=== PATIENT | male | born 1990 | race Caucasian/White ===

== ENCOUNTER 2017-08-18 15:19 | Inpatient (IN) | payer BC, OTHER ==
[~2017-08-18] VITALS: Ht 182.9 cm; Wt 134.7 kg
--- NOTE | ~2017-08-18 | EKG ---
[place], [place] ELECTROCARDIOGRAM REPORT NAME: SUZI BURLESON UNIT #: [id number] ROOM: 401 DOCTOR: ANAMARIA OLIVEROS MD BIRTHDATE: [birth year] DOS: 08/18/2017 TIME: 1703 hours. FINDINGS: 1. Normal sinus rhythm at 80 beats per minute. 2. Possible incomplete right bundle branch block. 3. No previous tracing is available for comparison. ANAMARIA OLIVEROS MD CM:EKGRPT:ELECTROCARDIOGRAM REPORT [id number] ANAMARIA OLIVEROS MD
[~2017-08-18 15:19] MED LIST: ADDERALL XR20 MG PO; ADDERALL30 MG PO; ATARAX,VISTARIL50 MG PO; ONDANSETRON HYDR4 M1 PO; SEPTRA DS 800 M1 TAB PO; ZESTRIL,PRINIVI10 MG PO; ZOLOFT50 MG PO
[2017-08-18 15:22] VITALS: BP 160/88
[2017-08-18 16:03] LABS: BASO % 0.2 % (0.0-1.0); EOS # 0.2 10*3/uL (0.0-0.4); EOS % 1.7 % (1.0-4.0); HEMATOCRIT 43.5 % (42.0-52.0); HEMOGLOBIN 14.2 g/dl (14.0-18.0); LYMPH # 1.6 10*3/uL (1.3-4.4); LYMPH % 13.4 % (27.0-41.0); MEAN CELL VOLUME 91.2 fl (80.0-94.0); MEAN CORPUSCULAR HGB 29.8 pg (27.0-31.0); MEAN CORPUSCULAR HGB CONC 32.6 g/dl (33.0-37.0); MEAN PLATELET VOLUME 9.7 fl (9.6-12.3); MONO # 0.9 10*3/uL (0.1-1.0); MONO % 7.4 % (3.0-9.0); NEUT # 9.3 10*3/uL (2.3-7.9); PLATELET COUNT AUTOMATED 241 10*3/uL (130-400); RED BLOOD COUNT 4.77 10*6/uL (4.50-5.90); RED CELL DISTRI WIDTH 12.8 % (0-14.5)
[2017-08-18 16:31] LABS: ALBUMIN 3.6 gm/dl (3.1-4.5); ALKALINE PHOSPHATASE 114 U/L (45-117); BUN 16 mg/dl (7-24); CHLORIDE 104 mmol/L (98-107); CREATININE 1.15 mg/dL (0.70-1.30); POTASSIUM 3.7 mmol/L (3.5-5.1); SGOT/AST 23 IU/L (3-35); SGPT/ALT 26 U/L (12-78); SODIUM 140 mmol/L (136-145); TOTAL PROTEIN 7.6 gm/dL (6.4-8.2)
[2017-08-18 16:40] VITALS: BP 139/79
[2017-08-18] MEDS ORDERED: ADDERALL 30 MG30 MG PO (17:21)
[2017-08-18 17:40] VITALS: BP 143/78
[2017-08-18 20:02] VITALS: BP 133/64
[2017-08-19 00:06] VITALS: BP 127/67
[2017-08-19 06:44] LABS: BASO % 0.3 % (0.0-1.0); EOS # 0.3 10*3/uL (0.0-0.4); EOS % 2.7 % (1.0-4.0); HEMATOCRIT 38.3 % (42.0-52.0); HEMOGLOBIN 12.4 g/dl (14.0-18.0); LYMPH # 1.2 10*3/uL (1.3-4.4); LYMPH % 11.5 % (27.0-41.0); MEAN CELL VOLUME 92.5 fl (80.0-94.0); MEAN CORPUSCULAR HGB CONC 32.4 g/dl (33.0-37.0); MONO % 10.1 % (3.0-9.0); NEUT # 7.5 10*3/uL (2.3-7.9); PLATELET COUNT AUTOMATED 210 10*3/uL (130-400); RED BLOOD COUNT 4.14 10*6/uL (4.50-5.90); RED CELL DISTRI WIDTH 12.9 % (0-14.5)
[2017-08-19 07:06] LABS: BUN 14 mg/dl (7-24); CHLORIDE 106 mmol/L (98-107); CHOLESTEROL 106 mg/dL (<200); CREATININE 1.05 mg/dL (0.70-1.30); HDL CHOLESTEROL 34 mg/dl (40-60); LDL CHOLESTEROL 54 mg/dL (9-159); SODIUM 141 mmol/L (136-145); TRIGLYCERIDES 90 mg/dl (<150); VLDL CHOLESTEROL 18 mg/dL (6-40)
[2017-08-19 07:14] LABS: INTERNATIONAL NORM RATIO 0.9 (2.0-3.5)
[2017-08-19 08:00] VITALS: BP 139/67; BP 94/80
[2017-08-19 08:15] LABS: VITAMIN D, 25-HYDROXY 18.2 ng/mL (30-100)
[2017-08-19 12:00] VITALS: BP 133/77
[2017-08-19 16:00] VITALS: BP 124/62
[2017-08-19 20:00] VITALS: BP 102/47; BP 163/78
[2017-08-20] VITALS: BP 142/67
[2017-08-20 06:13] LABS: BASO % 0.5 % (0.0-1.0); EOS # 0.4 10*3/uL (0.0-0.4); EOS % 5.3 % (1.0-4.0); HEMATOCRIT 37.6 % (42.0-52.0); HEMOGLOBIN 12.1 g/dl (14.0-18.0); LYMPH # 1.4 10*3/uL (1.3-4.4); LYMPH % 18.2 % (27.0-41.0); MEAN CELL VOLUME 92.4 fl (80.0-94.0); MEAN CORPUSCULAR HGB 29.7 pg (27.0-31.0); MEAN CORPUSCULAR HGB CONC 32.2 g/dl (33.0-37.0); MEAN PLATELET VOLUME 9.9 fl (9.6-12.3); MONO # 0.9 10*3/uL (0.1-1.0); MONO % 11.2 % (3.0-9.0); NEUT % 63.8 % (47.0-73.0); PLATELET COUNT AUTOMATED 219 10*3/uL (130-400); RED BLOOD COUNT 4.07 10*6/uL (4.50-5.90); RED CELL DISTRI WIDTH 12.8 % (0-14.5); WHITE BLOOD COUNT 7.8 10*3/uL (4.8-10.8)
[2017-08-20 06:47] LABS: BUN 8 mg/dl (7-24); CHLORIDE 111 mmol/L (98-107); CREATININE 0.91 mg/dL (0.70-1.30); POTASSIUM 3.9 mmol/L (3.5-5.1); SODIUM 144 mmol/L (136-145)
[2017-08-20 08:00] VITALS: BP 132/82
[2017-08-20 12:00] VITALS: BP 142/76
[2017-08-20 16:00] VITALS: BP 138/76
[2017-08-20 20:00] VITALS: BP 133/74; BP 142/80
[2017-08-21] VITALS: BP 147/82
[2017-08-21 06:04] LABS: BASO # 0.1 10*3/uL (0.0-0.1); BASO % 0.8 % (0.0-1.0); EOS # 0.5 10*3/uL (0.0-0.4); EOS % 7.3 % (1.0-4.0); HEMATOCRIT 37.7 % (42.0-52.0); HEMOGLOBIN 11.9 g/dl (14.0-18.0); LYMPH # 1.3 10*3/uL (1.3-4.4); LYMPH % 19.9 % (27.0-41.0); MEAN CELL VOLUME 93.8 fl (80.0-94.0); MEAN CORPUSCULAR HGB 29.6 pg (27.0-31.0); MEAN CORPUSCULAR HGB CONC 31.6 g/dl (33.0-37.0); MEAN PLATELET VOLUME 9.2 fl (9.6-12.3); MONO # 0.8 10*3/uL (0.1-1.0); MONO % 11.8 % (3.0-9.0); NEUT # 3.9 10*3/uL (2.3-7.9); NEUT % 59.3 % (47.0-73.0); PLATELET COUNT AUTOMATED 251 10*3/uL (130-400); RED BLOOD COUNT 4.02 10*6/uL (4.50-5.90); RED CELL DISTRI WIDTH 12.4 % (0-14.5); WHITE BLOOD COUNT 6.5 10*3/uL (4.8-10.8)
[2017-08-21 06:28] LABS: BUN 9 mg/dl (7-24); CHLORIDE 109 mmol/L (98-107); CREATININE 0.91 mg/dL (0.70-1.30); POTASSIUM 4.3 mmol/L (3.5-5.1); SODIUM 144 mmol/L (136-145)
[2017-08-21 08:00] VITALS: BP 149/87
[2017-08-21] MEDS ORDERED: BACTRIM 400-801 EACH PO (10:30)
[2017-08-21] MEDS ORDERED: VITAMIN D-32000 UNIT PO (10:30)
== END 2017-08-21 13:00 | disposition home or self-care (01) | DRG 854 ==
LOC: ED 15:19 → EDHOLD 16:47 → 4E 16:47
PROVIDERS: Internal Medicine; Nurse Practitioner Family
PROC: 0JBP0ZZ Excision of Left Lower Leg Subcutaneous Tissue and Fascia, Open Approach (ICD-10-PCS; principal; 2017-08-20)
DX: A41.9 Sepsis, unspecified organism (principal); E87.2 Acidosis; L03.116 Cellulitis of left lower limb; R65.20 Severe sepsis without septic shock; R73.9 Hyperglycemia, unspecified; B96.89 Other specified bacterial agents as the cause of diseases classified elsewhere; I10 Essential (primary) hypertension; F90.9 Attention-deficit hyperactivity disorder, unspecified type; F17.210 Nicotine dependence, cigarettes, uncomplicated; E55.9 Vitamin D deficiency, unspecified; E53.8 Deficiency of other specified B group vitamins; Z82.49 Family history of ischemic heart disease and other diseases of the circulatory system; Z83.3 Family history of diabetes mellitus; Z79.899 Other long term (current) drug therapy

== ENCOUNTER → 2017-08-23 | Outpatient (CLI) | payer BC, OTHER ==
[~2017-08-23] MED LIST changes: +ADDERALL 30 MG30 MG PO; +BACTRIM 400-801 EACH PO; +VITAMIN D-32000 UNIT PO
== END ==
LOC: WOUNDCARE 08:45
DX: S81.812A Laceration without foreign body, left lower leg, initial encounter (principal); I10 Essential (primary) hypertension; F17.210 Nicotine dependence, cigarettes, uncomplicated; X58.XXXA Exposure to other specified factors, initial encounter; Y93.89 Activity, other specified; Y92.89 Other specified places as the place of occurrence of the external cause; Y99.8 Other external cause status

== ENCOUNTER → 2017-09-03 | Outpatient (CLI) | payer BC, OTHER | END | disposition home or self-care (01) | LOC: WOUNDCARE 09:31 | DX: L97.821 Non-pressure chronic ulcer of other part of left lower leg limited to breakdown of skin (principal); I10 Essential (primary) hypertension; F90.9 Attention-deficit hyperactivity disorder, unspecified type; F10.239 Alcohol dependence with withdrawal, unspecified; F17.200 Nicotine dependence, unspecified, uncomplicated; Z71.6 Tobacco abuse counseling ==

== ENCOUNTER 2018-10-31 16:01 | Inpatient (IN) | payer BC ==
[~2018-10-31] VITALS: Ht 185.4 cm; Wt 127.0 kg
[2018-10-31] MEDS ORDERED: TOBRADEX 0.1%-0.5 ML OD (16:38)
--- NOTE | 2018-10-31 16:56 | NUR ---
PATIENT MEETS [facility]. CIWA=19. PATIENT WANTS RESIDENTIAL TREATMENT. [place] STAFF WILL PROVIDE REFERRAL OPTIONS. JAN KELLEY B.A. BASEBALL GLOVE STUFFER
--- NOTE | 2018-10-31 17:00 | NUR ---
27 year old MALE admitted to room # 427-1 for stabilization. Reports an addiction to ALCOHOL last used 2 hours prior to admission. Compliant with admission procedure. Patient reports anxiety, sleeplessness and tremors, but is able to sit still, able to focus eyes on nurse during interview. See assessment forms for additional information about patient status.
[2018-10-31 17:01] VITALS: BP 154/91
[2018-10-31 17:41] LABS: BASO # 0.1 10*3/uL (0.0-0.1); BASO % 1.2 % (0.0-1.0); EOS # 0.2 10*3/uL (0.0-0.4); HEMATOCRIT 43.6 % (42.0-52.0); HEMOGLOBIN 14.9 g/dl (14.0-18.0); LYMPH # 1.5 10*3/uL (1.3-4.4); LYMPH % 29.4 % (27.0-41.0); MEAN CELL VOLUME 101.6 fl (80.0-94.0); MEAN CORPUSCULAR HGB 34.7 pg (27.0-31.0); MEAN CORPUSCULAR HGB CONC 34.2 g/dl (33.0-37.0); MEAN PLATELET VOLUME 9.1 fl (9.6-12.3); MONO # 0.6 10*3/uL (0.1-1.0); MONO % 11.1 % (3.0-9.0); NEUT # 2.8 10*3/uL (2.3-7.9); NEUT % 54.7 % (47.0-73.0); PLATELET COUNT AUTOMATED 128 10*3/uL (130-400); RED BLOOD COUNT 4.29 10*6/uL (4.50-5.90); RED CELL DISTRI WIDTH 12.6 % (0-14.5); WHITE BLOOD COUNT 5.1 10*3/uL (4.8-10.8)
[2018-10-31 18:14] LABS: ALBUMIN 3.7 gm/dl (3.1-4.5); ALKALINE PHOSPHATASE 81 U/L (45-117); BUN 12 mg/dl (7-24); CHLORIDE 107 mmol/L (98-107); CREATININE 1.07 mg/dL (0.70-1.30); POTASSIUM 3.5 mmol/L (3.5-5.1); SGOT/AST 281 IU/L (3-35); SGPT/ALT 253 U/L (12-78); SODIUM 142 mmol/L (136-145); TOTAL PROTEIN 7.4 gm/dL (6.4-8.2)
--- NOTE | 2018-10-31 18:25 | NUR ---
MEDICATED WITH PRN IV ATIVAN FOR TREMORS/TWITCHING, ROBAXIN FOR MUSCLE CRAMPS, VISTARIL FOR ANXIETY, AND ALSO STARTED LIBRIUM SCHEDULED FOR WITHDRAWAL SYMPTOMS.
--- NOTE | 2018-10-31 18:37 | NUR ---
DR. ARMSTRONG NOTIFIED OF ETOH LEVEL.
[2018-10-31 18:51] LABS: BILIRUBIN NEGATIVE (NEGATIVE); BLOOD TRACE-INTACT (NEGATIVE); CLARITY CLEAR (CLEAR); COLOR YELLOW (YELLOW); GLUCOSE NEGATIVE (NEGATIVE); KETONE TRACE (NEGATIVE); LEUKO ESTERASE NEGATIVE (NEGATIVE); NITRITE NEGATIVE (NEGATIVE); SPECIFIC GRAVITY 1.015 (1.005-1.030)
[2018-10-31 18:58] LABS: URINE AMPHETAMINES < 1000 (1000ng/ml); URINE BARBITURATES < 200 (200ng/ml); URINE BENZODIAZEPINES < 200 (200ng/ml); URINE CANNABINOIDS (THC) < 50 (50ng/ml); URINE COCAINE < 300 (300ng/ml); URINE METHADONE < 300 (300ng/ml); URINE OPIATES < 300 (300ng/ml)
[2018-10-31 19:00] LABS: URINE PHENCYCLIDINE < 25 (25ng/ml)
[2018-10-31] MEDS ORDERED: [UNRECOGNIZED DRUG - OTHER] OD (19:00)
[2018-10-31] MEDS ORDERED: ADDERALL 30 MG30 MG PO (19:02)
[2018-10-31 19:06] LABS: RBC 0-2 rbc/hpf (0-2)
[2018-10-31 20:00] VITALS: BP 140/72
--- NOTE | 2018-10-31 20:08 | NUR ---
194 ALL EARLIER MEDS EFFECTIVE. RESTING IN BED WITH EYES CLOSED. APPEARS TO BE SLEEPING. VISITOR AT BEDSIDE. MESSAGE TO PHARMACY FOR MVI BAG. NO DISTRESS NOTED.
--- NOTE | 2018-10-31 22:06 | NUR ---
REMAINS SLEEPING WITHOUT DISTRESS. MVI BAG INFUSING WELL IV SITE LH.
--- NOTE | 2018-10-31 23:40 | NUR ---
AWAKE AND ALERT. ROUTINE LIBRIUM PO GIVEN ORDERED. TRAZADONE PER REQUEST FOR SLEEP. WILL MONITOR. RESTING IN BED WATCHING TV. STILL SMELLS OF ALCOHOL. NO S/S OF DT'S NOTED AT PRESENT.
[2018-11-01] VITALS: BP 145/83
--- NOTE | 2018-11-01 00:33 | NUR ---
PT REMAINS AWAKE. TRAZADONE NOT EFFECTIVE YET. WILL CONT TO MONITOR.
--- NOTE | 2018-11-01 02:24 | NUR ---
0225 MEDICATED WITH VISTARIL FOR ANXIETY, ROBAXIN FOR MUSCLE ACHES AND ATIVAN IV FOR TREMORS. WILL MONITOR. REMAINS ALERT AND ORIENTED. HAD BEEN SLEEPING.
--- NOTE | 2018-11-01 03:26 | NUR ---
EARLIER MEDS EFFECTIVE. RESTING IN BED WITH EYES CLOSED. APPEARS TO BE SLEEPING. IV FLUIDS DONE.
[2018-11-01 04:00] VITALS: BP 130/80
--- NOTE | 2018-11-01 06:07 | NUR ---
SLEPT WELL THIS SHIFT. NO DISTRESS NOTED. HEP LOCK INTACT. CONDITION GUARDED.
[2018-11-01 08:00] VITALS: BP 154/82
[2018-11-01 12:00] VITALS: BP 158/104; BP 162/88
--- NOTE | 2018-11-01 13:35 | NUR ---
JAN FROM [facility] WAS NOTIFIED OF PT AND FAMILY REQUEST TO SPEAK TO HER.
--- NOTE | 2018-11-01 13:48 | NUR ---
[place] STAFF SPOKE WITH PATIENT AND FAMILY. PATIENT IS LOOKING FOR COUNSELING FOR HIS AFTERCARE PLAN. PATIENT IS INTERESTED IN RESIDENTIAL TREATMENT. [place] STAFF PROVIDED PATIENT WITH REFERRAL OPTIONS TO LOOK OVER WITH FAMILY. [place] STAFF WILL FOLLOW UP WITH PATIENT. JAN KELLEY B.A. HEALTHCARE SPECIALIST
--- NOTE | 2018-11-01 13:54 | NUR ---
DR AMRSTRONG CALLED AND NOTIFIED PT FAMILY REQUESTING TO SPEAK WITH . ALSO THIS MORNING AND NOON BP WAS ELEVATED.
--- NOTE | 2018-11-01 19:26 | NUR ---
MEDICATED WITH ROUTINE LIBRIUM. VISTARIL PO FOR ANXIETY. WILL MONITOR.
--- NOTE | 2018-11-01 20:10 | NUR ---
DR. SRIVASTAVA NOTIFIED OELEVATED BP AT 167/105 AND 168/110 MANUALLY. ORDERS RECEIVED. PT RESTING IN BED WWATCHING TV.
--- NOTE | 2018-11-01 20:28 | NUR ---
EARLIER MEDS EFFECTIVE.
--- NOTE | 2018-11-01 21:20 | NUR ---
2120 MEDICATED WITH TRAZADONE FOR SLEEP, ROBAXIN FOR MUSCLE ACHES AND ATIVAN IV FOR CONT ANXIETY. WILL MONITOR.
--- NOTE | 2018-11-01 22:02 | NUR ---
BP STILL ELEVATED AT 178/107. PT REQUESTING SOMETHING ELSE FOR NERVES. STATES "I FEEL LIKE I'M SPINNING IN CIRCLES. " REMAINS ALERT, NO TREMORS NOTED. NO DIAPHORESIS NOTED.
[2018-11-01 22:03] VITALS: BP 178/107
--- NOTE | 2018-11-01 22:06 | NUR ---
DR. SRIVASTAVA NOTIFIED OF PT CONT ELEVATED BP AND REQUSET FOR SOMETHING ELSE FOR ANXIETY.
--- NOTE | 2018-11-01 22:26 | NUR ---
2ND DOSE OF TRAZADONE GIVEN DUE TO INEFFECTIVENESS OF FIRST DOSE. CATPRES 0.1MG PO GIVEN PER ORDER. RESTING IN BED WATCHING TV. WILL CONT TO MONITOR.
--- NOTE | 2018-11-01 23:30 | NUR ---
DR. SRIVASTAVA MADE AWARE OF PATIENTS BP. WILL CONTINUE TO MONITOR. RECHECK AFTER LIBRIUM AND ATIVAN GIVEN.
[2018-11-02] VITALS: BP 172/104
--- NOTE | 2018-11-02 | NUR ---
Patient reports the following symptoms of withdrawal: body aches, leg pain, nausea and cocaine cravings. Patient given scheduled/PRN medication to control withdrawal symptoms. Close observation will be maintained. VISTARIL AND ZOFRAN GIVEN. WILL MONITOR AND REASSESS.
--- NOTE | 2018-11-02 02:07 | NUR ---
PATIENT RESTING, NO SIGNS OF DISTRESS. PRN MEDS EFFECTIVE.
--- NOTE | 2018-11-02 02:46 | NUR ---
24 HR chart check completed.
[2018-11-02 04:00] VITALS: BP 150/104
[2018-11-02 11:43] VITALS: BP 163/98
--- NOTE | 2018-11-02 12:16 | NUR ---
[facility] STAFF SENT PATIENT'S ASSESSMENT TO [facility]. THE FACILITY WILL NEED A PHONE ASSESSMENT WITH PATIENT. [place] STAFF WILL FOLLOW UP WITH PATIENT. JAN KELLEY B.A. INTAKE COORDIANTOR
--- NOTE | 2018-11-02 15:37 | NUR ---
PT C/O OF TREMORS, VISUAL HALLUCINATIONS AND ANXIETY PRN ATIVAN GIVEN PER ORDER
[2018-11-02 16:00] VITALS: BP 153/91
--- NOTE | 2018-11-02 19:45 | NUR ---
MEDICATED WITH LIBRIUM STRAIGHT ORDER & VISTARIL FOR ANXIETY. REQUESTING ATIVAN; INFORMED PATIENT THAT IT WAS TOO JADON TO BE GIVEN. PT. VERBALIZED UNDERSTANDING. CALL LIGHT WITHIN REACH. MOTHER & GIRLFRIEND PRESENT IN ROOM.
--- NOTE | 2018-11-02 21:55 | NUR ---
MEDICATED WITH ATIVAN FOR ANXIETY; ROBAXIN FOR MUSCLES ACHES & TRAZODONE FOR SLEEP.
[2018-11-02 22:27] VITALS: BP 162/110
--- NOTE | 2018-11-02 22:28 | NUR ---
CALLED DR. SRIVASTAVA PERTAINING TO PT'S BLOOD PRESSURE BEING ELEVATED. NO NEW ORDERS RECEIVED EXCEPT TO CONTINUE TO MONITOR PT'S BP.
[2018-11-03] VITALS: BP 154/110
[2018-11-03 04:00] VITALS: BP 154/108
[2018-11-03 04:01] VITALS: BP 148/100
--- NOTE | 2018-11-03 04:01 | NUR ---
MEDICATED WITH ATIVAN FOR C/O ANXIETY. PT'S VOICES NO OTHER C/O AT THIS TIME. CALL LIGHT WITHIN REACH. ALSO MEDICATED WITH LIBRIUM PER STRAIGHT ORDER.
--- NOTE | 2018-11-03 04:05 | NUR ---
CALLED DR. SRIVASTAVA PERTAINING TO PT'S ELEVATED BLOOD PRESSURE; HE STATED THAT THE BLOOD PRESSURE WAS GOOD & NO ORDERS RECEIVED. WILL CONTINUE TO MONITOR.
--- NOTE | 2018-11-03 06:00 | NUR ---
RESTING IN BED; VOICES NO C/O AT THIS TIME. CALL LIGHT WITHIN REACH.
[2018-11-03 07:02] LABS: BASO # 0.1 10*3/uL (0.0-0.1); BASO % 0.8 % (0.0-1.0); EOS # 0.2 10*3/uL (0.0-0.4); HEMATOCRIT 43.5 % (42.0-52.0); HEMOGLOBIN 14.8 g/dl (14.0-18.0); LYMPH % 14.1 % (27.0-41.0); MEAN CELL VOLUME 100.9 fl (80.0-94.0); MEAN CORPUSCULAR HGB 34.3 pg (27.0-31.0); MEAN PLATELET VOLUME 9.5 fl (9.6-12.3); MONO # 0.6 10*3/uL (0.1-1.0); MONO % 8.2 % (3.0-9.0); NEUT # 5.4 10*3/uL (2.3-7.9); NEUT % 73.1 % (47.0-73.0); PLATELET COUNT AUTOMATED 138 10*3/uL (130-400); RED BLOOD COUNT 4.31 10*6/uL (4.50-5.90); RED CELL DISTRI WIDTH 12.6 % (0-14.5); WHITE BLOOD COUNT 7.3 10*3/uL (4.8-10.8)
[2018-11-03 07:17] LABS: CREATININE 1.05 mg/dL (0.70-1.30)
--- NOTE | 2018-11-03 08:17 | NUR ---
24 HR chart check completed.
[2018-11-03 09:24] VITALS: BP 140/100
[2018-11-03 12:00] VITALS: BP 150/103
--- NOTE | 2018-11-03 12:11 | NUR ---
CALLED DR. ARMSTRONG IN REGARDS TO PT REQUESTING DISCHARGE. STATES HE WILL BE BACK AROUND AND WILL PLACE DISCHARGE.
--- NOTE | 2018-11-03 12:39 | NUR ---
PATIENT WAS ACCEPTED TO [facility] FOR RESIDENTIAL TREATMENT, HOWEVER PATIENT IS STILL UNDECIDED. PATIENT REFUSED ALL OTHER REFERRAL OPTIONS. PATIENT STATED THAT HE NEEDED MORE TIME TO DECIDE. PATIENT STATED THAT HE WILL NOTIFY HIS NURSE OR [place] STAFF ON HIS FINAL DECISION. JAN KELLEY B.A. FINISH GRINDER
--- NOTE | 2018-11-03 12:41 | NUR ---
ENTERED PT'S ROOM AND TOLD HIM THAT DR. ARMSTROGN WAS GOING TO BE UP TO SEE THE PATIENT THEN HE WOULD PLACE A D/C ORDER. TOLD PATIENT I WOULD BE BACK TO REMOVE HIS IV AND HIS MOTHER STATED THAT HE HAD ALREADY RIPPED OUT THE IV. NO SIGN OF BLEEDING OR SWELLING AT SITE. PATIENT ALSO REMOVED HIS MONITOR AND SAID THAT HE DID NOT WANT IT ON ANYMORE. WAITING FOR DR. ARMSTRONG TO ROUND AND D/C PATIENT.
--- NOTE | 2018-11-03 15:11 | NUR ---
Discharge instructions reviewed with patient/family. Patient receptive and verbalizes understanding. Follow-up care arranged. Written instructions given to patient/family. PT REMOVED HIS OWN IV AND MONITOR. PAPERWORK WAS GIVEN TO PATIENT AND PT STATED HE WANTED TO WALK DOWNSTAIRS. ALL QUESTIONS WERE ANSWERED. MOUNIKA WILKINS
== END 2018-11-03 15:11 | disposition home or self-care (01) | DRG 897 ==
LOC: 4E 16:01
PROVIDERS: Student in an Organized Health Care Education/Training Program; ADMIT Internal Medicine
DX: F10.239 Alcohol dependence with withdrawal, unspecified (principal); F41.9 Anxiety disorder, unspecified; I10 Essential (primary) hypertension; D75.89 Other specified diseases of blood and blood-forming organs; D69.6 Thrombocytopenia, unspecified; Z71.6 Tobacco abuse counseling; E55.9 Vitamin D deficiency, unspecified; E66.9 Obesity, unspecified; F17.210 Nicotine dependence, cigarettes, uncomplicated; F90.9 Attention-deficit hyperactivity disorder, unspecified type; Z68.36 Body mass index [BMI] 36.0-36.9, adult; E53.8 Deficiency of other specified B group vitamins

== ENCOUNTER 2019-02-20 22:01 | Inpatient (IN) | payer BC ==
[~2019-02-20] VITALS: Ht 185.4 cm; Wt 129.3 kg
[~2019-02-20 22:01] MED LIST changes: +TOBRADEX 0.1%-0.5 ML OD; +[UNRECOGNIZED DRUG - OTHER] OD
[2019-02-20 22:05] VITALS: BP 153/100
[2019-02-20 22:48] LABS: BASO # 0.1 10*3/uL (0.0-0.1); BASO % 0.9 % (0.0-1.0); EOS # 0.2 10*3/uL (0.0-0.4); EOS % 2.5 % (1.0-4.0); HEMATOCRIT 47.8 % (42.0-52.0); HEMOGLOBIN 16.1 g/dl (14.0-18.0); LYMPH % 25.7 % (27.0-41.0); MEAN CELL VOLUME 94.5 fl (80.0-94.0); MEAN CORPUSCULAR HGB 31.8 pg (27.0-31.0); MEAN CORPUSCULAR HGB CONC 33.7 g/dl (33.0-37.0); MONO # 0.7 10*3/uL (0.1-1.0); MONO % 9.3 % (3.0-9.0); NEUT # 4.9 10*3/uL (2.3-7.9); NEUT % 61.3 % (47.0-73.0); PLATELET COUNT AUTOMATED 176 10*3/uL (130-400); RED BLOOD COUNT 5.06 10*6/uL (4.50-5.90); RED CELL DISTRI WIDTH 13.7 % (0-14.5); WHITE BLOOD COUNT 7.9 10*3/uL (4.8-10.8)
[2019-02-20 23:01] LABS: ALBUMIN 3.9 gm/dl (3.1-4.5); ALKALINE PHOSPHATASE 88 U/L (45-117); BUN 11 mg/dl (7-24); CHLORIDE 107 mmol/L (98-107); CREATININE 1.03 mg/dL (0.70-1.30); POTASSIUM 3.6 mmol/L (3.5-5.1); SGOT/AST 126 IU/L (3-35); SGPT/ALT 136 U/L (12-78); SODIUM 142 mmol/L (136-145); TOTAL PROTEIN 7.8 gm/dL (6.4-8.2)
[2019-02-20 23:07] LABS: ACETAMINOPHEN (TYLENOL) < 5.0 ug/ml (10-30)
[2019-02-20 23:39] LABS: BILIRUBIN NEGATIVE (NEGATIVE); BLOOD TRACE-INTACT (NEGATIVE); CLARITY CLEAR (CLEAR); COLOR YELLOW (YELLOW); GLUCOSE NEGATIVE (NEGATIVE); KETONE NEGATIVE (NEGATIVE); LEUKO ESTERASE NEGATIVE (NEGATIVE); NITRITE NEGATIVE (NEGATIVE)
[2019-02-20 23:49] LABS: URINE AMPHETAMINES > 1000 (1000ng/ml); URINE BARBITURATES < 200 (200ng/ml); URINE BENZODIAZEPINES < 200 (200ng/ml); URINE CANNABINOIDS (THC) < 50 (50ng/ml); URINE COCAINE < 300 (300ng/ml); URINE METHADONE < 300 (300ng/ml); URINE OPIATES < 300 (300ng/ml)
[2019-02-20 23:51] LABS: URINE PHENCYCLIDINE < 25 (25ng/ml)
[2019-02-21] VITALS (9 sets, daily range): BP systolic 121–166; BP diastolic 70–89
[2019-02-22] VITALS: BP 142/97
[2019-02-22 04:00] VITALS: BP 142/87
[2019-02-22 06:07] LABS: ALBUMIN 3.4 gm/dl (3.1-4.5); ALKALINE PHOSPHATASE 79 U/L (45-117); BUN 18 mg/dl (7-24); CHLORIDE 107 mmol/L (98-107); CREATININE 0.95 mg/dL (0.70-1.30); POTASSIUM 3.7 mmol/L (3.5-5.1); SGOT/AST 62 IU/L (3-35); SGPT/ALT 94 U/L (12-78); SODIUM 141 mmol/L (136-145); TOTAL PROTEIN 6.9 gm/dL (6.4-8.2)
[2019-02-22 07:13] LABS: BASO % 0.9 % (0.0-1.0); EOS # 0.2 10*3/uL (0.0-0.4); EOS % 4.6 % (1.0-4.0); HEMATOCRIT 42.6 % (42.0-52.0); HEMOGLOBIN 14.2 g/dl (14.0-18.0); LYMPH # 1.1 10*3/uL (1.3-4.4); LYMPH % 24.4 % (27.0-41.0); MEAN CELL VOLUME 96.2 fl (80.0-94.0); MEAN CORPUSCULAR HGB 32.1 pg (27.0-31.0); MEAN CORPUSCULAR HGB CONC 33.3 g/dl (33.0-37.0); MEAN PLATELET VOLUME 9.7 fl (9.6-12.3); MONO # 0.5 10*3/uL (0.1-1.0); MONO % 11.1 % (3.0-9.0); NEUT # 2.5 10*3/uL (2.3-7.9); NEUT % 58.1 % (47.0-73.0); RED BLOOD COUNT 4.43 10*6/uL (4.50-5.90); RED CELL DISTRI WIDTH 13.7 % (0-14.5); WHITE BLOOD COUNT 4.3 10*3/uL (4.8-10.8)
[2019-02-22 08:00] VITALS: BP 140/89
[2019-02-22 08:32] LABS: PLATELET COUNT AUTOMATED 119 10*3/uL (130-400)
[2019-02-22 16:00] VITALS: BP 173/107
[2019-02-22 20:00] VITALS: BP 156/90; BP 157/96
[2019-02-23] VITALS: BP 154/85
[2019-02-23 06:39] LABS: BASO % 0.4 % (0.0-1.0); EOS # 0.3 10*3/uL (0.0-0.4); EOS % 4.2 % (1.0-4.0); HEMATOCRIT 43.4 % (42.0-52.0); HEMOGLOBIN 14.5 g/dl (14.0-18.0); LYMPH # 1.3 10*3/uL (1.3-4.4); LYMPH % 18.6 % (27.0-41.0); MEAN CORPUSCULAR HGB 32.1 pg (27.0-31.0); MEAN CORPUSCULAR HGB CONC 33.4 g/dl (33.0-37.0); MEAN PLATELET VOLUME 9.9 fl (9.6-12.3); MONO # 0.7 10*3/uL (0.1-1.0); MONO % 10.2 % (3.0-9.0); NEUT # 4.6 10*3/uL (2.3-7.9); NEUT % 65.9 % (47.0-73.0); PLATELET COUNT AUTOMATED 136 10*3/uL (130-400); RED BLOOD COUNT 4.52 10*6/uL (4.50-5.90); RED CELL DISTRI WIDTH 13.8 % (0-14.5); WHITE BLOOD COUNT 6.9 10*3/uL (4.8-10.8)
[2019-02-23 07:02] LABS: ALBUMIN 3.3 gm/dl (3.1-4.5); BUN 16 mg/dl (7-24); CHLORIDE 107 mmol/L (98-107); CREATININE 0.94 mg/dL (0.70-1.30); POTASSIUM 3.8 mmol/L (3.5-5.1); SGOT/AST 73 IU/L (3-35); SGPT/ALT 100 U/L (12-78); SODIUM 138 mmol/L (136-145); TOTAL PROTEIN 6.8 gm/dL (6.4-8.2)
[2019-02-23 07:03] LABS: ALKALINE PHOSPHATASE 85 U/L (45-117)
[2019-02-23 08:00] VITALS: BP 150/78
== END 2019-02-23 16:03 | disposition home or self-care (01) | DRG 897 ==
LOC: ED 22:01 → ICCU 02-21 04:07 → EDHOLD 02-21 04:07 → ICCU 02-21 12:09 → 4E 02-22 16:08
PROVIDERS: Emergency Medicine; Internal Medicine; ADMIT Internal Medicine
DX: F10.129 Alcohol abuse with intoxication, unspecified (principal); R73.9 Hyperglycemia, unspecified; R74.0 Nonspecific elevation of levels of transaminase and lactic acid dehydrogenase [LDH]; F90.9 Attention-deficit hyperactivity disorder, unspecified type; I10 Essential (primary) hypertension; D75.89 Other specified diseases of blood and blood-forming organs; F15.19 Other stimulant abuse with unspecified stimulant-induced disorder; K76.0 Fatty (change of) liver, not elsewhere classified; D72.810 Lymphocytopenia; E53.8 Deficiency of other specified B group vitamins; E55.9 Vitamin D deficiency, unspecified; F41.9 Anxiety disorder, unspecified; D69.6 Thrombocytopenia, unspecified; E66.9 Obesity, unspecified; F17.210 Nicotine dependence, cigarettes, uncomplicated; Z71.6 Tobacco abuse counseling; Z83.3 Family history of diabetes mellitus; Z82.49 Family history of ischemic heart disease and other diseases of the circulatory system; Z68.37 Body mass index [BMI] 37.0-37.9, adult

== ENCOUNTER 2019-06-12 17:16 | Inpatient (IN) | payer BC ==
[2019-06-12] VITALS (8 sets, daily range): BP systolic 140–175; BP diastolic 77–102
[~2019-06-12] VITALS: Ht 188 cm; Wt 128.0 kg
[2019-06-12 17:49] LABS: BASO # 0.1 10*3/uL (0.0-0.1); BASO % 0.8 % (0.0-1.0); EOS # 0.1 10*3/uL (0.0-0.4); EOS % 0.8 % (1.0-4.0); HEMATOCRIT 48.5 % (42.0-52.0); LYMPH # 1.2 10*3/uL (1.3-4.4); LYMPH % 18.4 % (27.0-41.0); MEAN CELL VOLUME 95.7 fl (80.0-94.0); MEAN CORPUSCULAR HGB 32.9 pg (27.0-31.0); MEAN CORPUSCULAR HGB CONC 34.4 g/dl (33.0-37.0); MEAN PLATELET VOLUME 8.7 fl (9.6-12.3); MONO # 0.4 10*3/uL (0.1-1.0); MONO % 6.6 % (3.0-9.0); NEUT # 4.6 10*3/uL (2.3-7.9); NEUT % 73.2 % (47.0-73.0); PLATELET COUNT AUTOMATED 170 10*3/uL (130-400); RED BLOOD COUNT 5.07 10*6/uL (4.50-5.90); RED CELL DISTRI WIDTH 12.7 % (0-14.5); WHITE BLOOD COUNT 6.3 10*3/uL (4.8-10.8)
[2019-06-12 18:00] LABS: ACT PARTIAL THROMBO TIME 28.7 SECONDS (20.0-32.1)
[2019-06-12 18:05] LABS: ALBUMIN 3.8 gm/dl (3.1-4.5); ALKALINE PHOSPHATASE 97 U/L (45-117); BUN 9 mg/dl (7-24); CHLORIDE 103 mmol/L (98-107); CREATININE 0.93 mg/dL (0.70-1.30); LIPASE 207 U/L (73-393); POTASSIUM 3.9 mmol/L (3.5-5.1); SGOT/AST 93 IU/L (3-35); SGPT/ALT 72 U/L (12-78); SODIUM 137 mmol/L (136-145)
--- NOTE | 2019-06-12 18:09 | NUR ---
PT IS RESTING IN BED WITH EYES CLOSED. PT IS STILL TACHYCARDIAC BUT BLOOD PRESSURE HAS IMPROVED. RESPIRATIONS ARE EASY AND NONLABORED. CALL QUINTEROS IS WITHIN REACH. WILL CONTINUE TO MONITOR.
[2019-06-12 18:11] LABS: ACETAMINOPHEN (TYLENOL) < 5.0 ug/ml (10-30); TROPONIN I < 0.015 ng/ml (<0.045)
[2019-06-12 18:27] LABS: BILIRUBIN NEGATIVE (NEGATIVE); BLOOD TRACE-INTACT (NEGATIVE); CLARITY SL CLOUDY (CLEAR); COLOR YELLOW (YELLOW); GLUCOSE NEGATIVE (NEGATIVE); KETONE TRACE (NEGATIVE); LEUKO ESTERASE NEGATIVE (NEGATIVE); NITRITE NEGATIVE (NEGATIVE); PH 8.5 (5.0-9.0); UROBILINOGEN 0.2 E.U./dl (0.2-1.0)
[2019-06-12 18:28] LABS: BACTERIA 1+
[2019-06-12 18:29] LABS: URINE AMPHETAMINES < 1000 (1000ng/ml); URINE BARBITURATES > 200 (200ng/ml); URINE BENZODIAZEPINES < 200 (200ng/ml); URINE CANNABINOIDS (THC) < 50 (50ng/ml); URINE COCAINE < 300 (300ng/ml); URINE METHADONE < 300 (300ng/ml); URINE OPIATES < 300 (300ng/ml); URINE PHENCYCLIDINE < 25 (25ng/ml)
--- NOTE | 2019-06-12 19:09 | NUR ---
PT RESTING IN BED WITH EYES CLOSED. IN NO ACUTE DISTRESS. SIDERAILS UPX2
--- NOTE | 2019-06-12 19:53 | NUR ---
A 28, admitted to [facility]U, under the services of MARINO Newton DO with a diagnosis of alchohol dependence and withdrawal. Chief complaint is pt was at [facility] day[facility]1 today and had elevated heart rate and blood pressure. Patient arrived via stretcher from ER. Monitor applied. Initial assessment completed. Vital signs taken and recorded. MARINO NEWTON DO notified of admission to the unit. Orders received. See assessment for past medical history, medications and allergies. Patient and/or family oriented to unit. [facility] visitation policy reviewed. Clothing/patient valuable form completed. ROLAN GUADALUPE
--- NOTE | 2019-06-12 20:11 | NUR ---
BOXED LUNCH AND MILK PROVIDED TO PT. PT IS TREMULOUS. HE IS APPROPRIATE AND COOPERATIVE AT THIS TIME. PHYSICIAN AT BEDSIDE.
--- NOTE | 2019-06-12 20:34 | NUR ---
PT ATE WELL. WATCHING TV. HAD REQUESTED SOMETHING TO RELAX HIM. MEDICATED WITH IV ATIVAN ORDERED FOR DT'S EVIDENCED BY TACHYCARDIA, RESTLESSNESS, AND +++ TREMULOUSNESS. IN VIEW OF STAFF, BED EXIT ALARM ON.
--- NOTE | 2019-06-12 20:45 | NUR ---
DR CARR NOTIFIED OF LACTIC ACID 3.0
--- NOTE | 2019-06-12 21:16 | NUR ---
ATIVAN EFFECTIVE...DOZING AT INTERVALS.
--- NOTE | 2019-06-12 21:23 | NUR ---
TRAZADONE PER PT REQUEST FOR SLEEP.
--- NOTE | 2019-06-12 23:13 | NUR ---
DR CARR NOTIFIED OF LACTIC ACIC 2.1 AND PT C/O RESTLESSNESS "I'M ABOUT TO LOSE MY MIND!" HE SAYS. HE IS ABLE TO TELL ME THE DATE AND WHERE HE IS.
--- NOTE | 2019-06-12 23:14 | NUR ---
IV ATIVAN GIVEN PER PT REQUEST.
--- NOTE | 2019-06-12 23:15 | NUR ---
TRAZADONE HAS NOT BEEN EFFECTIVE FOR SLEEP.
--- NOTE | 2019-06-12 23:59 | NUR ---
ZOFRAN, MAALOX, AND IV ATIVAN (1XDOSE) ALL GIVEN AT 2330 FOR "SOUR STOMACH AND HEARTBURN" AND "I JUST CAN'T GET TO SLEEP. I NEED SOMETHING. THEY GIVE ME PHENOBARB IN THAT OTHER PLACE." ATIVAN IS SURE NOT EFFECTIVE PT TOSSES AND TURNS IN BED, SITS UP AND DRINKS LG AMTS OF WATER OUT OF THE PITCHER, ADJUSTS AND TALKS TO TV.
[2019-06-13] VITALS: BP 154/80
--- NOTE | 2019-06-13 02:21 | NUR ---
ATIVAN GIVEN AT 0200 FOR RESTLESSNESS APPEARS TO BE EFFECTIVE. PT DOZING, HR MID 90'S, RR 20/MIN AND REGULAR, SKIN W/D. PT TALKS IN HIS SLEEP (BASELINE ACTIVITY).
--- NOTE | 2019-06-13 02:57 | NUR ---
PT TRIED TO GET OOB...VISUAL HALLUCINATIONS EVIDENCED BY HIM SAYING "THAT NEGRO OVER THERE TOLD ME TO COME WITH HIM!" REORIENTED TO SURROUNDINGS & TIME AND RETURNED TO POSITION OF COMFORT.
[2019-06-13 04:00] VITALS: BP 143/74
--- NOTE | 2019-06-13 05:54 | NUR ---
PT STILL HAVING AUDITORY AND VISUAL HALLUCINATIONS. HE IS PICKING AT THINGS UNSEEN IN AIR AROUND HIM AND JUST SAID LOUDLY TO THE TV, "ARE YOU NUTS?". ATIVAN GIVEN AT 0530 MILDLY EFFECTIVE. NICOTINE PATCH PER PT REQUEST, FOR SMOKING CESSATION.
[2019-06-13 06:14] LABS: BASO % 0.9 % (0.0-1.0); EOS # 0.2 10*3/uL (0.0-0.4); EOS % 3.6 % (1.0-4.0); HEMATOCRIT 43.1 % (42.0-52.0); LYMPH # 1.5 10*3/uL (1.3-4.4); LYMPH % 33.7 % (27.0-41.0); MEAN CELL VOLUME 96.2 fl (80.0-94.0); MEAN CORPUSCULAR HGB 32.6 pg (27.0-31.0); MEAN CORPUSCULAR HGB CONC 33.9 g/dl (33.0-37.0); MEAN PLATELET VOLUME 10.1 fl (9.6-12.3); MONO # 0.4 10*3/uL (0.1-1.0); MONO % 8.5 % (3.0-9.0); NEUT # 2.4 10*3/uL (2.3-7.9); NEUT % 53.1 % (47.0-73.0); PLATELET COUNT AUTOMATED 129 10*3/uL (130-400); RED BLOOD COUNT 4.48 10*6/uL (4.50-5.90); RED CELL DISTRI WIDTH 12.4 % (0-14.5); WHITE BLOOD COUNT 4.5 10*3/uL (4.8-10.8)
[2019-06-13 07:52] VITALS: BP 130/80
--- NOTE | 2019-06-13 07:56 | NUR ---
Awake and alert this AM. Oriented to person and place. Breakfast ordered.
[2019-06-13 08:27] LABS: ALBUMIN 3.2 gm/dl (3.1-4.5); ALKALINE PHOSPHATASE 78 U/L (45-117); BUN 12 mg/dl (7-24); CHLORIDE 105 mmol/L (98-107); CREATININE 0.96 mg/dL (0.70-1.30); POTASSIUM 3.7 mmol/L (3.5-5.1); SGOT/AST 62 IU/L (3-35); SGPT/ALT 59 U/L (12-78); SODIUM 138 mmol/L (136-145); TOTAL PROTEIN 6.7 gm/dL (6.4-8.2)
--- NOTE | 2019-06-13 09:39 | NUR ---
Declined adderal dose this AM.
--- NOTE | 2019-06-13 10:56 | NUR ---
OOB x 2 unsure of location, auditory hallucinations, Medicated.
--- NOTE | 2019-06-13 11:16 | NUR ---
Auditory and visual hallucinations present.
[2019-06-13 11:53] VITALS: BP 146/89
--- NOTE | 2019-06-13 12:54 | NUR ---
ORAL VISTARIL AT PT'S REQUEST. ATE WELL.
[2019-06-13 16:00] VITALS: BP 155/97
--- NOTE | 2019-06-13 16:36 | NUR ---
Medicated for DT's , visual and auditory. Supper ordered.
--- NOTE | 2019-06-13 19:27 | NUR ---
PT STILL WITH AUDITORY AND VISUAL HALLUCINATIONS. ATTEMPTS TO REORIENT. MEDICATED WITH ROUTINE PO ATIVAN AND ROBAXIN FOR MUSCLES CRAMPS/ACHES. IN VIEW OF ICU STAFF AND BED EXIT ALARM ON.
--- NOTE | 2019-06-13 19:39 | NUR ---
HEATED UP DOUBLE CHEESEBURGER PER PT REQUEST. PT SAYS "WHO THOUGHT I WOULD BE EATING AT [employer]?"
[2019-06-13 20:00] VITALS: BP 146/90
--- NOTE | 2019-06-13 20:23 | NUR ---
NEW PATCHES AND LEADS REPLACED PT HAD PULLED OFF EACH AND EVERY ONE OF THEM. EXPLANATIONS TO WHY THEY NEED TO STAY ON FOR CARDIAC MONITORING. PT SAYS "OH I WAS JUST TRYING TO HELP YOU." AGAIN, EXPLANATIONS PROVIDED.
--- NOTE | 2019-06-13 22:07 | NUR ---
PO ATIVAN AT VISTARIL GIVEN PER PT REQUEST TO SLEEP AT 2119 NOT EFFECTIVE...HE IS SITTING IN HIGH SHIPMAN'S POSITION IN BED ASKING FOR ANYTHING ELSE HE CAN GET TO SLEEP. HE ALSO ASKS "IS IT OK IF I CAN JUST TAKE THIS IV OUT?" EXPLAINED RATIONALE TO WHY IV STAYS. MEDICATED WITH TRAZADONE ORDERED.
[2019-06-14] VITALS (9 sets, daily range): BP systolic 114–160; BP diastolic 60–100
--- NOTE | 2019-06-14 00:13 | NUR ---
PT GETTING OOB. STATES HE IS "GOING TO GO HAVE A CIGARETTE. THEY WOULDN'T LET ME SMOKE AT [facility] TODAY." REORIENTATION ATTEMPTS CONTINUE. PT WIDE AWAKE, WATCHING TV AND TALKING TO SELF AND ANSWERING QUESTIONS PRESENTED TO OTHER PTS IN ICU.
--- NOTE | 2019-06-14 00:18 | NUR ---
SECOND TRAZADONE GIVEN 30 MINUTES AFTER FIRST ONE IS ALSO NOT EFFECTIVE FOR INSOMNIA.
--- NOTE | 2019-06-14 01:03 | NUR ---
AWAKE, SITTING UPRIGHT IN BED, TURNED AROUND AND FRANTICALLY "LOOKING FOR THE POLICE. THEY ARE HERE TO TAKE YOU 4 OR 5 NURSES. I'VE BEEN FEELING THEM BUZZING UNDER MY BED FOR MONTHS NOW.". REORIENTED PT AND MEDICATED WITH ATIVAN AND ROBAXIN.
--- NOTE | 2019-06-14 02:01 | NUR ---
PREVIOUS MEDICATIONS NOT EFFECTIVE...I WITNESSED PT JUMP UP OUT OF BED AND WAS STANDING AT THE END OF BED, COMPLETELY DISORIENTED AND TALKING TO HIMSELF. PT RETURNED TO BED AFTER BEING REORIENTED AGAIN.
--- NOTE | 2019-06-14 03:36 | NUR ---
PT CONTINUES TO GET OOB AND WALK AWAY FROM BED. HE WILL NOT KEEP HIS HEART MONITOR ON. HE SAYS "WHY CAN'T I JUST GO HOME, I'LL GET SOME SLEEP THERE, THEN I'LL COME BACK." HE IS LOOKING IN THE NEXT BED FOR "KELY" AND STATES "WHERE IS SHE GONNA SLEEP?"
--- NOTE | 2019-06-14 04:09 | NUR ---
DR CARR NOTIFIED OF PT CONTINUED HALLUCINATIONS, DISORIENTATION, AND BEING UNCOOPERATIVE. PT AGAIN PLACED BACK ON MAINFRAME ARCHITECT, ASSESSED, AND VS TAKEN.
--- NOTE | 2019-06-14 04:47 | NUR ---
STAFF AT BEDSIDE. PT HALLUCINATING, CLIMBING OUT OF BED AND TOWARDS DOOR. YELLING "I'M GOING OUT TO SMOKE! MARCUS HAS CIGARETTES!" REORIENTED TO ICU AGAIN AND ASSISTED BACK TO BED. IV ATIVAN GIVEN.
--- NOTE | 2019-06-14 05:04 | NUR ---
PHENOBARBITAL AND IV ATIVAN NOT YET EFFECTIVE. PT TOO UNCOOPERATIVE AND AGITATED FOR AM LAB DRAW AT THIS TIME... WE WILL CALL LAB TO COME COLLECT SPECIMEN WHEN PT IS MORE COOPERATIVE.
--- NOTE | 2019-06-14 05:12 | NUR ---
THIS RN IS UNABLE TO BE AWAY FROM PT'S BEDSIDE HE CONTINUES TO TRY TO GET OOB OR LEANS OVER HEAD FIRST ALL WHILE TALKING TO HIMSELF. SHIFT DIRECTOR NOTIFIED OF INCREASED AGITATION, CONFUSION, AGGRESSION.
--- NOTE | 2019-06-14 06:55 | NUR ---
Kenny ivan called as pt. increasingly aggressive, bullying his way oot of bed. stating he was running over to his grandmothers, wanted wiskey for breakfast and continually stating he had to get to the truck. With arrival of kenny bills pt. returned to bed. 1:1 sitter ordered and arrived , currently at bedside.
[2019-06-14 07:35] LABS: BASO % 0.4 % (0.0-1.0); EOS # 0.2 10*3/uL (0.0-0.4); EOS % 3.8 % (1.0-4.0); HEMATOCRIT 44.1 % (42.0-52.0); LYMPH % 17.4 % (27.0-41.0); MEAN CELL VOLUME 95.5 fl (80.0-94.0); MEAN CORPUSCULAR HGB 33.1 pg (27.0-31.0); MEAN CORPUSCULAR HGB CONC 34.7 g/dl (33.0-37.0); MEAN PLATELET VOLUME 10.1 fl (9.6-12.3); MONO # 0.3 10*3/uL (0.1-1.0); NEUT % 71.9 % (47.0-73.0); PLATELET COUNT AUTOMATED 104 10*3/uL (130-400); RED BLOOD COUNT 4.62 10*6/uL (4.50-5.90); RED CELL DISTRI WIDTH 12.4 % (0-14.5); WHITE BLOOD COUNT 5.5 10*3/uL (4.8-10.8)
[2019-06-14 07:49] LABS: ALBUMIN 3.5 gm/dl (3.1-4.5); ALKALINE PHOSPHATASE 88 U/L (45-117); BUN 13 mg/dl (7-24); CHLORIDE 106 mmol/L (98-107); CREATININE 0.88 mg/dL (0.70-1.30); POTASSIUM 3.9 mmol/L (3.5-5.1); SGOT/AST 92 IU/L (3-35); SGPT/ALT 73 U/L (12-78); SODIUM 135 mmol/L (136-145); TOTAL PROTEIN 7.3 gm/dL (6.4-8.2)
--- NOTE | 2019-06-14 08:12 | NUR ---
Visual and auditory hallucination continue. Medicated .
--- NOTE | 2019-06-14 09:11 | NUR ---
Bullied his way OOB, very quickly. pulled at monitor cables, stating he is going to "cancel my insurance" Unsteady to stand and ambulate. Assisted back into bed. Visual and auditory hallucinations continue.
--- NOTE | 2019-06-14 10:05 | NUR ---
Medicated for continued DT's w/ agressive behavior. see E-Mar.
--- NOTE | 2019-06-14 10:20 | NUR ---
Assisted to BSC for large BM. Yelling about no redily available hand emergency services professional and punched TV. TV , moved out of jimmy. Requests cell phone. Informed that it is not here. Mothers phone number provided by pt. for retrival of cell phone.
--- NOTE | 2019-06-14 12:51 | NUR ---
1100 Code moncho was called as pt. bullying his way out of bed and andrily shaking bed rails, Having conversation w/hallucination named Mary Grace. Ativan and phenobarbitol was given at this time 1115 Pt. continues to escillate w/ loud voice and foul language Ativan and Benadryl was given. 1130 Meds were inneffective , lunch was provided and pt. began throwing items off of tray ativan was repeated w/o positive effect. 1140 pt. attempted to jump out of bed in a threatening manner, physicians aware and sedation w/ intubation was decided upon. 1152 Ativan was given, pt. 1200 atomadate 20 mg and succicholine 100mg was given for effective sedation in Intubation, OGT #18 and macdonald cath #16 inserted. pt incontinent of large amt urine post intubation. 1215, Propofol and versed were given as pt. was bucking in bed and attempting to remove ETT, Pt. is currently effectivly sedated, complete linen change
--- NOTE | 2019-06-14 13:14 | NUR ---
Dr. Zamora spoke with pt's grandmother and mother as to Intubation and sedation re: behavior.
[2019-06-14 14:23] LABS: ARTERIAL BLOOD GAS PH 7.394 (7.35-7.45)
--- NOTE | 2019-06-14 14:42 | NUR ---
FIO2 DECREASED TO 30%, RN NOTIFIED.
--- NOTE | 2019-06-14 15:05 | NUR ---
Dr. Cisneros was notified of consult. Will see in AM.
--- NOTE | 2019-06-14 16:18 | NUR ---
Repositioned. remains effectivly sedated.
--- NOTE | 2019-06-14 20:12 | NUR ---
1944 RESTING IN BED ON RIGHT SIDE. HOB ELEVATED. SIDE RAILS UP X'S 2. REMAINS NPO. OGT INTACT WITH TF INFUSING WELL AT 20CC/HR. DIPRIVAN CONT AT 50MICS. HEP LOCK INTACT LH. WRIST RESTRAINTS INTACT BILATERALLY. CIRCULATION ADEQUATE. ANTOINE PATENT AND DRAINING CLEAR JAYE URINE. NO DISTRESS NOTED.
--- NOTE | 2019-06-14 20:49 | NUR ---
2029 COMPLETE BED BATH GIVEN AND LINENS CHANGED. 2034 VERSED 5MG IV FOR RESTLESSNESS AND EFFECTIVE.
[2019-06-15] VITALS (12 sets, daily range): BP systolic 110–132; BP diastolic 63–80
--- NOTE | 2019-06-15 00:13 | NUR ---
REMAINS RESTING WITH EYES CLOSED. DIPRIVAN CONT FOR SEDATION. NO DISTRESS NOTED.
--- NOTE | 2019-06-15 01:18 | NUR ---
0110 VERSED 5MG IV FOR RESLTESSNESS. MOVING ARMS AND TRYING TO SIT UP. VERSED EFFECTIVE.
[2019-06-15 06:01] LABS: ALBUMIN 3.5 gm/dl (3.1-4.5); BUN 21 mg/dl (7-24); CHLORIDE 107 mmol/L (98-107); CREATININE 1.04 mg/dL (0.70-1.30); POTASSIUM 3.7 mmol/L (3.5-5.1); SGOT/AST 185 IU/L (3-35); SGPT/ALT 143 U/L (12-78); SODIUM 137 mmol/L (136-145); TOTAL PROTEIN 7.3 gm/dL (6.4-8.2)
[2019-06-15 06:02] LABS: ALKALINE PHOSPHATASE 95 U/L (45-117)
--- NOTE | 2019-06-15 06:05 | NUR ---
REMAINS RESTING IN BED WITH HOB ELEVATED. WRIST RESTRAINTS INTACT BILATERALLY. ET SECURE TO VENT. TF MAINTAINED VIA OGT. NO DISTRESS NOTED. DIPRIVAN CONT FOR SEDATION. CONDITION GUARDED.
[2019-06-15 06:31] LABS: BASO % 0.3 % (0.0-1.0); EOS # 0.2 10*3/uL (0.0-0.4); EOS % 1.4 % (1.0-4.0); HEMATOCRIT 45.6 % (42.0-52.0); LYMPH # 1.1 10*3/uL (1.3-4.4); MEAN CELL VOLUME 97.2 fl (80.0-94.0); MEAN PLATELET VOLUME 10.6 fl (9.6-12.3); MONO # 0.7 10*3/uL (0.1-1.0); NEUT # 9.8 10*3/uL (2.3-7.9); NEUT % 82.8 % (47.0-73.0); PLATELET COUNT AUTOMATED 114 10*3/uL (130-400); RED BLOOD COUNT 4.69 10*6/uL (4.50-5.90); RED CELL DISTRI WIDTH 12.7 % (0-14.5); WHITE BLOOD COUNT 11.8 10*3/uL (4.8-10.8)
--- NOTE | 2019-06-15 06:45 | NUR ---
RESTLESS AND AGITATED. VERSED 5MG IV AND IMMEDIATELY EFFECTIVE.
[2019-06-15 07:19] LABS: ABG BASE EXCESS -2.3 mmol/L (-2.0-2.0); ARTERIAL BLOOD GAS PH 7.421 (7.35-7.45)
--- NOTE | 2019-06-15 08:00 | NUR ---
PT IS INTUBATED AND SEDATED. UNABLE TO ASSES CIWA SCORE AT THIS TIME.
--- NOTE | 2019-06-15 08:15 | NUR ---
PT REMAINS INTUBATED WITH A 7.5 ENDOTUBE,27CM AT THIS LIP. SCATTED RHONCHI NOTED IN LUNG CORDOVA. POX 94% ON 30% FIO2. PT SUCTIONED FOR A SMALL AMOUNT FOR THIN WHITE MUCUS. VSS. OGT PLACMENT VERIFIED WITH AN AIR BOLUS. TUBE FEEDING CONTINUE AT 20CC/HR. ABD. SOFT WITH ACTIVE BOWEL SOUNDS. ANTOINE PATENT FOR DARK JAYE URINE. SOME PERIPHERAL EDEMA NOTED. MEDICATED PT PER PRN ORDER WITH VERSED FOR PT'S AGITATION.
--- NOTE | 2019-06-15 08:30 | NUR ---
PT RESTING. EARLIER VERSED EFFECTIVE.
--- NOTE | 2019-06-15 09:15 | NUR ---
PT VERY DIAPHORETIC BUT AFEBRILE. MEDICATED PT PER PRN ORDER WITH ATIVAN.
--- NOTE | 2019-06-15 09:24 | NUR ---
Patient is currently intubated. Discharge plan undecided at this time. Will continue to follow for discharge planning needs.
--- NOTE | 2019-06-15 10:00 | NUR ---
PT RESTING. EARLIER ATIVAN EFFECTIVE.
--- NOTE | 2019-06-15 11:24 | NUR ---
MEDICATED PT PER PRN ORDER WITH VERSED FOR PT'S AGITATION.
--- NOTE | 2019-06-15 11:27 | NUR ---
MEDICATED PT PER PRN ORDER WITH VERSED FOR AGITATION.
--- NOTE | 2019-06-15 12:00 | NUR ---
MEDICATED PT PER PRN ORDER WITH ATIVAN FOR WITHDRAWL PREVENTION.
--- NOTE | 2019-06-15 12:26 | NUR ---
DR DONOHUE IN TO SEE PT. UPDATED DR DONOHUE ON PT TIDAL VOLUME ZERO AT TIMES AGAIN. TIDAL VOLUME INCREASED BY DR DONOHUE TO 650. ORDERED FOR ABG IN 2 HOURS. RESP. THERAPIST NOTIFIED.
--- NOTE | 2019-06-15 12:30 | NUR ---
PT RESTING EASIER. EARLIER VERSED AND ATIVAN EFFECTIVE.
[2019-06-15 14:46] LABS: ABG BASE EXCESS -3.4 mmol/L (-2.0-2.0); ARTERIAL BLOOD GAS PH 7.395 (7.35-7.45)
--- NOTE | 2019-06-15 14:59 | NUR ---
Dr. Cisneros was called with ABG results and said to titrate fio2 to 25% and draw ABG in A.M.
--- NOTE | 2019-06-15 16:00 | NUR ---
MEDICATED PT PER PRN ORDER WITH VERSED PER DR DONOHUE'S ORDER.
--- NOTE | 2019-06-15 16:10 | NUR ---
PT RESTING. VERSED EFFECTIVE.
--- NOTE | 2019-06-15 17:23 | NUR ---
MEDICATED PT PER PRN ORDER WITH VERSED FOR PT'S AGITATION.
--- NOTE | 2019-06-15 18:14 | NUR ---
MEDICATED PT PER PRN ORDER WITH IV VERSED FOR AGITATION, PO TYLENOL AND ROBAXIN FOR ACHES AND PAINS.
--- NOTE | 2019-06-15 18:30 | NUR ---
DR DONOHUE CALLED IN REGARDING PT. ORDER RECEIVED FOR PORTABLE UMBRELLA SUPERVISOR TITO TO CHECK ENDOTUBE PLACEMENT.
--- NOTE | 2019-06-15 19:22 | NUR ---
MEDICATED PT PER PRN ORDER WITH VERSED FOR PT'S AGITATION.
--- NOTE | 2019-06-15 20:52 | NUR ---
RESTING IN BED WITH HOB ELEVATED. SIDE RAILS UP X'S 2. ET SECURE TO VENT. SUCTIONED ORALLY AND VIA ET. SEE INTERVENTION SCREEN. PULSE OX 93%. OGT INTACT WITH TF MAINTAINED AT 20CC/HR. ANTOINE PATENT AND DRAINING CLEAR JAYE URINE. NSS CONT. DIPRIVAN MAINTAINED AT 50MICS FOR SEDATION. NO DISTRESS NOTED. TUBI REGISTRAR NURSES' REGISTRY INTACT BILATERAL LOWER EXTREMIES. WRIST RESTRAINTS INTACT BILATERALLY.
--- NOTE | 2019-06-15 22:39 | NUR ---
2100 RESTLESS AND AGITATED. VERSED 5MG IV FOR THIS. COMPLETE BED BATH GIVEN AND LINENS CHANGED. REPOSITIONED,. 2229 RESTLESS AND AGITATED AGAIN. ATTEMTPING TO REACH ET. VERSED 5MG IV FOR THIS AND EFFECTIVE.
[2019-06-16] VITALS (12 sets, daily range): BP systolic 103–127; BP diastolic 58–76
--- NOTE | 2019-06-16 00:37 | NUR ---
0020 VERSED 5MG IV AGAIN FOR AGITATION
--- NOTE | 2019-06-16 02:32 | NUR ---
0220 VERSED 5M GIVEN FOR AGITATION. EFFECTIVE. COOL CLOTH TO FOREHEAD. PT IS DIAPHORETIC.
[2019-06-16 06:01] LABS: ALBUMIN 3.1 gm/dl (3.1-4.5); ALKALINE PHOSPHATASE 82 U/L (45-117); BUN 16 mg/dl (7-24); CHLORIDE 110 mmol/L (98-107); CREATININE 0.91 mg/dL (0.70-1.30); POTASSIUM 3.8 mmol/L (3.5-5.1); SGOT/AST 83 IU/L (3-35); SGPT/ALT 115 U/L (12-78); SODIUM 138 mmol/L (136-145); TOTAL PROTEIN 6.8 gm/dL (6.4-8.2)
--- NOTE | 2019-06-16 06:07 | NUR ---
0415 VERSED FOR AGITATION EVIDENCED BY PT ATTEMPTING TO REACH FOR ET. EFFECTIVE. 0600 ET SECURE TO VENT. PULSE OX 94%. DI[RIVAN MAINTAINED AT 50MICS. TF CONT VAI OGT. URINE OUTPUT HAS INPROVED SLIGHTLY. WRIST RESTRAINTS INTACT. CONDITION GUARDED.
[2019-06-16 06:42] LABS: BASO % 0.2 % (0.0-1.0); EOS # 0.1 10*3/uL (0.0-0.4); LYMPH # 1.1 10*3/uL (1.3-4.4); MEAN CELL VOLUME 99.5 fl (80.0-94.0); MEAN CORPUSCULAR HGB 33.3 pg (27.0-31.0); MEAN CORPUSCULAR HGB CONC 33.5 g/dl (33.0-37.0); MEAN PLATELET VOLUME 11.1 fl (9.6-12.3); MONO # 1.2 10*3/uL (0.1-1.0); MONO % 8.1 % (3.0-9.0); NEUT # 11.7 10*3/uL (2.3-7.9); NEUT % 82.1 % (47.0-73.0); PLATELET COUNT AUTOMATED 110 10*3/uL (130-400); RED BLOOD COUNT 4.32 10*6/uL (4.50-5.90); RED CELL DISTRI WIDTH 12.7 % (0-14.5); WHITE BLOOD COUNT 14.2 10*3/uL (4.8-10.8)
[2019-06-16 08:56] LABS: ABG BASE EXCESS -2.1 mmol/L (-2.0-2.0); ARTERIAL BLOOD GAS PH 7.396 (7.35-7.45)
--- NOTE | 2019-06-16 09:46 | NUR ---
no sedation vacation done, as versed q1hour straight has been added
--- NOTE | 2019-06-16 10:13 | NUR ---
CONTINUES WITH Q1 HOUR VERSED, UNABLE TO COMPLETE CIWA SCORE. PT IS INTUBATED AND SEDATED
--- NOTE | 2019-06-16 11:19 | NUR ---
q1 hour versed continues, pt kicks legs and pulls at restraints when close to time for another dose
--- NOTE | 2019-06-16 17:13 | NUR ---
CONTINUES TO GET VERSED Q1 HOUR STRAIGHT WITH GOOD CONTROL TO MAINTAIN PTS COOPERATIVENESS
[2019-06-17] VITALS (11 sets, daily range): BP systolic 111–143; BP diastolic 62–91
--- NOTE | 2019-06-17 00:03 | NUR ---
ROBAXIN AND VISTARIL AT 2320 TO PROMOTE RELAXATION NOT EFFECTIVE. PT MOVING ABOUT AND WHILE I ASSESS, I STARTLE HIM. OTHERWISE, VSS. OGT PLACEMENT VERIFIED OF AIR BOLUS/AUSCULTATION OVER EPIGASTRIC AREA. IV SITES LA ASYMPTOMATIC.
--- NOTE | 2019-06-17 02:04 | NUR ---
Q1H VERSED CONTINUES AND PT BECOMES RESTLESS APPROXIMATELY 25 MINUTES PRIOR TO NEXT TIMES DOSE...ROBAXIN AND VISTARIL ONLY MILDLY EFFECTIVE.
[2019-06-17 05:35] LABS: ALBUMIN 2.7 gm/dl (3.1-4.5); ALKALINE PHOSPHATASE 71 U/L (45-117); BUN 11 mg/dl (7-24); CHLORIDE 110 mmol/L (98-107); CREATININE 0.71 mg/dL (0.70-1.30); SGOT/AST 52 IU/L (3-35); SGPT/ALT 80 U/L (12-78); SODIUM 139 mmol/L (136-145); TOTAL PROTEIN 6.3 gm/dL (6.4-8.2)
[2019-06-17 06:10] LABS: BASO # 0.1 10*3/uL (0.0-0.1); BASO % 0.5 % (0.0-1.0); EOS # 0.4 10*3/uL (0.0-0.4); EOS % 3.6 % (1.0-4.0); HEMATOCRIT 39.6 % (42.0-52.0); LYMPH # 1.5 10*3/uL (1.3-4.4); LYMPH % 15.1 % (27.0-41.0); MEAN CELL VOLUME 102.1 fl (80.0-94.0); MEAN CORPUSCULAR HGB CONC 32.3 g/dl (33.0-37.0); MONO # 1.1 10*3/uL (0.1-1.0); MONO % 11.5 % (3.0-9.0); NEUT # 6.7 10*3/uL (2.3-7.9); NEUT % 68.5 % (47.0-73.0); PLATELET COUNT AUTOMATED 113 10*3/uL (130-400); RED BLOOD COUNT 3.88 10*6/uL (4.50-5.90); RED CELL DISTRI WIDTH 12.8 % (0-14.5); WHITE BLOOD COUNT 9.8 10*3/uL (4.8-10.8)
--- NOTE | 2019-06-17 07:45 | NUR ---
PT FULLY AWAKE WITH DIPROVAN INFUSING AT 50 MCG AND HAD STARTED TO PULL AGGRESSIVELY AT RESTRAINTS. PT WILL MAKE EYE CONTACT BUT DOES NOT FOLLOW COMMANDS, VERSED GIVEN, ETT SECURE, OGT, ANTOINE AND ALL IVS ARE PATENT AND SECURE, ETT SX FOR LARGE AMOUNTS THICK NUNEZ SPUTUM, PT REMAINS RESTRAINED, REPOSITIONED
[2019-06-17 08:10] LABS: ABG BASE EXCESS -2.4 mmol/L (-2.0-2.0); ARTERIAL BLOOD GAS PH 7.364 (7.35-7.45)
--- NOTE | 2019-06-17 09:10 | NUR ---
PT BEING COMPLETELY UNCOOPERATIVE, DESPITE BEING ON 50 MCG OF DIPROVAN, Q 1 HOUR VERSED IS NOT LASTING 35 MINUTES TILL PT IS BOLTS UPRIGHT AND AGRESSIVELY PULLS AT RESTRAINTS, TRIES TO GET THE ETT DOWN TO HIS HANDS, AND IS VERY MAD AND "YELLING" AT STAFF, DR GARCÍA HERE AND CHANGED VERSED TO A VERSED DRIP FOR CONTINOUS INFUSION OF VERSED TO SEE IF THIS KEEPS PT CALMER
--- NOTE | 2019-06-17 10:03 | NUR ---
09:18 FIO2 INCREASED TO 40% PO2 59 SaO2 90%
--- NOTE | 2019-06-17 11:14 | NUR ---
MIDLINE PLACED IN RAC PER POLICY, VERSED INCREASED TO 6MG
--- NOTE | 2019-06-17 12:00 | NUR ---
VERSED DRIP INCREASED AT 7MG
--- NOTE | 2019-06-17 12:45 | NUR ---
PT BOLTED UPRIGHT, AND WAS CLIMBING OOB, KICKING, HAD HOLD OF ETT, STAFF EMERGENCY BUTTON ACTIVATED, RESTRAINTS ADDED TO LEG, DR CARSON NOTIFIED, VERSED DRIP INCREASED TO 10 MG ( MAX IS 12.8) STAT HALDOL GIVEN, APPRENTICE ELECTRICIAN AWARE
--- NOTE | 2019-06-17 13:03 | NUR ---
HALDOL AND INCREASE OF VERSED DRIP TO 10 ARE EFFCTIVE AT PRESENT HOB REMAINS ELEVATED AT 30, 3 LIMBS ARE RESTRAINED
--- NOTE | 2019-06-17 14:19 | NUR ---
13:50 PT CHANGED TO CPAP [address] DONOHUE. PT ON THESES PARAMETERS X APPROX. [address] DONOHUE, PT EXTUBATED. PLACED ON 2 L NC. SPO2 94% NO STRIDOR. BBSs CLEAR. VENT ON S/B. RESPS REGULAR AND UNLABORED.
--- NOTE | 2019-06-17 14:32 | NUR ---
TOLERATING EXTUBATION WELL, COOPERATIVE
--- NOTE | 2019-06-17 16:30 | NUR ---
ALERT AND ORIENTED, COOPERATIVE TAKING CLEAR LIQUIDS EASILY
--- NOTE | 2019-06-17 17:00 | NUR ---
macdonald removed at pts request
--- NOTE | 2019-06-17 19:36 | NUR ---
ANXIOUS AND C/O MUSCLE CRAMPS. VISTARIL AND ROBAXIN GIVEN PER ORDER FOR WITHDRAWL SYMPTOMS.
--- NOTE | 2019-06-17 20:30 | NUR ---
VISTARIL AND ROBAXIN APPEARS HELPFUL PATIENT RESTING IN BED.
--- NOTE | 2019-06-17 20:52 | NUR ---
SPOKE WITH PATIENT MOTHER AND NOTIFIED OF PT. CONDITION.
--- NOTE | 2019-06-17 21:17 | NUR ---
TRAZADONE GIVEN PER ORDER FOR INSOMNIA. SEE MAR.
--- NOTE | 2019-06-17 22:03 | NUR ---
TRAZADONE EFFECTIVE PATIENT IN DEEP SLEEP. PULSE OX DROPPED TO 87-89%. O2 2L VIA NC APPLIED AND PULSE OX WENT TO 96%. KEEPING O2 2L NC IN USE WHILE PATIENT SLEEPING. HAD PATIENT TAKE DEEP BREATHS AND HE DID HAVE MOIST COUGH AND WENT BACK TO SLEEP.
--- NOTE | 2019-06-17 22:49 | NUR ---
24 HR chart check completed.
--- NOTE | 2019-06-17 23:20 | NUR ---
MOIST COUGH NOTED. RESTING. EYES CLOSED.
--- NOTE | 2019-06-17 23:39 | NUR ---
RESTING EYES CLOSED. RESP EASY AND REG.
[2019-06-18] VITALS: BP 131/87
--- NOTE | 2019-06-18 00:12 | NUR ---
DECREASED NC TO 1.5L O2 PULSE OS REMAINING 94-98%. WILL CONTINUE TO WEAN OFF.
--- NOTE | 2019-06-18 01:20 | NUR ---
AWAKEND MOIST COUGH. C/O FEELING ANXIOUS AND MUSCLE CRAMPS. VISTARIL AND ROBAXIN GIVEN PER ORDER FOR WITHDRAWL SYMPTOMS, SEE MAR. VOIDED 400CC GREENISH YELLOW URINE AND DRANK 360CC APPLE JUICE AND WATER AND WENT BACK TO SLEEP.
--- NOTE | 2019-06-18 02:20 | NUR ---
SLEEPING RESP EASY AND REG. ROBAXIN AND VISTARIL EFFECTIVE FOR WITHDRAWL SYMPTOMS.
[2019-06-18 04:00] VITALS: BP 121/73
--- NOTE | 2019-06-18 04:13 | NUR ---
DECREASED O2 TO 1L VIA NC PATIENT PULSE OX WAS 96% ON 1.5L.
[2019-06-18 07:13] LABS: BASO # 0.1 10*3/uL (0.0-0.1); BASO % 0.6 % (0.0-1.0); EOS # 0.5 10*3/uL (0.0-0.4); EOS % 5.9 % (1.0-4.0); HEMATOCRIT 41.9 % (42.0-52.0); LYMPH # 1.2 10*3/uL (1.3-4.4); LYMPH % 15.2 % (27.0-41.0); MEAN CELL VOLUME 99.5 fl (80.0-94.0); MEAN CORPUSCULAR HGB 33.5 pg (27.0-31.0); MEAN CORPUSCULAR HGB CONC 33.7 g/dl (33.0-37.0); MEAN PLATELET VOLUME 9.4 fl (9.6-12.3); MONO % 13.3 % (3.0-9.0); NEUT % 64.2 % (47.0-73.0); PLATELET COUNT AUTOMATED 143 10*3/uL (130-400); RED BLOOD COUNT 4.21 10*6/uL (4.50-5.90); RED CELL DISTRI WIDTH 12.6 % (0-14.5); WHITE BLOOD COUNT 7.8 10*3/uL (4.8-10.8)
[2019-06-18 07:40] LABS: ALKALINE PHOSPHATASE 82 U/L (45-117); BUN 10 mg/dl (7-24); CHLORIDE 108 mmol/L (98-107); CREATININE 0.85 mg/dL (0.70-1.30); POTASSIUM 3.7 mmol/L (3.5-5.1); SGOT/AST 93 IU/L (3-35); SGPT/ALT 105 U/L (12-78); SODIUM 140 mmol/L (136-145); TOTAL PROTEIN 6.9 gm/dL (6.4-8.2)
[2019-06-18 08:00] VITALS: BP 168/112
--- NOTE | 2019-06-18 08:05 | NUR ---
DR CARSON UPDATED ON ELEVATED BP
--- NOTE | 2019-06-18 08:51 | NUR ---
PT ALERT AND ORIENTED, COOPERATIVE UP TO RECLINER, TOLERATING REG DIET WELL "WOW, THIS FEELS LIKE A HOTEL" VISTARIL GIVEN TO PREVENT ANXIETY
--- NOTE | 2019-06-18 11:30 | NUR ---
REMAINS UP IN RECLINER, REFUSES TO BATH
[2019-06-18 12:00] VITALS: BP 132/87
[2019-06-18 16:00] VITALS: BP 127/84
--- NOTE | 2019-06-18 19:00 | NUR ---
REPORT RECEIVED. PT LYING IN BED AT THIS TIME. CALL LIGHT IN REACH
[2019-06-18 20:00] VITALS: BP 138/88
--- NOTE | 2019-06-18 21:54 | NUR ---
VISTARIL GIVEN FOR COMPLAINTS OF ANXIETY. TRAZADONE GIVEN FOR COMPLAINTS OF INSOMNIA. SEE MAR
--- NOTE | 2019-06-18 23:00 | NUR ---
VISTARIL AND TRAZADONE APPEAR EFFECTIVE. PT SLEEPING
[2019-06-19] VITALS: BP 127/75
--- NOTE | 2019-06-19 01:00 | NUR ---
PT SLEEPING AT THIS TIME. CALL LIGHT IN REACH
--- NOTE | 2019-06-19 03:00 | NUR ---
PT RESTING WITH EYES CLOSED. CALL LIGHT IN REACH
--- NOTE | 2019-06-19 05:00 | NUR ---
PT APPEARS TO BE SLEEPING
--- NOTE | 2019-06-19 06:02 | NUR ---
VISTARIL GIVEN FOR COMPLAINTS OF ANXIETY/RESTLESSNESS. WILL MONITOR
[2019-06-19 06:41] LABS: ALBUMIN 2.9 gm/dl (3.1-4.5); ALKALINE PHOSPHATASE 79 U/L (45-117); BUN 15 mg/dl (7-24); CHLORIDE 106 mmol/L (98-107); CREATININE 0.73 mg/dL (0.70-1.30); POTASSIUM 3.4 mmol/L (3.5-5.1); SGOT/AST 75 IU/L (3-35); SGPT/ALT 121 U/L (12-78); SODIUM 141 mmol/L (136-145); TOTAL PROTEIN 6.4 gm/dL (6.4-8.2)
[2019-06-19 06:50] LABS: BASO # 0.1 10*3/uL (0.0-0.1); BASO % 1.1 % (0.0-1.0); EOS # 0.5 10*3/uL (0.0-0.4); EOS % 7.3 % (1.0-4.0); HEMATOCRIT 39.7 % (42.0-52.0); LYMPH # 1.5 10*3/uL (1.3-4.4); LYMPH % 21.3 % (27.0-41.0); MEAN CELL VOLUME 98.5 fl (80.0-94.0); MEAN CORPUSCULAR HGB 33.5 pg (27.0-31.0); MEAN PLATELET VOLUME 10.1 fl (9.6-12.3); MONO # 1.2 10*3/uL (0.1-1.0); MONO % 16.2 % (3.0-9.0); NEUT # 3.8 10*3/uL (2.3-7.9); NEUT % 53.3 % (47.0-73.0); RED BLOOD COUNT 4.03 10*6/uL (4.50-5.90); RED CELL DISTRI WIDTH 12.5 % (0-14.5); WHITE BLOOD COUNT 7.1 10*3/uL (4.8-10.8)
[2019-06-19 06:51] LABS: PLATELET COUNT AUTOMATED 196 10*3/uL (130-400)
[2019-06-19 08:00] VITALS: BP 126/67
--- NOTE | 2019-06-19 08:25 | NUR ---
PT MEDICATED WITH ROBAXIN FOR C/O MUSCLE ACHES. SEE EMAR.
--- NOTE | 2019-06-19 09:30 | NUR ---
DR. DONOHUE IN TO SEE PT.
--- NOTE | 2019-06-19 10:00 | NUR ---
PT SLEEPING IN BED. RESP-EASY AND REGULAR. MEDICATION SEEMS TO BE EFFECTIVE. CALL LIGHT IN REACH.
[2019-06-19] MEDS ORDERED: VITAMIN B-1100 M1 PO (11:19)
[2019-06-19] MEDS ORDERED: NATURE'S BLEND F1 MG PO (11:19)
[2019-06-19] MEDS ORDERED: THERA TABLET400 MCG PO (11:19)
[2019-06-19] MEDS ORDERED: Vitamin D (1,000 UNI PO (11:19)
[2019-06-19] MEDS ORDERED: AMOXICILLIN500 M2 PO (11:19)
--- NOTE | 2019-06-19 12:20 | NUR ---
Discharge instructions reviewed with patient/family. Patient receptive and verbalizes understanding. Follow-up care arranged. Written instructions given to patient/family. HEPLOCK REMOVED 2X2 APPLIED. MONITOR REMOVED. ANA PAULA AGUIAR
== END 2019-06-19 12:20 | disposition home or self-care (01) | DRG 896 ==
LOC: ED 17:16 → EDHOLD 18:41 → ICCU 18:41 → 4NE 06-18 16:02
PROVIDERS: Emergency Medicine; Family Medicine; Internal Medicine; Internal Medicine Critical Care Medicine; Student in an Organized Health Care Education/Training Program; ADMIT Internal Medicine
PROC: 0BH17EZ Insertion of Endotracheal Airway into Trachea, Via Natural or Artificial Opening (ICD-10-PCS; principal; 2019-06-14)
PROC: 5A1945Z Respiratory Ventilation, 24-96 Consecutive Hours (ICD-10-PCS; principal; 2019-06-14)
DX: F10.232 Alcohol dependence with withdrawal with perceptual disturbance (principal); J96.00 Acute respiratory failure, unspecified whether with hypoxia or hypercapnia; A41.89 Other specified sepsis; J18.9 Pneumonia, unspecified organism; F10.231 Alcohol dependence with withdrawal delirium; F10.221 Alcohol dependence with intoxication delirium; R74.0 Nonspecific elevation of levels of transaminase and lactic acid dehydrogenase [LDH]; R44.1 Visual hallucinations; I10 Essential (primary) hypertension; F90.9 Attention-deficit hyperactivity disorder, unspecified type; K76.0 Fatty (change of) liver, not elsewhere classified; F17.210 Nicotine dependence, cigarettes, uncomplicated; E53.8 Deficiency of other specified B group vitamins; D75.89 Other specified diseases of blood and blood-forming organs; E66.9 Obesity, unspecified; F41.1 Generalized anxiety disorder; K04.7 Periapical abscess without sinus; E87.8 Other disorders of electrolyte and fluid balance, not elsewhere classified; E87.6 Hypokalemia; R73.9 Hyperglycemia, unspecified; R31.21 Asymptomatic microscopic hematuria; Z82.49 Family history of ischemic heart disease and other diseases of the circulatory system; Z83.3 Family history of diabetes mellitus; Z68.36 Body mass index [BMI] 36.0-36.9, adult

== ENCOUNTER 2019-06-23 18:06 | Emergency (ER) | payer BC ==
[~2019-06-23] VITALS: Ht 170.1 cm; Wt 130.4 kg
[~2019-06-23 18:06] MED LIST changes: +AMOXICILLIN500 M2 PO; +NATURE'S BLEND F1 MG PO; +THERA TABLET400 MCG PO; +VITAMIN B-1100 M1 PO; +Vitamin D (1,000 UNI PO
[2019-06-23 19:16] LABS: HEMATOCRIT 49.9 % (42.0-52.0); MEAN CELL VOLUME 97.8 fl (80.0-94.0); MEAN CORPUSCULAR HGB 32.9 pg (27.0-31.0); MEAN CORPUSCULAR HGB CONC 33.7 g/dl (33.0-37.0); MEAN PLATELET VOLUME 8.7 fl (9.6-12.3); PLATELET COUNT AUTOMATED 476 10*3/uL (130-400); RED CELL DISTRI WIDTH 12.5 % (0-14.5); WHITE BLOOD COUNT 9.3 10*3/uL (4.8-10.8)
[2019-06-23 19:24] LABS: URINE AMPHETAMINES > 1000 (1000ng/ml); URINE BARBITURATES < 200 (200ng/ml); URINE BENZODIAZEPINES < 200 (200ng/ml); URINE CANNABINOIDS (THC) < 50 (50ng/ml); URINE COCAINE < 300 (300ng/ml); URINE METHADONE < 300 (300ng/ml); URINE OPIATES < 300 (300ng/ml)
[2019-06-23 19:25] LABS: CLARITY CLEAR (CLEAR); COLOR YELLOW (YELLOW)
[2019-06-23 19:26] LABS: BACTERIA TRACE; BILIRUBIN NEGATIVE (NEGATIVE); BLOOD NEGATIVE (NEGATIVE); GLUCOSE NEGATIVE (NEGATIVE); KETONE NEGATIVE (NEGATIVE); LEUKO ESTERASE NEGATIVE (NEGATIVE); NITRITE NEGATIVE (NEGATIVE); SPECIFIC GRAVITY 1.005 (1.005-1.030); UROBILINOGEN 0.2 E.U./dl (0.2-1.0)
[2019-06-23 19:27] LABS: URINE PHENCYCLIDINE < 25 (25ng/ml)
[2019-06-23 19:31] LABS: ALBUMIN 4.1 gm/dl (3.1-4.5); ALKALINE PHOSPHATASE 96 U/L (45-117); BUN 9 mg/dl (7-24); CHLORIDE 107 mmol/L (98-107); CREATININE 0.94 mg/dL (0.70-1.30); POTASSIUM 4.2 mmol/L (3.5-5.1); SGOT/AST 107 IU/L (3-35); SGPT/ALT 249 U/L (12-78); SODIUM 142 mmol/L (136-145); TOTAL PROTEIN 8.4 gm/dL (6.4-8.2)
[2019-06-23 19:38] LABS: ATYPICAL LYMPHS 6 % (0-0); BASOPHILS 1 % (0-1); PLATELET SUFFICIENCY NORMAL (NORMAL); TOTAL CELLS COUNTED 100 #CELLS
[2019-06-23 19:53] LABS: ACETAMINOPHEN (TYLENOL) < 5.0 ug/ml (10-30)
== END 2019-06-23 20:36 | disposition left against medical advice (07) ==
LOC: ED 18:06
PROVIDERS: Physician Assistant
DX: F10.929 Alcohol use, unspecified with intoxication, unspecified (principal); Z79.899 Other long term (current) drug therapy

== ENCOUNTER 2019-07-15 19:08 | Inpatient (IN) | payer BC, OTHER ==
[~2019-07-15] VITALS: Ht 182.8 cm; Wt 123.9 kg
[2019-07-15 19:08] VITALS: BP 174/96
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
[2019-07-15 19:33] LABS: BASO # 0.1 10*3/uL (0.0-0.1); BASO % 0.8 % (0.0-1.0); EOS # 0.2 10*3/uL (0.0-0.4); EOS % 2.5 % (1.0-4.0); HEMATOCRIT 53.2 % (42.0-52.0); LYMPH # 3.2 10*3/uL (1.3-4.4); LYMPH % 43.5 % (27.0-41.0); MEAN CELL VOLUME 95.9 fl (80.0-94.0); MEAN CORPUSCULAR HGB 32.6 pg (27.0-31.0); MEAN PLATELET VOLUME 8.9 fl (9.6-12.3); MONO # 0.3 10*3/uL (0.1-1.0); MONO % 4.1 % (3.0-9.0); NEUT # 3.5 10*3/uL (2.3-7.9); NEUT % 48.5 % (47.0-73.0); PLATELET COUNT AUTOMATED 276 10*3/uL (130-400); RED BLOOD COUNT 5.55 10*6/uL (4.50-5.90); WHITE BLOOD COUNT 7.3 10*3/uL (4.8-10.8)
[2019-07-15 19:48] LABS: ALKALINE PHOSPHATASE 93 U/L (45-117); BUN 9 mg/dl (7-24); CHLORIDE 108 mmol/L (98-107); CREATININE 1.17 mg/dL (0.70-1.30); SGOT/AST 38 IU/L (3-35); SGPT/ALT 46 U/L (12-78); SODIUM 144 mmol/L (136-145); TOTAL PROTEIN 8.1 gm/dL (6.4-8.2)
[2019-07-15 19:51] LABS: ACETAMINOPHEN (TYLENOL) < 5.0 ug/ml (10-30)
[2019-07-15 20:01] VITALS: BP 165/110
--- NOTE | 2019-07-15 20:09 | NUR ---
UNABLE TO OBTAIN IV ACCESS AT THIS TIME BY 2 NURSES. CHARGE GREGORY MADE AWARE, SHE WILL ATTEMPT.
[2019-07-15 21:30] VITALS: BP 134/76
--- NOTE | 2019-07-15 21:45 | NUR ---
[facility] FAXED TO [facility]. PT TRANSPORTED TO [facility] AT THIS TIME IN STABLE CONDITION, BEDSIDE REPORT GIVEN TO KATHY MARTINEZ. ALL QUESTIONS AND CONCERNS ADDRESSED.
[2019-07-15 22:10] VITALS: BP 138/70
--- NOTE | 2019-07-15 22:10 | NUR ---
A 28, admitted to [facility], under the services of LESLIE Daniel DO with a diagnosis of ALCOHOL INTOXICATION. Chief complaint is TREMORS. Patient arrived via ambulance from ER. Monitor applied. Initial assessment completed. Vital signs taken and recorded. LESLIE DANIEL DO notified of admission to the unit. Orders received. See assessment for past medical history, medications and allergies. Patient and/or family oriented to unit. [facility] visitation policy reviewed. Clothing/patient valuable form completed. ORDERS RECEIVED FROM JUAN ATKINSON
--- NOTE | 2019-07-15 22:15 | NUR ---
SPOKE WITH DR. ARGUETA REGARDING ROUTINE CONSULT. PER DR. ARGUETA, SHE WILL SEE THE PATIENT ON WEDNESDAY.
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
--- NOTE | 2019-07-15 22:39 | NUR ---
SPOKE WITH POISON CONTROL. PATIENT CONDITION REVIEWED. NO FURTHER RECOMMENDATIONS AT THIS TIME.
--- NOTE | 2019-07-15 22:41 | NUR ---
SPOKE WITH DR. ASHLEY. MED REC REVIEWED WITH PATIENT. HE STATES HE HASN'T TAKEN MEDS FOR SEVERAL WEEKS BY PERSONAL CHOICE BUT IS STILL SUPPOSED TO TAKE THEM.
--- NOTE | 2019-07-16 | NUR ---
MORPHINE AND ZOFRAN GIVEN FOR BACK TENDERNESS AND PAIN AND NAUSEA.
[2019-07-16 00:39] LABS: CLARITY CLEAR (CLEAR); COLOR YELLOW (YELLOW)
[2019-07-16 00:40] LABS: BILIRUBIN NEGATIVE (NEGATIVE); GLUCOSE NEGATIVE (NEGATIVE); KETONE NEGATIVE (NEGATIVE)
[2019-07-16 00:41] LABS: BLOOD TRACE-INTACT (NEGATIVE); LEUKO ESTERASE NEGATIVE (NEGATIVE); NITRITE NEGATIVE (NEGATIVE); PH 6.5 (5.0-9.0); UROBILINOGEN 0.2 E.U./dl (0.2-1.0)
[2019-07-16 00:47] LABS: BACTERIA 1+
[2019-07-16 00:49] LABS: URINE AMPHETAMINES < 1000 (1000ng/ml); URINE BARBITURATES < 200 (200ng/ml); URINE BENZODIAZEPINES < 200 (200ng/ml); URINE CANNABINOIDS (THC) < 50 (50ng/ml); URINE COCAINE < 300 (300ng/ml); URINE METHADONE < 300 (300ng/ml); URINE OPIATES > 300 (300ng/ml)
[2019-07-16 00:50] LABS: URINE PHENCYCLIDINE < 25 (25ng/ml)
--- NOTE | 2019-07-16 03:20 | NUR ---
IV ATIVAN EFFECTIVE. PATIENT RESTING COMFORTABLY AT THIS TIME. CALL LIGHT WITHIN REACH
[2019-07-16 04:00] VITALS: BP 122/68
[2019-07-16 05:29] LABS: ALBUMIN 3.3 gm/dl (3.1-4.5); BUN 11 mg/dl (7-24); CHLORIDE 105 mmol/L (98-107); CHOLESTEROL 198 mg/dL (<200); CREATININE 1.03 mg/dL (0.70-1.30); POTASSIUM 3.4 mmol/L (3.5-5.1); SGOT/AST 31 IU/L (3-35); SGPT/ALT 40 U/L (12-78); SODIUM 139 mmol/L (136-145)
[2019-07-16 05:30] LABS: ALKALINE PHOSPHATASE 79 U/L (45-117)
[2019-07-16 05:36] LABS: FREE T4 0.89 ng/dl (0.76-1.46); HDL CHOLESTEROL 59 mg/dl (40-60); LDL CHOLESTEROL 102 mg/dL (9-159); TRIGLYCERIDES 184 mg/dl (<150); VLDL CHOLESTEROL 37 mg/dL (6-40)
[2019-07-16 05:41] LABS: BASO % 0.5 % (0.0-1.0); EOS # 0.2 10*3/uL (0.0-0.4); HEMATOCRIT 46.6 % (42.0-52.0); LYMPH # 2.3 10*3/uL (1.3-4.4); LYMPH % 38.2 % (27.0-41.0); MEAN CELL VOLUME 96.3 fl (80.0-94.0); MEAN CORPUSCULAR HGB 32.9 pg (27.0-31.0); MEAN CORPUSCULAR HGB CONC 34.1 g/dl (33.0-37.0); MEAN PLATELET VOLUME 9.4 fl (9.6-12.3); MONO # 0.4 10*3/uL (0.1-1.0); MONO % 6.8 % (3.0-9.0); NEUT # 3.1 10*3/uL (2.3-7.9); PLATELET COUNT AUTOMATED 231 10*3/uL (130-400); RED BLOOD COUNT 4.84 10*6/uL (4.50-5.90)
[2019-07-16 07:34] LABS: VITAMIN D, 25-HYDROXY 23.6 ng/mL (30-100)
[2019-07-16 08:00] VITALS: BP 146/80
--- NOTE | 2019-07-16 08:30 | NUR ---
DEONTE MERCADO CALLED AND SHE WILL SES PATIENT TODAY - DR NEFF ROUNDED AND PER PT HE IS AGAIN DENYING SUICIDAL THOUGHTS, DENIES TAKING MORE TRAZADONE THEN ORDERED BUT ADMITS THE PILL BOTTLE WAS DROPPED AND THEY MAY HAVE MISSED A FEW PILLS. PER PT HE WANTS TO GO HOME HE HAS STUFF THAT NEEDS DONE & HE IS NOPT INTERESTED IN STOPPING DRINKING AT THIS TIME BUT WOULD BE OPEN TO BEING GIVEN INFORMATION ABOUT OUTPATIENT TREATMENT IF HE DECIDES..
--- NOTE | 2019-07-16 08:57 | NUR ---
LAYING ON LEFT SIDE EYES CLOSED, RESP EASY AND NONLABORED -
--- NOTE | 2019-07-16 09:56 | NUR ---
met with client, he said that he has been having issues with drinking and he knows that he needs to slow down. he said that he went to a hotel and he was drinking and then he had taken sleeping pills to sleep, not to , client denies any suicidal ideation, he said that he never would think of that, he said that his gram had called and he didnt have his phone so when she couldnt reach him then she called the police to check on him and he said he was drunk and they saw the pill bottle and thought he had overdosed, he denies this. client is a&ox4, he wants to go home, he does not want any treatment. he reports that he has a place to go. when i looked at the record it looks like he is getting alcohol treatment with [facility], so he can continue to follow with them. he denies any needs. he has no signs or symptom of hallucinations. he is not a present risk for self harm and can go home with outpatient follow up. discussed with his nurse.
--- NOTE | 2019-07-16 10:04 | NUR ---
VISTARIL GIVEN AFTER SEEN BY DEONTE SHERIDAN TO DISCHARGE HOME.. MILD TREMORS
--- NOTE | 2019-07-16 10:05 | NUR ---
DR PERES NOTIFIED OF OK TO DISCHARGE
--- NOTE | 2019-07-16 10:29 | NUR ---
SLEEPING AFTER GIVEN VISTARIL FOR TREMORS
[2019-07-16 12:00] VITALS: BP 152/76
--- NOTE | 2019-07-16 12:30 | NUR ---
Hep Lock discontinued. Site asymptomatic. Pressure applied. Sterile dressing applied. Discharge instructions reviewed with patient/family. Patient receptive and verbalizes understanding. Follow-up care arranged. Written instructions given to patient/family. [facility]
--- NOTE | 2019-07-16 12:31 | NUR ---
PATIENT TAKEN OUT VIA WHEELCHAIR WITH BELONGINGS - GRANDMOTHER PICKING HIM UP - PT INSTRUCTED NOT TO DRIVE FOR 24 HOURS D/T MEDICATIONS
== END 2019-07-16 12:31 | disposition home or self-care (01) | DRG 918 ==
LOC: ED 19:08 → EDHOLD 21:00 → ICCU 21:16
PROVIDERS: Emergency Medicine; Internal Medicine; ADMIT Internal Medicine
DX: T43.211A Poisoning by selective serotonin and norepinephrine reuptake inhibitors, accidental (unintentional), initial encounter (principal); R65.10 Systemic inflammatory response syndrome (SIRS) of non-infectious origin without acute organ dysfunction; K92.1 Melena; R45.851 Suicidal ideations; F10.239 Alcohol dependence with withdrawal, unspecified; F10.229 Alcohol dependence with intoxication, unspecified; D75.89 Other specified diseases of blood and blood-forming organs; E87.8 Other disorders of electrolyte and fluid balance, not elsewhere classified; R74.0 Nonspecific elevation of levels of transaminase and lactic acid dehydrogenase [LDH]; F90.9 Attention-deficit hyperactivity disorder, unspecified type; F17.210 Nicotine dependence, cigarettes, uncomplicated; Z71.6 Tobacco abuse counseling; Z83.3 Family history of diabetes mellitus; Z82.49 Family history of ischemic heart disease and other diseases of the circulatory system; Z79.899 Other long term (current) drug therapy; Y92.89 Other specified places as the place of occurrence of the external cause

== ENCOUNTER 2019-07-20 23:14 | Inpatient (IN) | payer OTHER ==
[~2019-07-20] VITALS: Ht 185.4 cm; Wt 127.9 kg
[2019-07-20 23:30] VITALS: BP 155/112
[2019-07-20 23:48] LABS: BASO # 0.1 10*3/uL (0.0-0.1); BASO % 0.6 % (0.0-1.0); EOS # 0.2 10*3/uL (0.0-0.4); EOS % 1.5 % (1.0-4.0); HEMATOCRIT 55.8 % (42.0-52.0); LYMPH # 3.9 10*3/uL (1.3-4.4); LYMPH % 30.6 % (27.0-41.0); MEAN CELL VOLUME 94.1 fl (80.0-94.0); MEAN CORPUSCULAR HGB 32.4 pg (27.0-31.0); MEAN CORPUSCULAR HGB CONC 34.4 g/dl (33.0-37.0); MEAN PLATELET VOLUME 8.8 fl (9.6-12.3); MONO # 0.5 10*3/uL (0.1-1.0); MONO % 3.8 % (3.0-9.0); NEUT # 7.9 10*3/uL (2.3-7.9); NEUT % 63.2 % (47.0-73.0); PLATELET COUNT AUTOMATED 228 10*3/uL (130-400); RED BLOOD COUNT 5.93 10*6/uL (4.50-5.90); RED CELL DISTRI WIDTH 11.9 % (0-14.5); WHITE BLOOD COUNT 12.6 10*3/uL (4.8-10.8)
[2019-07-21] VITALS (8 sets, daily range): BP systolic 130–159; BP diastolic 56–102
[2019-07-21 00:03] LABS: ALBUMIN 3.8 gm/dl (3.1-4.5); ALKALINE PHOSPHATASE 103 U/L (45-117); BUN 12 mg/dl (7-24); CHLORIDE 104 mmol/L (98-107); CREATININE 1.28 mg/dL (0.70-1.30); POTASSIUM 3.4 mmol/L (3.5-5.1); SGOT/AST 45 IU/L (3-35); SGPT/ALT 49 U/L (12-78); SODIUM 142 mmol/L (136-145); TOTAL PROTEIN 8.3 gm/dL (6.4-8.2)
[2019-07-21 00:17] LABS: ACETAMINOPHEN (TYLENOL) < 5.0 ug/ml (10-30)
[2019-07-21 05:33] LABS: BUN 15 mg/dl (7-24); CHLORIDE 107 mmol/L (98-107); CREATININE 1.05 mg/dL (0.70-1.30); POTASSIUM 3.3 mmol/L (3.5-5.1); SODIUM 141 mmol/L (136-145)
[2019-07-21 06:17] LABS: BILIRUBIN NEGATIVE (NEGATIVE); BLOOD 2+ (NEGATIVE); CLARITY SL CLOUDY (CLEAR); COLOR YELLOW (YELLOW); GLUCOSE NEGATIVE (NEGATIVE); KETONE 2+ (NEGATIVE)
[2019-07-21 06:18] LABS: BACTERIA 2+; LEUKO ESTERASE NEGATIVE (NEGATIVE); MUCOUS 1+; NITRITE NEGATIVE (NEGATIVE); UROBILINOGEN < 0.2 E.U./dl (0.2-1.0)
[2019-07-21 06:21] LABS: URINE BARBITURATES < 200 (200ng/ml); URINE BENZODIAZEPINES > 200 (200ng/ml); URINE CANNABINOIDS (THC) < 50 (50ng/ml); URINE COCAINE < 300 (300ng/ml); URINE METHADONE < 300 (300ng/ml); URINE OPIATES < 300 (300ng/ml)
[2019-07-21 06:25] LABS: URINE AMPHETAMINES < 1000 (1000ng/ml)
[2019-07-21 06:26] LABS: URINE PHENCYCLIDINE < 25 (25ng/ml)
[2019-07-22] VITALS (7 sets, daily range): BP systolic 121–163; BP diastolic 78–91
[2019-07-22 06:07] LABS: HEP B CORE AB, IGM Negative (Negative); HEPATITIS B SURFACE AG Negative (Negative); HEPATITIS C VIRUS ANTIBODY <0.1 s/co (0.0-0.9)
[2019-07-23] VITALS: BP 128/78
[2019-07-23 06:11] LABS: BASO % 0.3 % (0.0-1.0); EOS # 0.3 10*3/uL (0.0-0.4); EOS % 4.6 % (1.0-4.0); HEMATOCRIT 44.9 % (42.0-52.0); LYMPH # 1.4 10*3/uL (1.3-4.4); LYMPH % 20.9 % (27.0-41.0); MEAN CELL VOLUME 95.9 fl (80.0-94.0); MEAN CORPUSCULAR HGB 32.7 pg (27.0-31.0); MEAN CORPUSCULAR HGB CONC 34.1 g/dl (33.0-37.0); MEAN PLATELET VOLUME 9.9 fl (9.6-12.3); MONO # 0.4 10*3/uL (0.1-1.0); MONO % 5.4 % (3.0-9.0); NEUT # 4.7 10*3/uL (2.3-7.9); NEUT % 68.4 % (47.0-73.0); PLATELET COUNT AUTOMATED 100 10*3/uL (130-400); RED BLOOD COUNT 4.68 10*6/uL (4.50-5.90); RED CELL DISTRI WIDTH 12.2 % (0-14.5); WHITE BLOOD COUNT 6.8 10*3/uL (4.8-10.8)
[2019-07-23 06:22] LABS: CREATININE 0.78 mg/dL (0.70-1.30)
[2019-07-23 08:00] VITALS: BP 98/62
== END 2019-07-23 10:05 | disposition home or self-care (01) | DRG 775 ==
LOC: ED 23:14 → ICCU 07-21 00:48 → EDHOLD 07-21 00:48 → ICCU 07-21 01:09 → 5E 07-22 10:22
PROVIDERS: Internal Medicine; Nurse Practitioner Family; Student in an Organized Health Care Education/Training Program; ADMIT Internal Medicine
DX: F10.129 Alcohol abuse with intoxication, unspecified (principal); G93.41 Metabolic encephalopathy; R65.11 Systemic inflammatory response syndrome (SIRS) of non-infectious origin with acute organ dysfunction; D75.89 Other specified diseases of blood and blood-forming organs; K76.0 Fatty (change of) liver, not elsewhere classified; R74.0 Nonspecific elevation of levels of transaminase and lactic acid dehydrogenase [LDH]; R45.851 Suicidal ideations; D75.1 Secondary polycythemia; E87.6 Hypokalemia; R73.9 Hyperglycemia, unspecified; E66.9 Obesity, unspecified; F90.9 Attention-deficit hyperactivity disorder, unspecified type; E55.9 Vitamin D deficiency, unspecified; E53.8 Deficiency of other specified B group vitamins; G47.00 Insomnia, unspecified; F17.210 Nicotine dependence, cigarettes, uncomplicated; Z82.49 Family history of ischemic heart disease and other diseases of the circulatory system; Z83.3 Family history of diabetes mellitus

== ENCOUNTER 2019-07-24 01:03 | Emergency (ER) | payer OTHER ==
[~2019-07-24] VITALS: Ht 182.8 cm; Wt 127.0 kg
== END 2019-07-24 04:46 | disposition home or self-care (01) ==
LOC: ED 01:03
DX: S01.01XA Laceration without foreign body of scalp, initial encounter (principal); K21.9 Gastro-esophageal reflux disease without esophagitis; R56.9 Unspecified convulsions; F17.200 Nicotine dependence, unspecified, uncomplicated; W19.XXXA Unspecified fall, initial encounter; Y93.89 Activity, other specified; Y92.59 Other trade areas as the place of occurrence of the external cause; Y99.8 Other external cause status

== ENCOUNTER 2019-08-15 | Inpatient (IN) | payer OTHER ==
[~2019-08-15] VITALS: Ht 182.9 cm; Wt 131.1 kg
[2019-08-15] VITALS (8 sets, daily range): BP systolic 130–177; BP diastolic 70–99
[2019-08-15 01:26] LABS: BASO % 0.5 % (0.0-1.0); EOS # 0.1 10*3/uL (0.0-0.4); EOS % 0.8 % (1.0-4.0); HEMATOCRIT 46.9 % (42.0-52.0); LYMPH % 15.6 % (27.0-41.0); MEAN CELL VOLUME 98.1 fl (80.0-94.0); MEAN CORPUSCULAR HGB 32.2 pg (27.0-31.0); MEAN CORPUSCULAR HGB CONC 32.8 g/dl (33.0-37.0); MEAN PLATELET VOLUME 8.8 fl (9.6-12.3); MONO # 0.5 10*3/uL (0.1-1.0); MONO % 7.5 % (3.0-9.0); NEUT # 4.6 10*3/uL (2.3-7.9); NEUT % 75.1 % (47.0-73.0); PLATELET COUNT AUTOMATED 171 10*3/uL (130-400); RED BLOOD COUNT 4.78 10*6/uL (4.50-5.90); RED CELL DISTRI WIDTH 13.9 % (0-14.5); WHITE BLOOD COUNT 6.1 10*3/uL (4.8-10.8)
[2019-08-15 01:45] LABS: ALKALINE PHOSPHATASE 99 U/L (45-117); BUN 11 mg/dl (7-24); CHLORIDE 109 mmol/L (98-107); CREATININE 0.95 mg/dL (0.70-1.30); POTASSIUM 4.1 mmol/L (3.5-5.1); SGOT/AST 68 IU/L (3-35); SGPT/ALT 75 U/L (12-78); SODIUM 142 mmol/L (136-145); TOTAL PROTEIN 7.9 gm/dL (6.4-8.2)
[2019-08-15 06:14] LABS: BASO % 0.6 % (0.0-1.0); EOS # 0.1 10*3/uL (0.0-0.4); HEMATOCRIT 44.5 % (42.0-52.0); LYMPH # 1.6 10*3/uL (1.3-4.4); LYMPH % 32.1 % (27.0-41.0); MEAN CELL VOLUME 98.7 fl (80.0-94.0); MEAN CORPUSCULAR HGB 32.6 pg (27.0-31.0); MEAN PLATELET VOLUME 8.8 fl (9.6-12.3); MONO # 0.5 10*3/uL (0.1-1.0); MONO % 9.8 % (3.0-9.0); NEUT # 2.8 10*3/uL (2.3-7.9); NEUT % 55.3 % (47.0-73.0); PLATELET COUNT AUTOMATED 152 10*3/uL (130-400); RED BLOOD COUNT 4.51 10*6/uL (4.50-5.90); WHITE BLOOD COUNT 5.1 10*3/uL (4.8-10.8)
[2019-08-15 06:32] LABS: ALBUMIN 3.8 gm/dl (3.1-4.5); BUN 10 mg/dl (7-24); CHLORIDE 106 mmol/L (98-107); CREATININE 0.89 mg/dL (0.70-1.30); POTASSIUM 3.9 mmol/L (3.5-5.1); SGOT/AST 58 IU/L (3-35); SGPT/ALT 70 U/L (12-78); SODIUM 141 mmol/L (136-145); TOTAL PROTEIN 7.7 gm/dL (6.4-8.2)
[2019-08-15 06:33] LABS: ALKALINE PHOSPHATASE 96 U/L (45-117)
[2019-08-16] VITALS: BP 143/96
[2019-08-16 04:00] VITALS: BP 180/92
[2019-08-16 06:19] LABS: BASO % 0.5 % (0.0-1.0); EOS # 0.2 10*3/uL (0.0-0.4); HEMATOCRIT 44.4 % (42.0-52.0); LYMPH # 1.2 10*3/uL (1.3-4.4); LYMPH % 20.1 % (27.0-41.0); MEAN CELL VOLUME 96.1 fl (80.0-94.0); MEAN CORPUSCULAR HGB 32.3 pg (27.0-31.0); MEAN CORPUSCULAR HGB CONC 33.6 g/dl (33.0-37.0); MEAN PLATELET VOLUME 9.7 fl (9.6-12.3); MONO # 0.7 10*3/uL (0.1-1.0); MONO % 12.2 % (3.0-9.0); NEUT # 3.7 10*3/uL (2.3-7.9); NEUT % 62.7 % (47.0-73.0); PLATELET COUNT AUTOMATED 140 10*3/uL (130-400); RED BLOOD COUNT 4.62 10*6/uL (4.50-5.90); RED CELL DISTRI WIDTH 13.5 % (0-14.5)
[2019-08-16 06:20] LABS: ALBUMIN 3.4 gm/dl (3.1-4.5); ALKALINE PHOSPHATASE 91 U/L (45-117); BUN 15 mg/dl (7-24); CHLORIDE 108 mmol/L (98-107); CREATININE 0.96 mg/dL (0.70-1.30); POTASSIUM 3.6 mmol/L (3.5-5.1); SGOT/AST 37 IU/L (3-35); SGPT/ALT 54 U/L (12-78); SODIUM 139 mmol/L (136-145)
[2019-08-16 08:00] VITALS: BP 150/100
[2019-08-16 12:00] VITALS: BP 138/96
[2019-08-16 16:00] VITALS: BP 154/100
[2019-08-16 20:00] VITALS: BP 144/96
[2019-08-17] VITALS: BP 138/90
[2019-08-17 05:36] LABS: ALBUMIN 3.4 gm/dl (3.1-4.5); ALKALINE PHOSPHATASE 88 U/L (45-117); BUN 15 mg/dl (7-24); CHLORIDE 109 mmol/L (98-107); CREATININE 0.93 mg/dL (0.70-1.30); POTASSIUM 3.8 mmol/L (3.5-5.1); SGOT/AST 48 IU/L (3-35); SGPT/ALT 66 U/L (12-78); SODIUM 138 mmol/L (136-145)
[2019-08-17 08:00] VITALS: BP 136/86
[2019-08-17] MEDS ORDERED: VITAMIN D350 MC2 PO (11:45)
[2019-08-17 12:00] VITALS: BP 148/86
== END 2019-08-17 15:00 | disposition home or self-care (01) | DRG 775 ==
LOC: ED → EDHOLD 04:33 → ICCU 04:33
PROVIDERS: Emergency Medicine; Internal Medicine; Student in an Organized Health Care Education/Training Program; ADMIT Internal Medicine
DX: F10.230 Alcohol dependence with withdrawal, uncomplicated (principal); R73.9 Hyperglycemia, unspecified; D75.89 Other specified diseases of blood and blood-forming organs; D72.810 Lymphocytopenia; E87.2 Acidosis; E83.51 Hypocalcemia; Y90.7 Blood alcohol level of 200-239 mg/100 ml; E53.8 Deficiency of other specified B group vitamins; F17.210 Nicotine dependence, cigarettes, uncomplicated; F90.9 Attention-deficit hyperactivity disorder, unspecified type; G47.00 Insomnia, unspecified; K76.0 Fatty (change of) liver, not elsewhere classified; E66.9 Obesity, unspecified; E87.8 Other disorders of electrolyte and fluid balance, not elsewhere classified; Z68.39 Body mass index [BMI] 39.0-39.9, adult; Z82.49 Family history of ischemic heart disease and other diseases of the circulatory system; Z83.3 Family history of diabetes mellitus; Z71.6 Tobacco abuse counseling

== ENCOUNTER 2019-09-10 13:34 | Inpatient (IN) | payer OTHER ==
[~2019-09-10] VITALS: Ht 182.9 cm; Wt 126.1 kg
[~2019-09-10 13:34] MED LIST changes: +VITAMIN D350 MC2 PO
[2019-09-10 13:40] VITALS: BP 169/104
[2019-09-10 14:11] LABS: BASO # 0.1 10*3/uL (0.0-0.1); EOS # 0.2 10*3/uL (0.0-0.4); EOS % 1.8 % (1.0-4.0); HEMATOCRIT 49.8 % (42.0-52.0); LYMPH # 2.1 10*3/uL (1.3-4.4); LYMPH % 25.8 % (27.0-41.0); MEAN CELL VOLUME 99.6 fl (80.0-94.0); MEAN CORPUSCULAR HGB 32.4 pg (27.0-31.0); MEAN CORPUSCULAR HGB CONC 32.5 g/dl (33.0-37.0); MEAN PLATELET VOLUME 9.3 fl (9.6-12.3); MONO # 0.8 10*3/uL (0.1-1.0); MONO % 9.1 % (3.0-9.0); NEUT # 5.1 10*3/uL (2.3-7.9); NEUT % 61.8 % (47.0-73.0); PLATELET COUNT AUTOMATED 133 10*3/uL (130-400); RED CELL DISTRI WIDTH 13.1 % (0-14.5); WHITE BLOOD COUNT 8.3 10*3/uL (4.8-10.8)
[2019-09-10 14:17] LABS: ACT PARTIAL THROMBO TIME 25.1 SECONDS (20.0-32.1)
[2019-09-10 14:23] LABS: ALBUMIN 4.3 gm/dl (3.1-4.5); ALKALINE PHOSPHATASE 141 U/L (45-117); BUN 8 mg/dl (7-24); CHLORIDE 100 mmol/L (98-107); CREATININE 1.38 mg/dL (0.70-1.30); POTASSIUM 3.9 mmol/L (3.5-5.1); SGOT/AST 564 IU/L (3-35); SGPT/ALT 418 U/L (12-78); SODIUM 137 mmol/L (136-145); TOTAL PROTEIN 8.8 gm/dL (6.4-8.2)
[2019-09-10 15:00] VITALS: BP 162/90
[2019-09-10 15:20] VITALS: BP 148/95
[2019-09-10 16:00] VITALS: BP 145/84
[2019-09-10 18:07] LABS: COLOR YELLOW (YELLOW)
[2019-09-10 18:08] LABS: BILIRUBIN NEGATIVE (NEGATIVE); BLOOD TRACE-INTACT (NEGATIVE); CLARITY SL CLOUDY (CLEAR); GLUCOSE NEGATIVE (NEGATIVE); KETONE 2+ (NEGATIVE); LEUKO ESTERASE NEGATIVE (NEGATIVE); NITRITE NEGATIVE (NEGATIVE); PH 7.5 (5.0-9.0); UROBILINOGEN 0.2 E.U./dl (0.2-1.0)
[2019-09-10 18:13] LABS: BACTERIA 1+; HYALINE CAST 0-2; MUCOUS TRACE
[2019-09-10 18:16] LABS: URINE AMPHETAMINES < 1000 (1000ng/ml); URINE BARBITURATES > 200 (200ng/ml); URINE BENZODIAZEPINES < 200 (200ng/ml); URINE CANNABINOIDS (THC) < 50 (50ng/ml); URINE COCAINE < 300 (300ng/ml); URINE METHADONE < 300 (300ng/ml); URINE OPIATES < 300 (300ng/ml)
[2019-09-10 18:17] LABS: URINE PHENCYCLIDINE < 25 (25ng/ml)
[2019-09-10 20:00] VITALS: BP 135/79
[2019-09-11] VITALS: BP 153/98
[2019-09-11 04:00] VITALS: BP 127/76
[2019-09-11 05:30] LABS: ALBUMIN 3.2 gm/dl (3.1-4.5); BUN 9 mg/dl (7-24); CHLORIDE 107 mmol/L (98-107); CREATININE 0.95 mg/dL (0.70-1.30); POTASSIUM 3.5 mmol/L (3.5-5.1); SGOT/AST 302 IU/L (3-35); SGPT/ALT 285 U/L (12-78); SODIUM 140 mmol/L (136-145); TOTAL PROTEIN 6.7 gm/dL (6.4-8.2)
[2019-09-11 05:32] LABS: ALKALINE PHOSPHATASE 92 U/L (45-117)
[2019-09-11 06:15] LABS: BASO % 0.5 % (0.0-1.0); EOS # 0.2 10*3/uL (0.0-0.4); EOS % 4.3 % (1.0-4.0); HEMATOCRIT 44.7 % (42.0-52.0); LYMPH # 0.8 10*3/uL (1.3-4.4); LYMPH % 17.6 % (27.0-41.0); MEAN CELL VOLUME 97.8 fl (80.0-94.0); MEAN CORPUSCULAR HGB 32.4 pg (27.0-31.0); MEAN CORPUSCULAR HGB CONC 33.1 g/dl (33.0-37.0); MEAN PLATELET VOLUME 10.4 fl (9.6-12.3); MONO # 0.5 10*3/uL (0.1-1.0); MONO % 10.2 % (3.0-9.0); NEUT % 66.7 % (47.0-73.0); RED BLOOD COUNT 4.57 10*6/uL (4.50-5.90); RED CELL DISTRI WIDTH 13.2 % (0-14.5); WHITE BLOOD COUNT 4.4 10*3/uL (4.8-10.8)
[2019-09-11 06:47] LABS: PLATELET COUNT AUTOMATED 80 10*3/uL (130-400)
[2019-09-11 08:00] VITALS: BP 119/79
[2019-09-11 12:00] VITALS: BP 157/98
[2019-09-11 16:00] VITALS: BP 153/111; BP 154/80
[2019-09-11 20:00] VITALS: BP 141/97
[2019-09-12 06:16] LABS: BASO % 0.5 % (0.0-1.0); EOS # 0.2 10*3/uL (0.0-0.4); EOS % 4.1 % (1.0-4.0); HEMATOCRIT 40.7 % (42.0-52.0); LYMPH # 0.9 10*3/uL (1.3-4.4); LYMPH % 20.5 % (27.0-41.0); MEAN CELL VOLUME 97.8 fl (80.0-94.0); MEAN CORPUSCULAR HGB 32.7 pg (27.0-31.0); MEAN CORPUSCULAR HGB CONC 33.4 g/dl (33.0-37.0); MEAN PLATELET VOLUME 10.8 fl (9.6-12.3); MONO # 0.4 10*3/uL (0.1-1.0); MONO % 9.2 % (3.0-9.0); NEUT # 2.8 10*3/uL (2.3-7.9); NEUT % 65.2 % (47.0-73.0); PLATELET COUNT AUTOMATED 68 10*3/uL (130-400); RED BLOOD COUNT 4.16 10*6/uL (4.50-5.90); RED CELL DISTRI WIDTH 13.1 % (0-14.5); WHITE BLOOD COUNT 4.4 10*3/uL (4.8-10.8)
[2019-09-12 06:42] LABS: ALBUMIN 3.4 gm/dl (3.1-4.5); CHLORIDE 106 mmol/L (98-107); CREATININE 0.85 mg/dL (0.70-1.30); POTASSIUM 3.5 mmol/L (3.5-5.1); SGOT/AST 218 IU/L (3-35); SGPT/ALT 252 U/L (12-78); SODIUM 138 mmol/L (136-145)
[2019-09-12 06:44] LABS: ALKALINE PHOSPHATASE 85 U/L (45-117); BUN 9 mg/dl (7-24); TOTAL PROTEIN 6.3 gm/dL (6.4-8.2)
[2019-09-12 07:48] VITALS: BP 142/80
[2019-09-12] MEDS ORDERED: VITAMIN D250 MCG PO (09:24)
[2019-09-12] MEDS ORDERED: THIAMINE HCL100 MG PO (09:24)
[2019-09-12 12:00] VITALS: BP 157/105
== END 2019-09-12 12:32 | disposition home or self-care (01) | DRG 280 ==
LOC: ED 13:34 → EDHOLD 15:00 → ICCU 15:00 → 5E 15:00 → ICCU 15:13 → 5E 09-11 15:07
PROVIDERS: Emergency Medicine; Internal Medicine; Student in an Organized Health Care Education/Training Program; ADMIT Emergency Medicine
DX: K70.10 Alcoholic hepatitis without ascites (principal); N17.0 Acute kidney failure with tubular necrosis; K92.0 Hematemesis; F10.231 Alcohol dependence with withdrawal delirium; F10.232 Alcohol dependence with withdrawal with perceptual disturbance; F10.229 Alcohol dependence with intoxication, unspecified; R74.0 Nonspecific elevation of levels of transaminase and lactic acid dehydrogenase [LDH]; R73.9 Hyperglycemia, unspecified; E66.9 Obesity, unspecified; R56.9 Unspecified convulsions; F90.9 Attention-deficit hyperactivity disorder, unspecified type; E87.2 Acidosis; D69.6 Thrombocytopenia, unspecified; G47.00 Insomnia, unspecified; E55.9 Vitamin D deficiency, unspecified; E53.8 Deficiency of other specified B group vitamins; D72.810 Lymphocytopenia; R65.10 Systemic inflammatory response syndrome (SIRS) of non-infectious origin without acute organ dysfunction; D75.89 Other specified diseases of blood and blood-forming organs; F17.210 Nicotine dependence, cigarettes, uncomplicated; Z83.3 Family history of diabetes mellitus; Z82.49 Family history of ischemic heart disease and other diseases of the circulatory system; Z68.37 Body mass index [BMI] 37.0-37.9, adult

== ENCOUNTER 2019-09-16 08:01 | Emergency (ER) | payer MEDICAID ==
[~2019-09-16] VITALS: Ht 182.8 cm; Wt 113.4 kg
[~2019-09-16 08:01] MED LIST changes: +THIAMINE HCL100 MG PO; +VITAMIN D250 MCG PO
[2019-09-16 08:23] LABS: BASO # 0.1 10*3/uL (0.0-0.1); BASO % 1.2 % (0.0-1.0); EOS # 0.2 10*3/uL (0.0-0.4); EOS % 3.6 % (1.0-4.0); HEMATOCRIT 48.5 % (42.0-52.0); LYMPH # 3.3 10*3/uL (1.3-4.4); MEAN CORPUSCULAR HGB 32.4 pg (27.0-31.0); MEAN CORPUSCULAR HGB CONC 33.4 g/dl (33.0-37.0); MEAN PLATELET VOLUME 8.7 fl (9.6-12.3); MONO % 15.5 % (3.0-9.0); NEUT % 30.3 % (47.0-73.0); PLATELET COUNT AUTOMATED 176 10*3/uL (130-400); RED CELL DISTRI WIDTH 13.2 % (0-14.5); WHITE BLOOD COUNT 6.7 10*3/uL (4.8-10.8)
[2019-09-16 08:38] LABS: ALBUMIN 3.9 gm/dl (3.1-4.5); ALKALINE PHOSPHATASE 124 U/L (45-117); BUN 7 mg/dl (7-24); CHLORIDE 112 mmol/L (98-107); CREATININE 1.09 mg/dL (0.70-1.30); POTASSIUM 3.8 mmol/L (3.5-5.1); SGOT/AST 495 IU/L (3-35); SGPT/ALT 492 U/L (12-78); SODIUM 145 mmol/L (136-145); TOTAL PROTEIN 8.1 gm/dL (6.4-8.2)
== END 2019-09-16 12:19 | disposition home or self-care (01) ==
LOC: ED 08:01
PROVIDERS: Emergency Medicine
DX: F10.129 Alcohol abuse with intoxication, unspecified (principal); K21.9 Gastro-esophageal reflux disease without esophagitis; R56.9 Unspecified convulsions; Z79.899 Other long term (current) drug therapy; Y90.8 Blood alcohol level of 240 mg/100 ml or more

== ENCOUNTER 2019-09-18 12:04 | Inpatient (IN) | payer OTHER ==
[~2019-09-18] VITALS: Ht 185.4 cm; Wt 125.5 kg
[2019-09-18 12:24] LABS: BASO # 0.1 10*3/uL (0.0-0.1); BASO % 1.4 % (0.0-1.0); EOS # 0.1 10*3/uL (0.0-0.4); EOS % 0.9 % (1.0-4.0); HEMATOCRIT 48.5 % (42.0-52.0); LYMPH # 2.1 10*3/uL (1.3-4.4); MEAN CELL VOLUME 95.7 fl (80.0-94.0); MEAN CORPUSCULAR HGB 32.5 pg (27.0-31.0); MEAN PLATELET VOLUME 8.8 fl (9.6-12.3); MONO # 0.6 10*3/uL (0.1-1.0); MONO % 10.7 % (3.0-9.0); NEUT # 2.8 10*3/uL (2.3-7.9); NEUT % 49.6 % (47.0-73.0); PLATELET COUNT AUTOMATED 214 10*3/uL (130-400); RED BLOOD COUNT 5.07 10*6/uL (4.50-5.90); RED CELL DISTRI WIDTH 12.8 % (0-14.5); WHITE BLOOD COUNT 5.6 10*3/uL (4.8-10.8)
[2019-09-18 12:37] LABS: ACT PARTIAL THROMBO TIME 25.9 SECONDS (20.0-32.1)
[2019-09-18 12:41] LABS: ALKALINE PHOSPHATASE 103 U/L (45-117); BUN 7 mg/dl (7-24); CHLORIDE 106 mmol/L (98-107); CREATININE 0.94 mg/dL (0.70-1.30); LIPASE 274 U/L (73-393); POTASSIUM 3.7 mmol/L (3.5-5.1); SGOT/AST 228 IU/L (3-35); SGPT/ALT 310 U/L (12-78); SODIUM 141 mmol/L (136-145); TOTAL PROTEIN 8.1 gm/dL (6.4-8.2)
[2019-09-18 13:09] LABS: NT-proBNP < 5.00 pg/mL (0-125); TROPONIN I < 0.015 ng/ml (<0.045)
[2019-09-18 15:50] VITALS: BP 138/89
[2019-09-18 18:16] LABS: BILIRUBIN NEGATIVE (NEGATIVE); BLOOD 2+ (NEGATIVE); CLARITY CLEAR (CLEAR); COLOR YELLOW (YELLOW); GLUCOSE NEGATIVE (NEGATIVE); KETONE 2+ (NEGATIVE); LEUKO ESTERASE TRACE (NEGATIVE); NITRITE NEGATIVE (NEGATIVE); PH 6.5 (5.0-9.0)
[2019-09-18 18:19] LABS: BACTERIA 1+; MUCOUS 1+
[2019-09-18 20:00] VITALS: BP 146/87
[2019-09-19] VITALS: BP 129/68
[2019-09-19 05:33] LABS: ALBUMIN 3.6 gm/dl (3.1-4.5); ALKALINE PHOSPHATASE 90 U/L (45-117); BUN 6 mg/dl (7-24); CHLORIDE 103 mmol/L (98-107); CREATININE 0.72 mg/dL (0.70-1.30); POTASSIUM 3.6 mmol/L (3.5-5.1); SGOT/AST 178 IU/L (3-35); SGPT/ALT 239 U/L (12-78); SODIUM 137 mmol/L (136-145); TOTAL PROTEIN 7.2 gm/dL (6.4-8.2)
[2019-09-19 06:29] LABS: BASO % 1.4 % (0.0-1.0); EOS # 0.1 10*3/uL (0.0-0.4); EOS % 2.4 % (1.0-4.0); LYMPH % 32.4 % (27.0-41.0); MEAN CELL VOLUME 96.1 fl (80.0-94.0); MEAN CORPUSCULAR HGB 32.3 pg (27.0-31.0); MEAN CORPUSCULAR HGB CONC 33.6 g/dl (33.0-37.0); MEAN PLATELET VOLUME 10.1 fl (9.6-12.3); MONO # 0.5 10*3/uL (0.1-1.0); MONO % 16.7 % (3.0-9.0); NEUT # 1.4 10*3/uL (2.3-7.9); NEUT % 46.4 % (47.0-73.0); RED BLOOD COUNT 4.37 10*6/uL (4.50-5.90); RED CELL DISTRI WIDTH 12.6 % (0-14.5); WHITE BLOOD COUNT 2.9 10*3/uL (4.8-10.8)
[2019-09-19 06:30] LABS: PLATELET COUNT AUTOMATED 131 10*3/uL (130-400)
[2019-09-19 12:40] VITALS: BP 156/98
[2019-09-19 20:00] VITALS: BP 154/110
[2019-09-20] VITALS: BP 140/100
[2019-09-20] MEDS ORDERED: PRINIVIL10 MG PO (09:15)
== END 2019-09-20 10:17 | disposition left against medical advice (07) | DRG 770 ==
LOC: ED 12:04 → EDHOLD 15:26 → 5E 15:26
PROVIDERS: Emergency Medicine; Registered Nurse; ADMIT Student in an Organized Health Care Education/Training Program
DX: F10.121 Alcohol abuse with intoxication delirium (principal); R74.0 Nonspecific elevation of levels of transaminase and lactic acid dehydrogenase [LDH]; R19.7 Diarrhea, unspecified; E87.2 Acidosis; E66.9 Obesity, unspecified; R65.11 Systemic inflammatory response syndrome (SIRS) of non-infectious origin with acute organ dysfunction; I10 Essential (primary) hypertension; Z53.29 Procedure and treatment not carried out because of patient's decision for other reasons; Y90.8 Blood alcohol level of 240 mg/100 ml or more; E83.42 Hypomagnesemia; E83.39 Other disorders of phosphorus metabolism; E44.1 Mild protein-calorie malnutrition; F17.210 Nicotine dependence, cigarettes, uncomplicated; F90.9 Attention-deficit hyperactivity disorder, unspecified type; Z82.49 Family history of ischemic heart disease and other diseases of the circulatory system; Z83.3 Family history of diabetes mellitus; Z84.89 Family history of other specified conditions; Z71.6 Tobacco abuse counseling; Z79.899 Other long term (current) drug therapy; Z71.41 Alcohol abuse counseling and surveillance of alcoholic; Z68.36 Body mass index [BMI] 36.0-36.9, adult

== ENCOUNTER 2019-09-27 22:23 | Inpatient (IN) | payer OTHER ==
[~2019-09-27] VITALS: Ht 187.9 cm; Wt 123.4 kg
[~2019-09-27 22:23] MED LIST changes: +PRINIVIL10 MG PO
--- NOTE | 2019-09-27 22:41 | NUR ---
PT MOTHER IS IN ROOM WITH PT AT THIS TIME. PT VISIBLE FROM NURSE'S STATION. WILL CONTINUE TO MONITOR.
[2019-09-27 22:47] VITALS: BP 182/108
[2019-09-27 23:03] LABS: BASO # 0.1 10*3/uL (0.0-0.1); BASO % 1.1 % (0.0-1.0); EOS % 0.5 % (1.0-4.0); HEMATOCRIT 46.5 % (42.0-52.0); LYMPH # 1.9 10*3/uL (1.3-4.4); LYMPH % 35.4 % (27.0-41.0); MEAN CELL VOLUME 96.7 fl (80.0-94.0); MEAN CORPUSCULAR HGB 32.6 pg (27.0-31.0); MEAN CORPUSCULAR HGB CONC 33.8 g/dl (33.0-37.0); MEAN PLATELET VOLUME 8.9 fl (9.6-12.3); MONO # 0.5 10*3/uL (0.1-1.0); MONO % 9.1 % (3.0-9.0); NEUT # 2.9 10*3/uL (2.3-7.9); NEUT % 53.4 % (47.0-73.0); PLATELET COUNT AUTOMATED 179 10*3/uL (130-400); RED BLOOD COUNT 4.81 10*6/uL (4.50-5.90); RED CELL DISTRI WIDTH 12.7 % (0-14.5); WHITE BLOOD COUNT 5.5 10*3/uL (4.8-10.8)
[2019-09-27 23:28] LABS: ALBUMIN 3.7 gm/dl (3.1-4.5); ALKALINE PHOSPHATASE 84 U/L (45-117); BUN 9 mg/dl (7-24); CHLORIDE 105 mmol/L (98-107); CREATININE 0.97 mg/dL (0.70-1.30); POTASSIUM 3.4 mmol/L (3.5-5.1); SGOT/AST 112 IU/L (3-35); SGPT/ALT 187 U/L (12-78); SODIUM 142 mmol/L (136-145); TOTAL PROTEIN 7.5 gm/dL (6.4-8.2)
[2019-09-27 23:32] LABS: TROPONIN I < 0.015 ng/ml (<0.045)
[2019-09-27 23:42] VITALS: BP 145/98
[2019-09-28] VITALS (7 sets, daily range): BP systolic 115–154; BP diastolic 75–101
--- NOTE | 2019-09-28 01:54 | NUR ---
A 28, admitted to [facility], under the services of STACI Enriquez DO with a diagnosis of ETOH INTOXICATION. Chief complaint is INTOXICATED. Patient arrived via bed from ER. Monitor applied. Initial assessment completed. Vital signs taken and recorded. STACI ENRIQUEZ DO notified of admission to the unit. Orders received. See assessment for past medical history, medications and allergies. Patient and/or family oriented to unit. [facility]U visitation policy reviewed. Clothing/patient valuable form completed. JULIANNE LAWRENCE
--- NOTE | 2019-09-28 02:19 | NUR ---
Patient requested something to help him sleep, patient showing slight agitation. Ativan given, will monitor and reassess.
--- NOTE | 2019-09-28 02:40 | NUR ---
Patient resting, no signs of distress, vital signs stable. Ativan effective.
--- NOTE | 2019-09-28 05:34 | NUR ---
Patient soaked the bed with urine, refusing to take off wet underware and putting on a gown. Bed changed.
[2019-09-28 06:21] LABS: BASO % 1.1 % (0.0-1.0); EOS # 0.1 10*3/uL (0.0-0.4); EOS % 1.4 % (1.0-4.0); HEMATOCRIT 45.3 % (42.0-52.0); LYMPH # 1.6 10*3/uL (1.3-4.4); LYMPH % 43.6 % (27.0-41.0); MEAN CELL VOLUME 98.1 fl (80.0-94.0); MEAN CORPUSCULAR HGB 32.9 pg (27.0-31.0); MEAN CORPUSCULAR HGB CONC 33.6 g/dl (33.0-37.0); MEAN PLATELET VOLUME 8.8 fl (9.6-12.3); MONO # 0.3 10*3/uL (0.1-1.0); MONO % 8.1 % (3.0-9.0); NEUT # 1.6 10*3/uL (2.3-7.9); NEUT % 45.2 % (47.0-73.0); PLATELET COUNT AUTOMATED 144 10*3/uL (130-400); RED BLOOD COUNT 4.62 10*6/uL (4.50-5.90); RED CELL DISTRI WIDTH 12.9 % (0-14.5); WHITE BLOOD COUNT 3.6 10*3/uL (4.8-10.8)
[2019-09-28 06:54] LABS: ALBUMIN 3.6 gm/dl (3.1-4.5); BUN 7 mg/dl (7-24); CHLORIDE 107 mmol/L (98-107); CREATININE 0.82 mg/dL (0.70-1.30); POTASSIUM 3.8 mmol/L (3.5-5.1); SGOT/AST 105 IU/L (3-35); SGPT/ALT 167 U/L (12-78); SODIUM 142 mmol/L (136-145)
[2019-09-28 07:03] LABS: ALKALINE PHOSPHATASE 80 U/L (45-117); TOTAL PROTEIN 7.1 gm/dL (6.4-8.2)
--- NOTE | 2019-09-28 08:34 | NUR ---
asleep. Not awakened. VSS. head covered by sheet. Repositions self. IV infusing Dr. Lovett in. . Transport here for US Liver. To be notified when appropriate to transport.
--- NOTE | 2019-09-28 09:14 | NUR ---
Awake, to US for liver studies. Returned to room , stable. Dr. Sheldon in to evaulate. Talked at length to pt. about alcholism and continued decline of health if he continues in the path of alcholism. Pt. agreeable and pleasent during evaulation. .
--- NOTE | 2019-09-28 10:03 | NUR ---
Requested IV ativan, stats is feeling a little rough. Given and taking breakfast well.
--- NOTE | 2019-09-28 13:26 | NUR ---
Medicated for symptoms of DT, Diaphoretic and tremulous , Tachycardia w/ rate 104-120.
--- NOTE | 2019-09-28 18:30 | NUR ---
rEQUESTED AND WAS GIVEN iv ATIVAN, For s/s of DT's as noted by tachycardia, and tremors.
--- NOTE | 2019-09-28 19:04 | NUR ---
CHART CHECK COMPLETE. BROACHING MACHINE SET UP OPERATOR STRIP OBTAINED AND PLACED ON CHART.
--- NOTE | 2019-09-28 19:36 | NUR ---
PT AWAKE, VERY TREMULOUS. HAD JUST VOIDED IN URINAL. HE IS COOPERATIVE WITH MOST OF ASSESSMENT BUT TAKES TAX SERVICES INTERN OFF I ATTEMPT TO PUT IT BACK ON, SAYING "I DON'T WANT THOSE ON ME. CAN I HAVE SOMETHING TO HELP ME SLEEP?" INFORMED HIM THAT HE HAD JUST HAD IV ATIVAN AT 1830 AND THAT I JUST GAVE HIM PO ATIVAN AND VISTARIL. HE KNOWS WHERE HE IS AT, BUT ADMITS TO HALLUCINATING BY SAYING "I SEE LIGHT FIGURES AROUND HERE." WILL NOTIFY
--- NOTE | 2019-09-28 19:45 | NUR ---
DR ARMSTRONG NOTIFIED OF PT DT'S, REFUSAL TO WEAR UTILITY LOCATE TECHNICIAN, HALLUCINATIONS, AND REQUEST FOR "SOMETHING TO SLEEP"...I ALSO REVIEWED MEDICATIONS GIVEN TO HIM WITH TIMES OF ADMINISTRATION. PT REMAINS IN VIEW OF ICU STAFF AT ALL TIMES. BED EXIT ALARM ON. CALL LIGHT AND BELONGINGS IN REACH.
--- NOTE | 2019-09-28 20:03 | NUR ---
PO PRN MEDICATIONS NOT EFFECTIVE. PT LEANING ON HIS RT SIDE BUT VISIBLY TREMULOUS. ONE TIME IV ATIVAN ADMINSTERED. PT PULLING AWAY AND PULLING SHEET UP I ATTEMPT TO REAPPLY DRILLING RIG OPERATOR. SHIFT DIRECTOR WAS NOTIFIED OF PT IN ACTIVE DT'S AND NEED TO OBTAIN MORE MEDICATION FROM PHYSICIAN. PT REMAINS IN MY LINE OF SIGHT.
--- NOTE | 2019-09-28 20:21 | NUR ---
IV ATIVAN NOT YET EFFECTIVE...PT IS WIDE AWAKE,RESTLESS EVIDENCED BY MOVING ABOUT IN BED AND FUSSING WITH HIS CLOTHING AND TV.
--- NOTE | 2019-09-28 20:51 | NUR ---
PT SITTING IN HIGH SHIPMAN'S POSITION, EATING MORE FROM DINNER TRAY AND APPEARS RESTLESS. C/O BEING ACHY AND CRAMPY WELL. MEDICATED WITH NORCO AND ROBAXIN FOR THE ABOVE COMPLAINTS.
--- NOTE | 2019-09-28 21:20 | NUR ---
PT APPEARS TO BE MORE COMFORTABLE HE LAYS ON HIS LT SIDE WITH BED FLAT. WILL CONTINUE TO MONITOR CLOSELY.
--- NOTE | 2019-09-28 21:24 | NUR ---
DR PATTI PIEDRA. UPDATED. PT IS NOW PRONE AND APPEARS TO BE STARTING TO RELAX.
--- NOTE | 2019-09-28 21:37 | NUR ---
PT LIGHTLY DOZING. PLACED BACK ON SCHOOL OCCUPATIONAL THERAPIST AND HR IS MOSTLY 90'S AT THIS TIME.
--- NOTE | 2019-09-28 21:48 | NUR ---
PT WOKE UP, VOIDED, AND PULLED HIMSELF OFF OF MONITOR AGAIN. CLOSE OBSERVATION CONTINUES.
--- NOTE | 2019-09-28 22:14 | NUR ---
MEDICATED WITH PRN IV ATIVAN ORDERED PT STATES "I'M FEELING REALLY ROUGH. I CAN'T GO TO SLEEP."
--- NOTE | 2019-09-28 22:32 | NUR ---
PT STILL AWAKE, BUT MOVING AROUND LESS. IV ATIVAN MILDLY EFFECTIVE.
[2019-09-29] VITALS (8 sets, daily range): BP systolic 136–178; BP diastolic 88–120
--- NOTE | 2019-09-29 00:13 | NUR ---
BENTYL ALONG WITH ROUTINE PO ATIVAN AT 2308 APPEARS TO BE EFFECTIVE....PT DOZING WITH RELAXED BODY WHILE LAYING IN PRONE POSITION.
--- NOTE | 2019-09-29 02:35 | NUR ---
PT SLEEPING WITH EVEN, UNLABORED RESPIRATIONS.
--- NOTE | 2019-09-29 02:50 | NUR ---
PT AWAKENS FROM SLEEP. IS PLEASANT, BUT TREMULOUS AND REQUESTING MEDICATIONS FOR "SHAKING AND ANXIOUSNESS". MEDICATED WITH IV ATIVAN AND VISTARIL ORDERED. VS AND ASSESSMENT DONE AT THIS TIME. PT CONTINUES TO REFUSE SAPPHIRE STYLUS GRINDER.
--- NOTE | 2019-09-29 03:15 | NUR ---
PT LAYING ON HIS LT SIDE. DOZING AT INTERVALS. BODY APPEARS MORE RELAXED. PRN MEDICATIONS WERE MODERATELY EFFECTIVE.
--- NOTE | 2019-09-29 04:39 | NUR ---
PT IN DEEP SLEEP, AWOKE FOR LAB DRAW, BECOMES AGITATED & REFUSED. HE RETURNS TO SLEEP. WILL TRY AGAIN LATER THIS AM.
--- NOTE | 2019-09-29 06:14 | NUR ---
PT WAS GIVEN BENTYL AT 0530 WITH HIS ROUTINE PO ATIVAN. HE ASKED WHEN IV ATIVAN WAS DUE...THIS WAS RELAYED TO HIM. PRN MEDICATIONS WERE EFFECTIVE. HE IS LAYING ON HIS RT SIDE AND SLEEPING WITH EVEN, UNLABORED RESPIRATIONS. HIS BED WAS CHECKED AND IS DRY....HE HAS VOIDED IN HIS URINAL 4 TIMES DURING MY 12 HR SHIFT.
--- NOTE | 2019-09-29 06:51 | NUR ---
Shift chart check completed.
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
--- NOTE | 2019-09-29 08:30 | NUR ---
PATIENT ON SIDE SLEEPING/EYES CLOSED. RESP EASY.. Patient resting. Responding to scheduled medications.
--- NOTE | 2019-09-29 09:00 | NUR ---
Yarn Spinner in to talk to patient. Patient states lives at home with his grandmother. There are 4 steps in the home. Physician: Leonard Iqbal [facility]: [facility] Home health services: none Patient's level of ADLs: INDEPENDENT Patient has working utilities: yes DME: none Follow-up physician's appointment after d/c: will be made by the hospitalist nurse director upon discharge Does patient want to access PORTAL?: no Discharge plan discussed with patient. He lives at home with his grandmother. He is independent in his ADLs and ambulation. Discussed home health care services and he declines. Yarn Spinner will continue to follow for any discharge planning needs. When medically stable he will be discharged to home. He states his grandmother will provide transportation on discharge. GUILLE RAMOS
--- NOTE | 2019-09-29 09:14 | NUR ---
PATIENT STILL SLEEPING
--- NOTE | 2019-09-29 09:56 | NUR ---
DR TESFAYE HERE AND SPOKE WITH THE PATIENT WHO AROUSED EASILY. PATIENT BACK TO SLEEP/EYES CLOSED AFTER DR TESFAYE LEFT.
--- NOTE | 2019-09-29 10:34 | NUR ---
Patient turned over and called to nurse asking if there was anything else he could have. RN got Vistaril & Amariaxin and patient took them but asked where the IV stuff was..RN informed him that it was too early and he said OK and turned over & closed his eyes. Nicotine Patch placed on left shoulder.
--- NOTE | 2019-09-29 10:58 | NUR ---
SLEEPING AFTER MEDICATED WITH VISTARIL & ROBAXIN..
--- NOTE | 2019-09-29 11:46 | NUR ---
PRN IV ZOFRAN AND ROUTINE PO ATIVAN GIVEN..PATIENT AGAIN ASKED IF HE COULD HAVE IV ATIVAN - TOLD TOO SOON.
--- NOTE | 2019-09-29 12:34 | NUR ---
SLEEPING SINCE MEDICATED
--- NOTE | 2019-09-29 16:23 | NUR ---
RESIDENT UPDATED ON ELEVATED BP PT ADMITS THAT HE HAS NOT BEEN TAKING HIS BP MEDS
--- NOTE | 2019-09-29 16:59 | NUR ---
RESIDENT AWARE OF BP
--- NOTE | 2019-09-29 19:43 | NUR ---
Patient displaying withdrawal symptoms, including: irritability, anxiousness, restlessness and agitation. Patient scores a 5 on the withdrawal scale. Scheduled/PRN medications provided, doctor notified of patient's agitation and AMA potential. Will continue to monitor medication effectiveness. ativan, bentyl, robaxin, and vistaril.
--- NOTE | 2019-09-29 20:45 | NUR ---
Patient calm, still showing active tremors, patient not able to sleep. Ativan not effective.
--- NOTE | 2019-09-29 23:30 | NUR ---
Patient requesting something to help him sleep. Patient also has noticable tremors. Ativan given, will monitor.
[2019-09-30] VITALS: BP 148/98
--- NOTE | 2019-09-30 01:42 | NUR ---
Patient resting with no signs of distress. Last dose of ativan effective.
[2019-09-30 04:00] VITALS: BP 148/100
--- NOTE | 2019-09-30 04:32 | NUR ---
Patient awoke after sleeping about 5hrs, and asked for prn meds. Robaxin, vistaril, bentyl, and ativan was given to help with withdrawl symptoms. Patient stated the meds are really helping him. Will monitor and reassess.
[2019-09-30 05:54] LABS: ALBUMIN 3.3 gm/dl (3.1-4.5); ALKALINE PHOSPHATASE 81 U/L (45-117); BUN 12 mg/dl (7-24); CHLORIDE 103 mmol/L (98-107); POTASSIUM 3.8 mmol/L (3.5-5.1); SGOT/AST 125 IU/L (3-35); SGPT/ALT 149 U/L (12-78); SODIUM 137 mmol/L (136-145)
--- NOTE | 2019-09-30 06:00 | NUR ---
Prn meds effective.
[2019-09-30 06:05] LABS: BASO % 0.7 % (0.0-1.0); EOS # 0.2 10*3/uL (0.0-0.4); EOS % 4.1 % (1.0-4.0); LYMPH # 1.1 10*3/uL (1.3-4.4); LYMPH % 24.7 % (27.0-41.0); MEAN CELL VOLUME 97.4 fl (80.0-94.0); MEAN CORPUSCULAR HGB CONC 34.9 g/dl (33.0-37.0); MEAN PLATELET VOLUME 10.6 fl (9.6-12.3); MONO # 0.5 10*3/uL (0.1-1.0); MONO % 10.2 % (3.0-9.0); NEUT # 2.7 10*3/uL (2.3-7.9); NEUT % 59.8 % (47.0-73.0); RED BLOOD COUNT 4.21 10*6/uL (4.50-5.90); RED CELL DISTRI WIDTH 12.8 % (0-14.5); WHITE BLOOD COUNT 4.4 10*3/uL (4.8-10.8)
[2019-09-30 06:08] LABS: PLATELET COUNT AUTOMATED 83 10*3/uL (130-400)
[2019-09-30 06:29] LABS: ATYPICAL LYMPHS 1 % (0-0); TOTAL CELLS COUNTED 100 #CELLS
[2019-09-30 06:30] LABS: PLATELET SUFFICIENCY LOW (NORMAL)
[2019-09-30 08:00] VITALS: BP 129/90
--- NOTE | 2019-09-30 08:34 | NUR ---
Awake and oriented this AM, pleasent , states may go home today.
--- NOTE | 2019-09-30 10:12 | NUR ---
[facility] rec[facility].
[2019-09-30] MEDS ORDERED: VITAMIN D3125 MC1 PO (10:37)
--- NOTE | 2019-09-30 11:27 | NUR ---
PT. REMOVED iv PER SELF. 2X2 APPLIED TO SITE. dISCHARGE INSTRUCTION WERE GIVEN. pt. voiced understanding . AA was strongly encouraged. Lock box items were retrieved and returned to pt. Transported to main lobby via w/c. Ativan 1 mg po was given 1 hour before departure and was effective for smooth transition to discharge.
== END 2019-09-30 11:27 | disposition home or self-care (01) | DRG 775 ==
LOC: ED 22:23 → ICCU 09-28 00:53 → EDHOLD 09-28 00:53 → ICCU 09-28 01:11
PROVIDERS: Emergency Medicine; Family Medicine; Student in an Organized Health Care Education/Training Program; ADMIT Internal Medicine
DX: F10.239 Alcohol dependence with withdrawal, unspecified (principal); R56.9 Unspecified convulsions; E87.2 Acidosis; E87.6 Hypokalemia; E83.51 Hypocalcemia; D75.89 Other specified diseases of blood and blood-forming organs; F90.9 Attention-deficit hyperactivity disorder, unspecified type; K70.10 Alcoholic hepatitis without ascites; F10.229 Alcohol dependence with intoxication, unspecified; E66.9 Obesity, unspecified; F17.210 Nicotine dependence, cigarettes, uncomplicated; E53.8 Deficiency of other specified B group vitamins; R65.11 Systemic inflammatory response syndrome (SIRS) of non-infectious origin with acute organ dysfunction; R74.0 Nonspecific elevation of levels of transaminase and lactic acid dehydrogenase [LDH]; K76.0 Fatty (change of) liver, not elsewhere classified; G47.00 Insomnia, unspecified; Z83.3 Family history of diabetes mellitus; Z82.49 Family history of ischemic heart disease and other diseases of the circulatory system; Z68.34 Body mass index [BMI] 34.0-34.9, adult

== ENCOUNTER 2019-11-09 22:34 | Inpatient (IN) | payer OTHER ==
[~2019-11-09] VITALS: Ht 185.4 cm; Wt 133.5 kg
[~2019-11-09 22:34] MED LIST changes: +VITAMIN D3125 MC1 PO; +ZESTRIL10 MG PO
--- NOTE | 2019-11-09 23:00 | NUR ---
EKG PERFORMED. PT VERY UNCOOPERATIVE. PT SEEMS CONFUSED AND VERBALIZES THAT HE DOES NOT WANT TO BE HERE. PT FINALLY COOPERATING AND EKG WAS COMPLETED
[2019-11-09 23:03] LABS: BASO # 0.1 10*3/uL (0.0-0.1); BASO % 0.6 % (0.0-1.0); EOS # 0.7 10*3/uL (0.0-0.4); EOS % 7.2 % (1.0-4.0); LYMPH # 3.9 10*3/uL (1.3-4.4); LYMPH % 39.8 % (27.0-41.0); MEAN CELL VOLUME 95.6 fl (80.0-94.0); MEAN CORPUSCULAR HGB 31.8 pg (27.0-31.0); MEAN CORPUSCULAR HGB CONC 33.3 g/dl (33.0-37.0); MEAN PLATELET VOLUME 9.4 fl (9.6-12.3); MONO # 0.5 10*3/uL (0.1-1.0); MONO % 5.5 % (3.0-9.0); NEUT # 4.5 10*3/uL (2.3-7.9); NEUT % 46.3 % (47.0-73.0); PLATELET COUNT AUTOMATED 298 10*3/uL (130-400); RED BLOOD COUNT 4.81 10*6/uL (4.50-5.90); RED CELL DISTRI WIDTH 11.6 % (0-14.5); WHITE BLOOD COUNT 9.8 10*3/uL (4.8-10.8)
--- NOTE | 2019-11-09 23:10 | NUR ---
PT VERBALLY ESCALATED AT THIS TIME. PULLED IV OUT. PT DENIES ETOH INTAKE. WILL CONTINUE TO MONITOR.
[2019-11-09 23:18] LABS: ALBUMIN 3.4 gm/dl (3.1-4.5); ALKALINE PHOSPHATASE 86 U/L (45-117); BUN 13 mg/dl (7-24); CHLORIDE 113 mmol/L (98-107); POTASSIUM 3.8 mmol/L (3.5-5.1); SGOT/AST 23 IU/L (3-35); SGPT/ALT 43 U/L (12-78); SODIUM 144 mmol/L (136-145); TOTAL PROTEIN 7.2 gm/dL (6.4-8.2)
[2019-11-09 23:20] LABS: ACETAMINOPHEN (TYLENOL) < 5.0 ug/ml (10-30)
--- NOTE | 2019-11-09 23:20 | NUR ---
PT SHIRT AND BOOTS TAKEN OFF WITH MUCH REDIRECTION. PT NOT WILLING TO REMOVE JEANS AT THIS TIME. WILL ATTEMPT AGAIN SOON.
--- NOTE | 2019-11-09 23:33 | NUR ---
PT BACK FROM XRAY. BEING VERY UNCOOPERATIVE. PT VERBALIZING "I AM ABOUT TO GO CRAZY" AND "YOU DONT WANT TO SEE MY CRAZY". SECURITY AT DOOR ATTEMPTING TO CALM HIM DOWN. PT TRYING TO LEAVE ROOM. DOOR NOW CLOSED AND LOCKED. MONITOR IS ON. PT PACING FLOOR. WILL CONTINUE TO MONITOR.
--- NOTE | 2019-11-09 23:45 | NUR ---
PT NOW LAYING ON BED WITH NO SHIRT OR GOWN ON. BLANKET WAS GIVEN TO PT FOR COMFORT. SAFETY PRECAUTIONS INTACT. WILL CONTINUE TO MONITOR.
[2019-11-09 23:59] LABS: URINE AMPHETAMINES < 1000 (1000ng/ml); URINE BARBITURATES < 200 (200ng/ml); URINE BENZODIAZEPINES < 200 (200ng/ml); URINE CANNABINOIDS (THC) < 50 (50ng/ml); URINE COCAINE < 300 (300ng/ml); URINE METHADONE < 300 (300ng/ml); URINE OPIATES < 300 (300ng/ml)
--- NOTE | 2019-11-10 | NUR ---
PT MOVED FROM ROOM 11 TO ROOM 4 PER MD REQUEST. SAFETY PRECAUTIONS INTACT. WILL CONTINUE TO MONITOR.
[2019-11-10 00:13] LABS: URINE PHENCYCLIDINE < 25 (25ng/ml)
--- NOTE | 2019-11-10 00:15 | NUR ---
PT CALM. IV ACCESS GAINED. MEDICATION STARTED. VISIBLE FROM NURSES STATION. WILL CONTINUE TO MONITOR.
[2019-11-10 00:16] LABS: BACTERIA TRACE; BILIRUBIN Negative; BLOOD Negative (NEGATIVE); CLARITY Clear (CLEAR); COLOR Yellow (YELLOW); GLUCOSE Negative; KETONE Negative; LEUKO ESTERASE Negative (NEGATIVE); NITRITE Negative (NEGATIVE); PH 5.5 (4.5-8.0); UROBILINOGEN 0.2 E.U./dl (0.0-1.0); WBC 0-2 wbc/hpf (0-5)
[2019-11-10 00:33] VITALS: BP 142/90
--- NOTE | 2019-11-10 00:36 | NUR ---
PT LAYING ON COT. RELAXED. SAFETY PRECAUTIONS INTACT. WILL CONTINUE TO MONITOR.
--- NOTE | 2019-11-10 01:01 | NUR ---
PT SLEEPING ON COT AT THIS TIME. NO DISTRESS NOTED. BED RAILS UP X 2. VISIBLE FROM NURSES STATION.
--- NOTE | 2019-11-10 01:24 | NUR ---
NO BED AVAILABLE AT THIS TIME PER NURSE PIPE FINISHER. RESIDENTS TO ER THIS RN GAVE REPORT.
--- NOTE | 2019-11-10 01:45 | NUR ---
PT SLEEPING ON COT. NO DISTRESS NOTED AT THIS TIME. VISIBLE FROM NURSES STATION. SAFETY PRECAUTIONS INTACT. WILL CONTINUE TO MONITOR.
--- NOTE | 2019-11-10 02:00 | NUR ---
PT SLEEPING ON COT. NO DISTRESS NOTED. WILL CONTINUE TO MONITOR.
--- NOTE | 2019-11-10 02:15 | NUR ---
PT RESTING WITH NO DISTRESS NOTED. SAFETY PRECAUTIONS INTACT. WILL CONTINUE TO MONITOR.
--- NOTE | 2019-11-10 02:30 | NUR ---
PT SLEEPING ON BACK ON BED. VISIBLE FROM NURSING STATION. NO DISTRESS NOTED. BEDRAILS X 2. WILL CONTINUE TO MONITOR.
--- NOTE | 2019-11-10 02:45 | NUR ---
PT SLEEPING ON BACK. NO DISTRESS NOTED AT THIS TIME. WILL CONTINUE TO MONITOR.
--- NOTE | 2019-11-10 02:54 | NUR ---
PER MD HUDSON, PT DOES NOT NEED TO BE 1:1 AT THIS TIME.PT REMAINS IN LINE OF SIGHT WITH [id number] OBSERVATION MONITORING.
--- NOTE | 2019-11-10 03:04 | NUR ---
PT RESTING IN BED.SIDERAILS UP X2.LIGHTS DIMMED FOR COMFORT.PT REMAINS IN LINE OF SIGHT.CCM.FLUIDS CONTINUE TO INFUSE.
--- NOTE | 2019-11-10 03:16 | NUR ---
PT RESTING IN BED WITH EYES CLOSED.WILL CONTINUE TO MONITOR.
--- NOTE | 2019-11-10 03:30 | NUR ---
PT SLEEPING ON COT IN SUPINE POSITION. . NO DISTRESS NOTED AT THIS TIME. SAFETY PRECAUTIONS CONTINUE TO BE INTACT. WILL CONTINUE TO MONITOR.
--- NOTE | 2019-11-10 03:45 | NUR ---
PT SLEEPING ON COT. SAFETY PRECAUTIONS INTACT. WILL CONTINUE TO MONITOR.
[2019-11-10 04:00] VITALS: BP 110/70
--- NOTE | 2019-11-10 04:00 | NUR ---
NO DISTRESS NOTED. BED RAILS X 2. VISIBLE FROM NURSE STATION. WILL CONTINUE TO MONITOR.
--- NOTE | 2019-11-10 04:15 | NUR ---
PT REMAINS SLEEPING IN ROOM. VISIBLE FROM NURSE'S STATION. WILL CONTINUE TO MONITOR.
--- NOTE | 2019-11-10 04:33 | NUR ---
PT SLEEPING ON COT. NO DISTRESS NOTED. SAFETY PRECAUTIONS INTACT. WILL CONTINUE TO MONITOR.
--- NOTE | 2019-11-10 04:41 | NUR ---
PT AWAKE. REPOSITIONED. REQUESTING BLANKET AT THIS TIME. SAFETY PRECAUTIONS INTACT. WILL CONTINUE TO MONITOR.
--- NOTE | 2019-11-10 05:00 | NUR ---
PT SLEEPING ON COT. SAFETY PRECAUTIONS INTACT. VISIBLE FROM NURSES STATION. WILL CONTINUE TO MONITOR.
--- NOTE | 2019-11-10 05:15 | NUR ---
GETTING PT READY TO GO TO FLOOR. GATHERING ITEMS, UPDATING VITALS. PT SLEEPING ON COT.
[2019-11-10 05:17] VITALS: BP 107/67
[2019-11-10 05:20] VITALS: BP 110/70
--- NOTE | 2019-11-10 05:20 | NUR ---
A 28, admitted to [facility], under the services of STACI Enriquez DO with a diagnosis of SUICIDAL IDEATION, ALCOHOL INTOXICATION. Chief complaint is INTO ER WITH C/O HALLUCINATIN D/T'S, ETOH INTOXICATION. Patient arrived via stretcher from ER. Monitor applied. Initial assessment completed. Vital signs taken and recorded. STACI ENRIQUEZ DO notified of admission to the unit. Orders received. See assessment for past medical history, medications and allergies. Patient and/or family oriented to unit. [facility] visitation policy reviewed. Clothing/patient valuable form completed. JAQUELINE RASMUSSEN
[2019-11-10 08:00] VITALS: BP 108/69
--- NOTE | 2019-11-10 08:25 | NUR ---
PATIENT RESTING COMFORTABLY IN BED. PATIENT IV WAS FOUND DISLODGED WHILE PERFORMING INITIAL ASSESSMENT. PATIENT APPEARS AGITATED AT THIS TIME, AND REQUESTING TO LEAVE AT THIS TIME, PATIENT STILL APPEARS WITHDRAWN WHEN DISCUSSING SUICIDAL IDEATION. PINK SLIP COMPLETED AND SIGNED BY DR. BUNCH AT THIS TIME. PATIENT RETURNED TO SLEEPING AT THIS TIME. CALL LIGHT WITHIN REACH. SEE ASSESSMENT.
--- NOTE | 2019-11-10 09:09 | NUR ---
DR. GARCÍA IN TO SEE PATIENT AND DISCUSS PLAN OF CARE.
--- NOTE | 2019-11-10 11:53 | NUR ---
psychiatric assessment: met with client who is known to me, a lengthy hx of alcohol abuse, he said he went to [place] recently and completed their 28 day program, but then when he came home from there he drank a bottle of vodka, he denies any suicidal ideation, he reports that he may say things when he is blacked out drunk, but he doesnt want to kill himself, he said that he doesnt want to go to [facility], he said that he does not want me to set him up any outpatient care, he said that he wants to think about it, he reports that he refused outpatient at [place] as well and he said that he has to do this on his own. he is A&ox3, he is not psychotic, he would not meet criteria for involuntary admission at this time, he does not want outpatient treatment and we cannot force that. he does need services for stability, but he refuses.
[2019-11-10 12:00] VITALS: BP 134/68
--- NOTE | 2019-11-10 13:49 | NUR ---
PATIENT WANTING TO LEAVE AGAINST MEDICAL ADVICE AT THIS TIME. PATIENT IS A&OX3 AND COMPETANT. DR. ALIVIA DOTY.
== END 2019-11-10 13:49 | disposition left against medical advice (07) | DRG 770 ==
LOC: ED 22:34 → EDHOLD 11-10 00:53 → ICCU 11-10 05:11
PROVIDERS: Emergency Medicine Emergency Medical Services; ADMIT Internal Medicine; ATTEND Internal Medicine
DX: F10.221 Alcohol dependence with intoxication delirium (principal); J18.9 Pneumonia, unspecified organism; R45.851 Suicidal ideations; D75.89 Other specified diseases of blood and blood-forming organs; F17.210 Nicotine dependence, cigarettes, uncomplicated; G47.00 Insomnia, unspecified; F10.239 Alcohol dependence with withdrawal, unspecified; I10 Essential (primary) hypertension; F39 Unspecified mood [affective] disorder; F41.9 Anxiety disorder, unspecified; E87.8 Other disorders of electrolyte and fluid balance, not elsewhere classified; E83.51 Hypocalcemia; Z82.49 Family history of ischemic heart disease and other diseases of the circulatory system; Z83.3 Family history of diabetes mellitus; Z79.899 Other long term (current) drug therapy; Z53.29 Procedure and treatment not carried out because of patient's decision for other reasons

== ENCOUNTER 2019-11-15 01:00 | Inpatient (IN) | payer OTHER ==
[2019-11-15] VITALS (7 sets, daily range): BP systolic 105–168; BP diastolic 77–108
[~2019-11-15] VITALS: Ht 188 cm; Wt 129.3 kg
[2019-11-15 02:09] LABS: BASO # 0.1 10*3/uL (0.0-0.1); BASO % 0.5 % (0.0-1.0); EOS # 0.3 10*3/uL (0.0-0.4); EOS % 3.1 % (1.0-4.0); HEMATOCRIT 47.7 % (42.0-52.0); LYMPH # 3.1 10*3/uL (1.3-4.4); LYMPH % 32.6 % (27.0-41.0); MEAN CELL VOLUME 94.1 fl (80.0-94.0); MONO # 0.4 10*3/uL (0.1-1.0); MONO % 4.6 % (3.0-9.0); NEUT # 5.7 10*3/uL (2.3-7.9); PLATELET COUNT AUTOMATED 268 10*3/uL (130-400); RED BLOOD COUNT 5.07 10*6/uL (4.50-5.90); RED CELL DISTRI WIDTH 11.5 % (0-14.5); WHITE BLOOD COUNT 9.6 10*3/uL (4.8-10.8)
[2019-11-15 02:24] LABS: ACETAMINOPHEN (TYLENOL) < 5.0 ug/ml (10-30); ALBUMIN 3.6 gm/dl (3.1-4.5); ALKALINE PHOSPHATASE 86 U/L (45-117); BUN 11 mg/dl (7-24); CHLORIDE 108 mmol/L (98-107); CREATININE 0.95 mg/dL (0.70-1.30); POTASSIUM 3.6 mmol/L (3.5-5.1); SGOT/AST 26 IU/L (3-35); SGPT/ALT 28 U/L (12-78); SODIUM 143 mmol/L (136-145); TOTAL PROTEIN 7.2 gm/dL (6.4-8.2)
[2019-11-15 03:10] LABS: URINE AMPHETAMINES < 1000 (1000ng/ml); URINE BARBITURATES < 200 (200ng/ml); URINE BENZODIAZEPINES > 200 (200ng/ml); URINE CANNABINOIDS (THC) < 50 (50ng/ml); URINE COCAINE < 300 (300ng/ml); URINE METHADONE < 300 (300ng/ml); URINE OPIATES < 300 (300ng/ml)
[2019-11-15 03:12] LABS: URINE PHENCYCLIDINE < 25 (25ng/ml)
[2019-11-15 03:13] LABS: BILIRUBIN Negative; BLOOD Negative (Negative); CLARITY Clear (Clear); COLOR Yellow (Yellow); GLUCOSE Negative; KETONE Negative; LEUKO ESTERASE Negative (Negative); NITRITE Negative (Negative); PH 6.5 (4.5-8.0); SPECIFIC GRAVITY < 1.005 (1.001-1.030); UROBILINOGEN 0.2 E.U./dl (0.0-1.0)
[2019-11-15 03:14] LABS: WBC 0-2 wbc/hpf (0-5)
== END 2019-11-15 14:50 | disposition left against medical advice (07) | DRG 770 ==
LOC: ED 01:00 → ICCU 02:06 → EDHOLD 02:06 → ICCU 03:11 → 5E 14:18
PROVIDERS: Emergency Medicine; ADMIT Internal Medicine; ATTEND Internal Medicine
DX: F10.229 Alcohol dependence with intoxication, unspecified (principal); F10.239 Alcohol dependence with withdrawal, unspecified; E83.51 Hypocalcemia; E87.8 Other disorders of electrolyte and fluid balance, not elsewhere classified; R73.9 Hyperglycemia, unspecified; F17.210 Nicotine dependence, cigarettes, uncomplicated; I10 Essential (primary) hypertension; F90.9 Attention-deficit hyperactivity disorder, unspecified type; G47.00 Insomnia, unspecified; R00.0 Tachycardia, unspecified; D75.89 Other specified diseases of blood and blood-forming organs; Z82.49 Family history of ischemic heart disease and other diseases of the circulatory system; Z83.3 Family history of diabetes mellitus; Z71.6 Tobacco abuse counseling

== ENCOUNTER 2019-11-25 05:45 | Emergency (ER) | payer OTHER ==
[~2019-11-25] VITALS: Ht 175.2 cm; Wt 108.9 kg
[2019-11-25 06:18] LABS: BASO % 0.5 % (0.0-1.0); EOS # 0.2 10*3/uL (0.0-0.4); HEMATOCRIT 44.6 % (42.0-52.0); LYMPH # 2.3 10*3/uL (1.3-4.4); LYMPH % 41.5 % (27.0-41.0); MEAN CELL VOLUME 94.9 fl (80.0-94.0); MEAN CORPUSCULAR HGB 31.3 pg (27.0-31.0); MEAN PLATELET VOLUME 8.4 fl (9.6-12.3); MONO # 0.3 10*3/uL (0.1-1.0); MONO % 6.1 % (3.0-9.0); NEUT # 2.7 10*3/uL (2.3-7.9); NEUT % 48.5 % (47.0-73.0); PLATELET COUNT AUTOMATED 118 10*3/uL (130-400); RED CELL DISTRI WIDTH 12.1 % (0-14.5); WHITE BLOOD COUNT 5.6 10*3/uL (4.8-10.8)
[2019-11-25 06:36] LABS: ALBUMIN 3.6 gm/dl (3.1-4.5); ALKALINE PHOSPHATASE 73 U/L (45-117); BUN 12 mg/dl (7-24); CHLORIDE 110 mmol/L (98-107); CREATININE 1.04 mg/dL (0.70-1.30); POTASSIUM 3.5 mmol/L (3.5-5.1); SGOT/AST 50 IU/L (3-35); SGPT/ALT 34 U/L (12-78); SODIUM 144 mmol/L (136-145); TOTAL PROTEIN 7.4 gm/dL (6.4-8.2)
[2019-11-27] MEDS ORDERED: ATIVAN1 MG PO (09:39)
== END 2019-11-26 06:26 | disposition home or self-care (01) ==
LOC: ED 05:45
PROVIDERS: Internal Medicine
DX: F10.129 Alcohol abuse with intoxication, unspecified (principal); Z79.899 Other long term (current) drug therapy; Y90.9 Presence of alcohol in blood, level not specified

== ENCOUNTER 2019-11-27 03:31 | Emergency (ER) | payer OTHER ==
[~2019-11-27] VITALS: Ht 185.4 cm; Wt 127.0 kg
[2019-11-27 04:40] LABS: BASO % 0.2 % (0.0-1.0); EOS # 0.1 10*3/uL (0.0-0.4); EOS % 0.7 % (1.0-4.0); HEMATOCRIT 40.8 % (42.0-52.0); LYMPH # 0.8 10*3/uL (1.3-4.4); LYMPH % 8.3 % (27.0-41.0); MEAN CELL VOLUME 94.2 fl (80.0-94.0); MEAN CORPUSCULAR HGB 31.9 pg (27.0-31.0); MEAN CORPUSCULAR HGB CONC 33.8 g/dl (33.0-37.0); MEAN PLATELET VOLUME 9.2 fl (9.6-12.3); MONO # 0.6 10*3/uL (0.1-1.0); MONO % 6.8 % (3.0-9.0); NEUT # 7.6 10*3/uL (2.3-7.9); NEUT % 83.8 % (47.0-73.0); PLATELET COUNT AUTOMATED 99 10*3/uL (130-400); RED BLOOD COUNT 4.33 10*6/uL (4.50-5.90); RED CELL DISTRI WIDTH 12.4 % (0-14.5); WHITE BLOOD COUNT 9.1 10*3/uL (4.8-10.8)
[2019-11-27 04:59] LABS: ALKALINE PHOSPHATASE 74 U/L (45-117); BUN 11 mg/dl (7-24); CHLORIDE 100 mmol/L (98-107); CREATININE 0.81 mg/dL (0.70-1.30); POTASSIUM 3.3 mmol/L (3.5-5.1); SGOT/AST 43 IU/L (3-35); SGPT/ALT 34 U/L (12-78); SODIUM 137 mmol/L (136-145); TOTAL PROTEIN 7.9 gm/dL (6.4-8.2)
[2019-11-27 05:02] LABS: ETHYL ALCOHOL < 3.0 mg/dl (<3)
[2019-11-27] MEDS ORDERED: ATIVAN1 MG PO (09:39)
== END 2019-11-27 09:46 | disposition home or self-care (01) ==
LOC: ED 03:31
PROVIDERS: Internal Medicine
DX: F10.239 Alcohol dependence with withdrawal, unspecified (principal); R44.3 Hallucinations, unspecified; F17.210 Nicotine dependence, cigarettes, uncomplicated; Z79.899 Other long term (current) drug therapy; Y90.9 Presence of alcohol in blood, level not specified

== ENCOUNTER 2019-11-28 13:38 | Inpatient (IN) | payer OTHER ==
[~2019-11-28] VITALS: Ht 185.4 cm; Wt 127.0 kg
[~2019-11-28 13:38] MED LIST changes: +ATIVAN1 MG PO
[2019-11-28 13:40] VITALS: BP 150/96
[2019-11-28 13:44] VITALS: BP 150/96
[2019-11-28 13:59] LABS: BASO % 0.2 % (0.0-1.0); EOS # 0.1 10*3/uL (0.0-0.4); EOS % 0.9 % (1.0-4.0); HEMATOCRIT 41.9 % (42.0-52.0); LYMPH # 1.1 10*3/uL (1.3-4.4); LYMPH % 12.8 % (27.0-41.0); MEAN CELL VOLUME 92.7 fl (80.0-94.0); MEAN CORPUSCULAR HGB 31.6 pg (27.0-31.0); MEAN CORPUSCULAR HGB CONC 34.1 g/dl (33.0-37.0); MEAN PLATELET VOLUME 9.5 fl (9.6-12.3); MONO # 0.8 10*3/uL (0.1-1.0); MONO % 8.6 % (3.0-9.0); NEUT # 6.8 10*3/uL (2.3-7.9); PLATELET COUNT AUTOMATED 121 10*3/uL (130-400); RED BLOOD COUNT 4.52 10*6/uL (4.50-5.90); RED CELL DISTRI WIDTH 12.5 % (0-14.5); WHITE BLOOD COUNT 8.8 10*3/uL (4.8-10.8)
--- NOTE | 2019-11-28 14:02 | NUR ---
[facility] LEFT PHONE NUMBER. [phone] HE RODE DOWN WITH PT IN AMBULANCE AND ASKS TO BE CONTACTED IF PT IS DISCHARGED SO HE CAN PICK HIM UP AND PLACE PT IN A LONGER CARE FACILITY. HE STATES THAT IF PT IS RELEASED WITH NO ONES KNOWLEDGE PT COULD GO "TO A DARK PLACE." HE ALSO NOTES THAT PT STARTED TAKING ATIVAN YESTERDAY AND SINCE HAS TAKEN X8 PILLS
[2019-11-28 14:10] LABS: ACT PARTIAL THROMBO TIME 29.2 SECONDS (20.0-32.1); INTERNATIONAL NORM RATIO 1.1 (2.0-3.5)
[2019-11-28 14:19] LABS: ALKALINE PHOSPHATASE 79 U/L (45-117); BUN 16 mg/dl (7-24); CHLORIDE 93 mmol/L (98-107); CREATININE 0.95 mg/dL (0.70-1.30); POTASSIUM 2.7 mmol/L (3.5-5.1); SGOT/AST 100 IU/L (3-35); SGPT/ALT 50 U/L (12-78); SODIUM 132 mmol/L (136-145); TOTAL PROTEIN 8.1 gm/dL (6.4-8.2)
[2019-11-28 14:31] LABS: ETHYL ALCOHOL < 3.0 mg/dl (<3)
[2019-11-28 15:55] VITALS: BP 125/80
[2019-11-28 16:17] VITALS: BP 118/82
--- NOTE | 2019-11-28 16:40 | NUR ---
A 28, admitted to , under the services of MARINO Newton DO with a diagnosis of ALCOHOLIC WITHDRAWL, DELIRIUM, HYPOKALEMIA. Chief complaint is ALCOHOL WITHDRAWL. Patient arrived via wheel chair from ER. Monitor applied. Initial assessment completed. Vital signs taken and recorded. MARINO NEWTON DO notified of admission to the unit. Orders received. See assessment for past medical history, medications and allergies. Patient and/or family oriented to unit. [address] visitation policy reviewed. Clothing/patient valuable form completed. KATHRYN BERUMEN
[2019-11-28 16:49] VITALS: BP 114/92
--- NOTE | 2019-11-28 19:30 | NUR ---
PT RESTING IN ROOM. RESPS EASY AND NON LABORED. NO S/S OF DISTRESS NOTED. VSS. WHITE BOARD UPDATED. POC DISCUSSED W PT. A/O X3. SLIGHTLY DIAPHORETIC. NO TREMORS. WILL CONTINUE TO MONITOR. CALL LIGHT WITHIN REACH.
[2019-11-28 20:00] VITALS: BP 135/84
[2019-11-28 20:23] LABS: BILIRUBIN 2+ (Negative); BLOOD Trace-Lysed (Negative); CLARITY Clear (Clear); COLOR Dark Yellow (Yellow); GLUCOSE Negative (Negative); KETONE 3+ (Negative); LEUKO ESTERASE Trace (Negative); NITRITE Negative (Negative); PH 5.5 (4.5-8.0); SPECIFIC GRAVITY >= 1.030 (1.001-1.030)
[2019-11-28 20:27] LABS: URINE AMPHETAMINES < 1000 (1000ng/ml); URINE BARBITURATES < 200 (200ng/ml); URINE BENZODIAZEPINES > 200 (200ng/ml); URINE CANNABINOIDS (THC) < 50 (50ng/ml); URINE COCAINE < 300 (300ng/ml); URINE METHADONE < 300 (300ng/ml); URINE OPIATES < 300 (300ng/ml)
[2019-11-28 20:28] LABS: URINE PHENCYCLIDINE < 25 (25ng/ml)
[2019-11-28 20:36] LABS: EPITHELIAL CELLS 0-2
--- NOTE | 2019-11-28 21:07 | NUR ---
PT AMBULATING IN ROOM. DOES NOT WANT HEART MONITOR FIXED AT THIS TIME.
--- NOTE | 2019-11-28 21:30 | NUR ---
PT CONTINUES TO REFUSE HEART MONITOR. STATES HE IS LEAVING AMA. WHEN ASKED IF THIS NURSE COULD REMOVE IV SITE HE STATES NO NEVERMIND I WILL STAY. WILL CONTINUE TO MONITOR .CALL LIGHT WITHIN REACH.
--- NOTE | 2019-11-28 22:43 | NUR ---
PT REQUESTING TO SIGN OUT AMA. DR BELCHER NOTIFIED AND ON THE FLOOR TO TALK WITH PT. Hep Lock discontinued PER PT REQUEST Site asymptomatic. Pressure applied. Sterile dressing applied. NARCISO CID
--- NOTE | 2019-11-28 22:47 | NUR ---
Patient signed out AMA. Patient encouraged to stay and advised of possible consequences of premature discharge. Physician DR BELCHER and medical records supervisor JOSHUA notified. Patient instructed what to do regarding care post-departure from the hospital; emergency phone numbers provided. NARCISO CID
--- NOTE | 2019-11-28 23:03 | NUR ---
PATIENTS MOTHER CALLED IN OUTRAGED. STATES PATIENT JUST CALLED HER FROM OUTSIDE OF THE HOSPITAL AND THAT HE IS HALLUCINATING. EXPLAINED TO PTS MOTHER THAT DR BELCHER WAS ON THE FLOOR AND EVALUATED THE PATIENT AND THAT HE WAS NOT DISPLAYING SIGNS OF WITHDRAWAL AND WAS NOT HALLUCINATING. PTS MOTHER YELLING AND BECOMING VERBALLY ABUSIVE ON THE PHONE WITH THIS NURSE. REQUESTING FOR DR BELCHER TO CALL HER. TOOK DOWN HER NUMBER AND CALLED DR BELCHER AND EXPLAINED TO HIM THE SITUATION. SECURITY ALSO NOTIFIED OF SITUATION.
== END 2019-11-28 23:18 | disposition left against medical advice (07) | DRG 770 ==
LOC: ED 13:38 → EDHOLD 15:13 → 4E 15:13
PROVIDERS: Emergency Medicine; ADMIT Internal Medicine; ATTEND Internal Medicine
DX: F10.231 Alcohol dependence with withdrawal delirium (principal); E87.6 Hypokalemia; F41.9 Anxiety disorder, unspecified; E83.42 Hypomagnesemia; I10 Essential (primary) hypertension; R00.0 Tachycardia, unspecified; F17.210 Nicotine dependence, cigarettes, uncomplicated; K76.0 Fatty (change of) liver, not elsewhere classified; F90.9 Attention-deficit hyperactivity disorder, unspecified type; R74.01 Elevation of levels of liver transaminase levels; E87.1 Hypo-osmolality and hyponatremia; Z82.49 Family history of ischemic heart disease and other diseases of the circulatory system; Z83.3 Family history of diabetes mellitus; Z53.29 Procedure and treatment not carried out because of patient's decision for other reasons

== ENCOUNTER 2020-02-07 12:45 | Observation (INO) | payer OTHER ==
[~2020-02-07] VITALS: Ht 185.4 cm; Wt 147.5 kg
[2020-02-07 13:02] VITALS: BP 145/99
[2020-02-07 14:23] LABS: BASO # 0.1 10*3/uL (0.0-0.1); BASO % 0.9 % (0.0-1.0); EOS # 0.2 10*3/uL (0.0-0.4); EOS % 2.7 % (1.0-4.0); HEMATOCRIT 50.6 % (42.0-52.0); LYMPH # 1.9 10*3/uL (1.3-4.4); LYMPH % 32.5 % (27.0-41.0); MEAN CELL VOLUME 92.5 fl (80.0-94.0); MEAN CORPUSCULAR HGB 30.7 pg (27.0-31.0); MEAN CORPUSCULAR HGB CONC 33.2 g/dl (33.0-37.0); MEAN PLATELET VOLUME 9.5 fl (9.6-12.3); MONO # 0.5 10*3/uL (0.1-1.0); MONO % 8.4 % (3.0-9.0); NEUT # 3.2 10*3/uL (2.3-7.9); NEUT % 55.3 % (47.0-73.0); PLATELET COUNT AUTOMATED 162 10*3/uL (130-400); RED BLOOD COUNT 5.47 10*6/uL (4.50-5.90); RED CELL DISTRI WIDTH 13.5 % (0-14.5); WHITE BLOOD COUNT 5.8 10*3/uL (4.8-10.8)
[2020-02-07 14:46] LABS: ACT PARTIAL THROMBO TIME 27.4 SECONDS (20.0-32.1); INTERNATIONAL NORM RATIO 0.9 (2.0-3.5)
[2020-02-07 15:02] LABS: ALBUMIN 3.6 gm/dl (3.1-4.5); ALKALINE PHOSPHATASE 84 U/L (45-117); BUN 9 mg/dl (7-24); CHLORIDE 105 mmol/L (98-107); CREATININE 0.87 mg/dL (0.70-1.30); LIPASE 362 U/L (73-393); SGOT/AST 145 IU/L (3-35); SGPT/ALT 112 U/L (12-78); SODIUM 142 mmol/L (136-145); TOTAL PROTEIN 7.3 gm/dL (6.4-8.2)
[2020-02-07 15:04] LABS: BILIRUBIN Negative (Negative); BLOOD Negative (Negative); CLARITY Clear (Clear); COLOR Yellow (Yellow); GLUCOSE Negative (Negative); KETONE Trace (Negative); LEUKO ESTERASE Negative (Negative); NITRITE Negative (Negative); PH 6.5 (4.5-8.0); SPECIFIC GRAVITY 1.015 (1.001-1.030)
[2020-02-07 15:14] LABS: ACETAMINOPHEN (TYLENOL) < 5.0 ug/ml (10-30)
[2020-02-07 15:14] LABS: URINE AMPHETAMINES < 1000 (1000ng/ml); URINE BARBITURATES < 200 (200ng/ml); URINE BENZODIAZEPINES < 200 (200ng/ml); URINE CANNABINOIDS (THC) < 50 (50ng/ml); URINE COCAINE < 300 (300ng/ml); URINE METHADONE < 300 (300ng/ml); URINE OPIATES < 300 (300ng/ml)
[2020-02-07 15:15] LABS: TROPONIN I < 0.015 ng/ml (<0.045)
[2020-02-07 15:16] LABS: URINE PHENCYCLIDINE < 25 (25ng/ml)
[2020-02-07 15:20] LABS: EPITHELIAL CELLS 0-2; WBC 0-2 wbc/hpf (0-5)
[2020-02-07 17:52] LABS: ABG BASE EXCESS 1.8 mmol/L (-2.0-2.0); ARTERIAL BLOOD GAS PH 7.432 (7.35-7.45)
--- NOTE | 2020-02-07 21:12 | NUR ---
REPORT RECEIVED FROM KATHY PATEL.
--- NOTE | 2020-02-08 00:10 | NUR ---
PT RESTING IN BED AT THIS TIME. CALL LIGHT WITHIN REACH. WILL CONTINUE TO MONITOR.
--- NOTE | 2020-02-08 01:05 | NUR ---
PT REQUESTING BOXED LUNCH.
--- NOTE | 2020-02-08 01:10 | NUR ---
PT GIVEN BOXED LUNCH. PT HAS BEEN MEDICATED. PT EATING AND WATCHING TELEVISION. NO VOICED COMPLAINTS. CALL LIGHT WITHIN REACH. WILL CONTINUE TO MONITOR.
[2020-02-08 01:29] VITALS: BP 142/92
--- NOTE | 2020-02-08 02:35 | NUR ---
PT IS NAUSEATED AND VOMITING. PT GIVEN PRN ZOFRAN. SEE EMAR.
--- NOTE | 2020-02-08 03:24 | NUR ---
PT RESTING AT THIS TIME. NO VOICED COMPLAINTS. CALL LIGHT WITHIN REACH. WILL CONTINUE TO MONITOR.
--- NOTE | 2020-02-08 04:16 | NUR ---
PT RESTING IN BED, WATCHING TELEVISION. PT REPORTS HE IS FEELING BETTER AFTER ZOFRAN EARLIER THIS MORNING. PT DENIES NAUSEA AT THIS TIME.
--- NOTE | 2020-02-08 05:23 | NUR ---
PT REMAINS RESTING. WILL CONTINUE TO MONITOR. CALL LIGHT WITHIN REACH. NO VOICED COMPLAINTS. NO DISTRESS NOTED.
[2020-02-08 06:10] LABS: BUN 9 mg/dl (7-24); CHLORIDE 101 mmol/L (98-107); POTASSIUM 3.7 mmol/L (3.5-5.1); SODIUM 138 mmol/L (136-145)
[2020-02-08 06:11] LABS: BASO % 0.6 % (0.0-1.0); EOS # 0.1 10*3/uL (0.0-0.4); EOS % 1.1 % (1.0-4.0); HEMATOCRIT 46.8 % (42.0-52.0); LYMPH # 0.9 10*3/uL (1.3-4.4); MEAN CELL VOLUME 92.1 fl (80.0-94.0); MEAN CORPUSCULAR HGB 30.7 pg (27.0-31.0); MEAN CORPUSCULAR HGB CONC 33.3 g/dl (33.0-37.0); MONO # 0.5 10*3/uL (0.1-1.0); MONO % 8.6 % (3.0-9.0); NEUT # 4.6 10*3/uL (2.3-7.9); NEUT % 74.5 % (47.0-73.0); PLATELET COUNT AUTOMATED 118 10*3/uL (130-400); RED BLOOD COUNT 5.08 10*6/uL (4.50-5.90); RED CELL DISTRI WIDTH 13.2 % (0-14.5); WHITE BLOOD COUNT 6.2 10*3/uL (4.8-10.8)
[2020-02-08 12:00] VITALS: BP 154/89
--- NOTE | 2020-02-08 12:00 | NUR ---
A 29, admitted to , under the services of IAN Rodriguez DO with a diagnosis of COVID 19, ALCOHOL WITHDRAWL, HYPOXIA. Chief complaint is ALCOHOL WITHDRAWL, SOB. Patient arrived via bed from ER. Monitor applied. Initial assessment completed. Vital signs taken and recorded. IAN RODRIGUEZ DO notified of admission to the unit. Orders received. See assessment for past medical history, medications and allergies. Patient and/or family oriented to unit. [facility] visitation policy reviewed. Clothing/patient valuable form completed. LONA TOVAR
--- NOTE | 2020-02-08 14:31 | NUR ---
Discharge instructions reviewed with patient/family. Patient receptive and verbalizes understanding. Follow-up care arranged. Written instructions given to patient/family. GREY CONTRERAS
== END 2020-02-08 14:31 | disposition home or self-care (01) ==
LOC: ED 12:45 → EDHOLD 15:36 → 4E 02-08 09:16
PROVIDERS: Physician Assistant; Student in an Organized Health Care Education/Training Program; ADMIT Student in an Organized Health Care Education/Training Program; ATTEND Student in an Organized Health Care Education/Training Program
DX: F10.239 Alcohol dependence with withdrawal, unspecified (principal); R51.9 Headache, unspecified; F90.9 Attention-deficit hyperactivity disorder, unspecified type; I10 Essential (primary) hypertension; K76.0 Fatty (change of) liver, not elsewhere classified; R06.02 Shortness of breath; G47.00 Insomnia, unspecified; R45.851 Suicidal ideations; F17.210 Nicotine dependence, cigarettes, uncomplicated; R00.0 Tachycardia, unspecified; E87.2 Acidosis; E83.51 Hypocalcemia; R74.01 Elevation of levels of liver transaminase levels; R80.9 Proteinuria, unspecified; D75.89 Other specified diseases of blood and blood-forming organs; Z71.6 Tobacco abuse counseling; Z98.890 Other specified postprocedural states; Z20.828 Contact with and (suspected) exposure to other viral communicable diseases

== ENCOUNTER 2020-02-18 11:22 | Inpatient (IN) | payer OTHER ==
[~2020-02-18] VITALS: Ht 185.4 cm; Wt 104.3 kg
[2020-02-18 11:25] VITALS: BP 136/78
[2020-02-18 12:12] LABS: BASO # 0.1 10*3/uL (0.0-0.1); BASO % 1.3 % (0.0-1.0); EOS # 0.1 10*3/uL (0.0-0.4); EOS % 1.8 % (1.0-4.0); HEMATOCRIT 47.9 % (42.0-52.0); LYMPH # 1.1 10*3/uL (1.3-4.4); LYMPH % 26.4 % (27.0-41.0); MEAN CELL VOLUME 94.9 fl (80.0-94.0); MEAN CORPUSCULAR HGB 30.5 pg (27.0-31.0); MEAN CORPUSCULAR HGB CONC 32.2 g/dl (33.0-37.0); MEAN PLATELET VOLUME 9.1 fl (9.6-12.3); MONO # 0.4 10*3/uL (0.1-1.0); MONO % 10.6 % (3.0-9.0); NEUT # 2.4 10*3/uL (2.3-7.9); NEUT % 59.6 % (47.0-73.0); PLATELET COUNT AUTOMATED 97 10*3/uL (130-400); RED BLOOD COUNT 5.05 10*6/uL (4.50-5.90); RED CELL DISTRI WIDTH 13.4 % (0-14.5)
[2020-02-18 12:23] LABS: ACT PARTIAL THROMBO TIME 26.9 SECONDS (20.0-32.1)
[2020-02-18 12:29] LABS: ALBUMIN 3.6 gm/dl (3.1-4.5); ALKALINE PHOSPHATASE 79 U/L (45-117); BUN 9 mg/dl (7-24); CHLORIDE 105 mmol/L (98-107); CREATININE 0.92 mg/dL (0.70-1.30); LIPASE 459 U/L (73-393); POTASSIUM 3.5 mmol/L (3.5-5.1); SGOT/AST 91 IU/L (3-35); SGPT/ALT 90 U/L (12-78); SODIUM 141 mmol/L (136-145); TOTAL PROTEIN 7.5 gm/dL (6.4-8.2)
[2020-02-18 12:31] LABS: TROPONIN I < 0.015 ng/ml (<0.045)
--- NOTE | 2020-02-18 13:30 | NUR ---
ALTHOUGH VERY PLEASANT, CALM AND COMPLIANT, PT IS HAVING DIFFICULTY LEAVING MONITORING DEVICES IN PLACE HE IS RESTLESS WHILE INTOXICATED AND ROLLS SIDE TO SIDE FREQUENTLY, ACCIDENTLY REMOVING THEM. PT DID EAT A MEAL TRAY ORDERED BY ADMITTING . HE DECLINES TO TRY TO PROVIDE A URINE SPECIMEN AT THIS TIME BUT URINAL REMAINS WITHIN REACH ON SIDERAIL IS HIS CALLBELL. PT WITHIN FULL VIEW OF DESK AND BOTH SIDERAILS ARE UP.
[2020-02-18 13:32] VITALS: BP 143/78
--- NOTE | 2020-02-18 14:37 | NUR ---
INITIAL SALINE BOLUS HAS COMPLETED, PT REFUSES ANY MORE SALINE VIA IV AT THIS TIME HE HAS URINATED QUITE A BIT AND WOULD LIKE TO SLEEP.
--- NOTE | 2020-02-18 14:59 | NUR ---
NURSE REPORT TO ROSEMARY ORELLANA RN, FOR CONTINUATION OF CARE.
--- NOTE | 2020-02-18 15:14 | NUR ---
LACTIC ACID 2.9
--- NOTE | 2020-02-18 16:59 | NUR ---
PATIENT RESTING IN BED. MEDICATED PER APR. NO COMPLAINTS AT THIS TIME.
--- NOTE | 2020-02-18 18:24 | NUR ---
RESTING. NPO NEW COMPLAINTS AT THIS TIME.
[2020-02-18 20:14] VITALS: BP 139/79
[2020-02-19] VITALS: BP 147/89
[2020-02-19 04:15] VITALS: BP 141/79
[2020-02-19 06:10] LABS: ALBUMIN 3.5 gm/dl (3.1-4.5); BUN 9 mg/dl (7-24); CHLORIDE 103 mmol/L (98-107); CREATININE 0.79 mg/dL (0.70-1.30); POTASSIUM 3.7 mmol/L (3.5-5.1); SGOT/AST 85 IU/L (3-35); SGPT/ALT 80 U/L (12-78); SODIUM 138 mmol/L (136-145); TOTAL PROTEIN 7.2 gm/dL (6.4-8.2)
[2020-02-19 06:13] LABS: ALKALINE PHOSPHATASE 77 U/L (45-117)
[2020-02-19 06:20] LABS: EOS # 0.1 10*3/uL (0.0-0.4); EOS % 2.1 % (1.0-4.0); HEMATOCRIT 41.9 % (42.0-52.0); LYMPH # 1.1 10*3/uL (1.3-4.4); LYMPH % 25.2 % (27.0-41.0); MEAN CELL VOLUME 92.7 fl (80.0-94.0); MEAN CORPUSCULAR HGB 31.2 pg (27.0-31.0); MEAN CORPUSCULAR HGB CONC 33.7 g/dl (33.0-37.0); MEAN PLATELET VOLUME 9.2 fl (9.6-12.3); MONO # 0.5 10*3/uL (0.1-1.0); MONO % 12.4 % (3.0-9.0); NEUT # 2.5 10*3/uL (2.3-7.9); NEUT % 59.1 % (47.0-73.0); PLATELET COUNT AUTOMATED 82 10*3/uL (130-400); RED BLOOD COUNT 4.52 10*6/uL (4.50-5.90); RED CELL DISTRI WIDTH 13.4 % (0-14.5); WHITE BLOOD COUNT 4.2 10*3/uL (4.8-10.8)
--- NOTE | 2020-02-19 07:25 | NUR ---
Shift chart check completed.
--- NOTE | 2020-02-19 08:30 | NUR ---
A 29, admitted to [facility], under the services of MARINO Newton DO with a diagnosis of ALCOHOL WITHDRAW . Chief complaint is CAME IN AFTER DRINKING ALL DAY YESTERDAY > 1/2 GAL [place] AND PER PT HAD MULTIPLE SEIZURES SO HE KEPT DRINKING. Patient arrived via stretcher from ER. Monitor applied. Initial assessment completed. Vital signs taken and recorded. MARINO NEWTON DO notified of admission to the unit. Orders received. See assessment for past medical history, medications and allergies. Patient and/or family oriented to unit. [facility] visitation policy reviewed. PATIENT ALERT & CO-OPERATIVE ON ADMISSION C/O HEADACHE RIC HEART
[2020-02-19 12:00] VITALS: BP 152/84
--- NOTE | 2020-02-19 12:00 | NUR ---
RESTING QUIELTY WATCHING TV. NO DISTRESS NOTED. NO COMPLAINTS OFFERED. ORAL FLUIDS TAKEN WELL. SAMUEL FISHMAN RN
--- NOTE | 2020-02-19 14:30 | NUR ---
LUNCH: 100% TAKEN. NO COMPLAINTS VOICED. RESTING QUIETLY. SAMUEL FISHMAN RN
[2020-02-19 16:00] VITALS: BP 150/94
--- NOTE | 2020-02-19 16:14 | NUR ---
[place] Hoist Operator made call to Pt. to complete Assessment. Pt. groggy and unable to finish complete words at times Patient states lives at Home with Friends There are No steps in the home. Physician: Ayde Moilna Pharmacy: [facility] Home health services: n/a Patient's level of ADLs: Independent Patient has working utilities: All are working DME: N/a Follow-up physician's appointment after d/c: Per Hospitalist Nurse Director Does patient want to access PORTAL?: No Discharge plan discussed with Pt. Pt. states he will return home at Discharge with No Needs. JORDIN RIVER LPN
--- NOTE | 2020-02-19 17:07 | NUR ---
MEDICATED WITH VISTARIL, ROBAXIN & ZOFRAN FOR MILD ANXIETY & ACHES ALONG WITH STOMACH UPSET..PATIENT WATCHING TV. MILD TREMORS VISIBLE WITH ACTIVITY BUT VERY CALM & CO-OPERATIVE
[2020-02-19 20:00] VITALS: BP 151/89
--- NOTE | 2020-02-19 20:33 | NUR ---
FATHER CALLED IN WITH [facility]. ALL QUESTIONS ANSWERED. HE ASKED TO HAVE HIS SON CALL. I INFORMED SON HE HE REPLIED "FK HIM" WE DON'T TALK.
--- NOTE | 2020-02-19 23:59 | NUR ---
2ND DOSE OF DEZARYL GIVEN FOR INSOMNIA AND VISTARIL GIVEN FOR ANXIETY. ASKING FOR ATIVAN BY NAME. INFORMED HIS THE NEXT DOSE IS 2AM AND HE IS FINE WITH THAT. OFFERED TOSET UP FOR BATH AND BED CHANGE AND HE WANTS TO DO IT IN THE MORNING.
[2020-02-20] VITALS: BP 148/90
--- NOTE | 2020-02-20 00:48 | NUR ---
APPEARS TO BE SLEEPING SINCE 2ND DOSE OF TRAZADONE AND VISTARIL GIVEN. HE INTERMITTENTLY TALKS IN HIS SLEEP
[2020-02-20 04:09] VITALS: BP 154/88
--- NOTE | 2020-02-20 05:15 | NUR ---
SLEPT PAST MIDNIGHT WITH MINIMAL INTERUPTIONS BUT WHEN RIGHT BACK TO SLEEP
--- NOTE | 2020-02-20 06:06 | NUR ---
24 HR chart check completed.
[2020-02-20 06:34] LABS: BASO % 0.6 % (0.0-1.0); EOS # 0.2 10*3/uL (0.0-0.4); EOS % 3.6 % (1.0-4.0); HEMATOCRIT 43.1 % (42.0-52.0); LYMPH # 1.1 10*3/uL (1.3-4.4); LYMPH % 23.5 % (27.0-41.0); MEAN CELL VOLUME 92.3 fl (80.0-94.0); MEAN CORPUSCULAR HGB 30.8 pg (27.0-31.0); MEAN CORPUSCULAR HGB CONC 33.4 g/dl (33.0-37.0); MEAN PLATELET VOLUME 10.4 fl (9.6-12.3); MONO # 0.4 10*3/uL (0.1-1.0); MONO % 9.2 % (3.0-9.0); NEUT # 2.9 10*3/uL (2.3-7.9); NEUT % 62.7 % (47.0-73.0); PLATELET COUNT AUTOMATED 75 10*3/uL (130-400); RED BLOOD COUNT 4.67 10*6/uL (4.50-5.90); RED CELL DISTRI WIDTH 13.6 % (0-14.5); WHITE BLOOD COUNT 4.7 10*3/uL (4.8-10.8)
[2020-02-20 07:08] LABS: ALBUMIN 3.5 gm/dl (3.1-4.5); BUN 12 mg/dl (7-24); CHLORIDE 102 mmol/L (98-107); POTASSIUM 3.7 mmol/L (3.5-5.1); SODIUM 135 mmol/L (136-145)
[2020-02-20 07:12] LABS: ALKALINE PHOSPHATASE 81 U/L (45-117); CREATININE 0.89 mg/dL (0.70-1.30); SGOT/AST 88 IU/L (3-35); SGPT/ALT 77 U/L (12-78); TOTAL PROTEIN 7.3 gm/dL (6.4-8.2)
[2020-02-20 08:00] VITALS: BP 154/91
--- NOTE | 2020-02-20 10:42 | NUR ---
RESIDENT SPOKE WITH PT THIS AM AND HE STATED HE IS GOING TO BE LEAVING TODAY "NO MATTER WHAT". AT THIS TIME PT REITERATES TO ME ,WHEN HE REFUSED HIS LOVENOX SHOT, THAT HE IS LEAVING TODAY AFTER THE DR SEES HIM SO HE DOES NOT NEED THE SHOT. PT IS COOPERATIVE, ALERT AND ORIENTED RESTING QUIETLY IN BED.
--- NOTE | 2020-02-20 12:16 | NUR ---
Discharge instructions reviewed with patient/family. Patient receptive and verbalizes understanding. Follow-up care arranged. Written instructions given to patient/family. ANDRE BUNCH
--- NOTE | 2020-02-20 12:28 | NUR ---
pt discharged at this time to home. Friend picked him up at hospital doors.
== END 2020-02-20 12:28 | disposition home or self-care (01) | DRG 775 ==
LOC: ED 11:22 → EDHOLD 11:50 → ICCU 11:50 → EDHOLD 12:04 → ICCU 02-19 07:21
PROVIDERS: Emergency Medicine; Hospitalist; Student in an Organized Health Care Education/Training Program; ADMIT Internal Medicine; ATTEND Internal Medicine
DX: F10.131 Alcohol abuse with withdrawal delirium (principal); E87.2 Acidosis; F90.9 Attention-deficit hyperactivity disorder, unspecified type; R74.01 Elevation of levels of liver transaminase levels; D72.810 Lymphocytopenia; F10.121 Alcohol abuse with intoxication delirium; I10 Essential (primary) hypertension; F10.182 Alcohol abuse with alcohol-induced sleep disorder; F17.210 Nicotine dependence, cigarettes, uncomplicated; Z83.3 Family history of diabetes mellitus; Z82.49 Family history of ischemic heart disease and other diseases of the circulatory system; Z79.899 Other long term (current) drug therapy

== ENCOUNTER 2020-02-22 08:51 | Emergency (ER) | payer OTHER ==
[~2020-02-22] VITALS: Ht 185.4 cm; Wt 136.1 kg
[2020-02-22 09:24] LABS: BASO # 0.1 10*3/uL (0.0-0.1); BASO % 0.8 % (0.0-1.0); EOS # 0.2 10*3/uL (0.0-0.4); EOS % 2.4 % (1.0-4.0); HEMATOCRIT 42.5 % (42.0-52.0); LYMPH # 1.2 10*3/uL (1.3-4.4); LYMPH % 13.1 % (27.0-41.0); MEAN CORPUSCULAR HGB CONC 34.1 g/dl (33.0-37.0); MEAN PLATELET VOLUME 9.6 fl (9.6-12.3); MONO # 1.1 10*3/uL (0.1-1.0); MONO % 11.7 % (3.0-9.0); NEUT # 6.4 10*3/uL (2.3-7.9); NEUT % 71.1 % (47.0-73.0); PLATELET COUNT AUTOMATED 157 10*3/uL (130-400); RED BLOOD COUNT 4.67 10*6/uL (4.50-5.90); WHITE BLOOD COUNT 9.1 10*3/uL (4.8-10.8)
[2020-02-22 09:35] LABS: ACT PARTIAL THROMBO TIME 26.8 SECONDS (20.0-32.1)
[2020-02-22 09:47] LABS: ALKALINE PHOSPHATASE 82 U/L (45-117); BUN 13 mg/dl (7-24); CHLORIDE 98 mmol/L (98-107); CREATININE 1.35 mg/dL (0.70-1.30); POTASSIUM 3.4 mmol/L (3.5-5.1); SGOT/AST 370 IU/L (3-35); SGPT/ALT 316 U/L (12-78); SODIUM 134 mmol/L (136-145); TOTAL PROTEIN 7.6 gm/dL (6.4-8.2)
[2020-02-22 09:54] LABS: ETHYL ALCOHOL < 3.0 mg/dl (<3); TROPONIN I < 0.015 ng/ml (<0.045)
[2020-02-22 10:00] LABS: CPK 1593 U/L (39-308)
== END 2020-02-22 10:27 | disposition home or self-care (01) ==
LOC: ED 08:51
PROVIDERS: Emergency Medicine
DX: F10.20 Alcohol dependence, uncomplicated (principal); I10 Essential (primary) hypertension; Z87.891 Personal history of nicotine dependence; Z79.899 Other long term (current) drug therapy; Y90.9 Presence of alcohol in blood, level not specified

== ENCOUNTER 2020-03-13 19:23 | Inpatient (IN) | payer OTHER ==
[~2020-03-13] VITALS: Ht 182.8 cm; Wt 128.8 kg
[2020-03-13] VITALS (8 sets, daily range): BP systolic 118–159; BP diastolic 66–109
[2020-03-13 19:58] LABS: BASO # 0.1 10*3/uL (0.0-0.1); BASO % 1.1 % (0.0-1.0); EOS # 0.1 10*3/uL (0.0-0.4); EOS % 1.7 % (1.0-4.0); HEMATOCRIT 51.7 % (42.0-52.0); LYMPH # 2.1 10*3/uL (1.3-4.4); LYMPH % 33.3 % (27.0-41.0); MEAN CELL VOLUME 96.8 fl (80.0-94.0); MEAN CORPUSCULAR HGB 31.5 pg (27.0-31.0); MEAN CORPUSCULAR HGB CONC 32.5 g/dl (33.0-37.0); MEAN PLATELET VOLUME 9.1 fl (9.6-12.3); MONO # 0.5 10*3/uL (0.1-1.0); MONO % 8.2 % (3.0-9.0); NEUT # 3.5 10*3/uL (2.3-7.9); NEUT % 55.5 % (47.0-73.0); PLATELET COUNT AUTOMATED 211 10*3/uL (130-400); RED BLOOD COUNT 5.34 10*6/uL (4.50-5.90); RED CELL DISTRI WIDTH 13.7 % (0-14.5); WHITE BLOOD COUNT 6.3 10*3/uL (4.8-10.8)
[2020-03-13 20:15] LABS: ALKALINE PHOSPHATASE 84 U/L (45-117); BUN 8 mg/dl (7-24); CHLORIDE 101 mmol/L (98-107); CREATININE 0.88 mg/dL (0.70-1.30); POTASSIUM 3.7 mmol/L (3.5-5.1); SGOT/AST 128 IU/L (3-35); SGPT/ALT 126 U/L (12-78); SODIUM 139 mmol/L (136-145)
[2020-03-13 21:12] LABS: INTERNATIONAL NORM RATIO 0.9 (2.0-3.5)
[2020-03-13 22:45] LABS: URINE AMPHETAMINES < 1000 (1000ng/ml); URINE BARBITURATES < 200 (200ng/ml); URINE BENZODIAZEPINES < 200 (200ng/ml); URINE CANNABINOIDS (THC) < 50 (50ng/ml); URINE COCAINE < 300 (300ng/ml); URINE METHADONE < 300 (300ng/ml); URINE OPIATES < 300 (300ng/ml)
[2020-03-13 22:49] LABS: URINE PHENCYCLIDINE < 25 (25ng/ml)
[2020-03-14] VITALS: BP 120/67
[2020-03-14 04:04] VITALS: BP 129/77
[2020-03-14 06:06] LABS: BASO # 0.1 10*3/uL (0.0-0.1); BASO % 0.9 % (0.0-1.0); EOS # 0.1 10*3/uL (0.0-0.4); HEMATOCRIT 47.8 % (42.0-52.0); LYMPH # 1.8 10*3/uL (1.3-4.4); LYMPH % 33.6 % (27.0-41.0); MEAN CELL VOLUME 97.4 fl (80.0-94.0); MEAN CORPUSCULAR HGB 31.8 pg (27.0-31.0); MEAN CORPUSCULAR HGB CONC 32.6 g/dl (33.0-37.0); MEAN PLATELET VOLUME 9.3 fl (9.6-12.3); MONO # 0.5 10*3/uL (0.1-1.0); MONO % 9.3 % (3.0-9.0); NEUT # 2.9 10*3/uL (2.3-7.9); PLATELET COUNT AUTOMATED 176 10*3/uL (130-400); RED BLOOD COUNT 4.91 10*6/uL (4.50-5.90); RED CELL DISTRI WIDTH 13.7 % (0-14.5); WHITE BLOOD COUNT 5.4 10*3/uL (4.8-10.8)
[2020-03-14 06:21] LABS: INTERNATIONAL NORM RATIO 0.9 (2.0-3.5)
[2020-03-14 06:24] LABS: ALBUMIN 3.3 gm/dl (3.1-4.5); BUN 9 mg/dl (7-24); CHLORIDE 100 mmol/L (98-107); CREATININE 0.81 mg/dL (0.70-1.30); POTASSIUM 3.6 mmol/L (3.5-5.1); SGOT/AST 101 IU/L (3-35); SGPT/ALT 106 U/L (12-78); SODIUM 138 mmol/L (136-145)
[2020-03-14 06:34] LABS: ALKALINE PHOSPHATASE 70 U/L (45-117); TOTAL PROTEIN 6.9 gm/dL (6.4-8.2)
[2020-03-14 08:00] VITALS: BP 120/87
[2020-03-14 12:00] VITALS: BP 140/70
[2020-03-14 16:00] VITALS: BP 120/76
[2020-03-14 20:00] VITALS: BP 145/89
[2020-03-15] VITALS: BP 153/97
[2020-03-15 05:55] LABS: ALBUMIN 3.3 gm/dl (3.1-4.5); ALKALINE PHOSPHATASE 70 U/L (45-117); BUN 11 mg/dl (7-24); CHLORIDE 101 mmol/L (98-107); CREATININE 0.87 mg/dL (0.70-1.30); POTASSIUM 3.6 mmol/L (3.5-5.1); SGOT/AST 68 IU/L (3-35); SGPT/ALT 85 U/L (12-78); SODIUM 135 mmol/L (136-145)
[2020-03-15 06:21] LABS: BASO % 0.5 % (0.0-1.0); EOS # 0.2 10*3/uL (0.0-0.4); EOS % 3.1 % (1.0-4.0); HEMATOCRIT 42.9 % (42.0-52.0); LYMPH # 1.1 10*3/uL (1.3-4.4); LYMPH % 19.6 % (27.0-41.0); MEAN CORPUSCULAR HGB 31.6 pg (27.0-31.0); MEAN CORPUSCULAR HGB CONC 33.6 g/dl (33.0-37.0); MEAN PLATELET VOLUME 10.4 fl (9.6-12.3); MONO # 0.5 10*3/uL (0.1-1.0); MONO % 8.8 % (3.0-9.0); NEUT # 3.8 10*3/uL (2.3-7.9); NEUT % 67.8 % (47.0-73.0); RED BLOOD COUNT 4.55 10*6/uL (4.50-5.90); RED CELL DISTRI WIDTH 12.6 % (0-14.5); WHITE BLOOD COUNT 5.6 10*3/uL (4.8-10.8)
[2020-03-15 07:20] LABS: MEAN CELL VOLUME 94.3 fl (80.0-94.0); PLATELET COUNT AUTOMATED 105 10*3/uL (130-400)
[2020-03-15 08:00] VITALS: BP 137/92
[2020-03-15] MEDS ORDERED: VITAMIN D350 MC2 PO ×2 (11:28)
[2020-05-14] MEDS ORDERED: PRILOSEC20 M1 PO (16:35)
[2020-05-14] MEDS ORDERED: LEXAPRO5 M1 PO (16:36)
[2020-05-14] MEDS ORDERED: LISINOPRIL10 M1 PO (16:36)
== END 2020-03-15 11:48 | disposition home or self-care (01) | DRG 775 ==
LOC: ED 19:23 → EDHOLD 21:56 → ICCU 21:56
PROVIDERS: Emergency Medicine; Internal Medicine; Student in an Organized Health Care Education/Training Program; ADMIT Internal Medicine; ATTEND Internal Medicine
DX: F10.929 Alcohol use, unspecified with intoxication, unspecified (principal); E87.2 Acidosis; D75.89 Other specified diseases of blood and blood-forming organs; F90.9 Attention-deficit hyperactivity disorder, unspecified type; K76.0 Fatty (change of) liver, not elsewhere classified; R74.01 Elevation of levels of liver transaminase levels; G47.00 Insomnia, unspecified; I10 Essential (primary) hypertension; F17.210 Nicotine dependence, cigarettes, uncomplicated; E87.1 Hypo-osmolality and hyponatremia; E83.42 Hypomagnesemia; R73.9 Hyperglycemia, unspecified; E83.51 Hypocalcemia; R74.8 Abnormal levels of other serum enzymes; E66.09 Other obesity due to excess calories; Z68.38 Body mass index [BMI] 38.0-38.9, adult; Z83.3 Family history of diabetes mellitus; Z82.49 Family history of ischemic heart disease and other diseases of the circulatory system

== ENCOUNTER 2020-03-17 22:27 | Emergency (ER) | payer OTHER ==
[~2020-03-17] VITALS: Ht 172.7 cm; Wt 136.1 kg
[2020-03-17 23:12] LABS: BASO # 0.1 10*3/uL (0.0-0.1); BASO % 0.9 % (0.0-1.0); EOS # 0.5 10*3/uL (0.0-0.4); EOS % 4.9 % (1.0-4.0); HEMATOCRIT 47.4 % (42.0-52.0); LYMPH # 2.9 10*3/uL (1.3-4.4); MEAN CELL VOLUME 97.9 fl (80.0-94.0); MEAN CORPUSCULAR HGB CONC 32.7 g/dl (33.0-37.0); MEAN PLATELET VOLUME 9.5 fl (9.6-12.3); MONO # 0.9 10*3/uL (0.1-1.0); NEUT # 5.8 10*3/uL (2.3-7.9); NEUT % 56.8 % (47.0-73.0); PLATELET COUNT AUTOMATED 153 10*3/uL (130-400); RED BLOOD COUNT 4.84 10*6/uL (4.50-5.90); RED CELL DISTRI WIDTH 13.1 % (0-14.5); WHITE BLOOD COUNT 10.2 10*3/uL (4.8-10.8)
[2020-03-17 23:29] LABS: ALBUMIN 3.6 gm/dl (3.1-4.5); ALKALINE PHOSPHATASE 91 U/L (45-117); BUN 14 mg/dl (7-24); CHLORIDE 110 mmol/L (98-107); CREATININE 1.05 mg/dL (0.70-1.30); POTASSIUM 3.7 mmol/L (3.5-5.1); SGOT/AST 405 IU/L (3-35); SGPT/ALT 482 U/L (12-78); SODIUM 143 mmol/L (136-145); TOTAL PROTEIN 7.3 gm/dL (6.4-8.2)
[2020-05-14] MEDS ORDERED: PRILOSEC20 M1 PO (16:35)
[2020-05-14] MEDS ORDERED: LISINOPRIL10 M1 PO (16:36)
[2020-05-14] MEDS ORDERED: LEXAPRO5 M1 PO (16:36)
== END 2020-03-18 09:23 | disposition home or self-care (01) ==
LOC: ED 22:27
PROVIDERS: Emergency Medicine
DX: F10.920 Alcohol use, unspecified with intoxication, uncomplicated (principal); E66.9 Obesity, unspecified; F90.9 Attention-deficit hyperactivity disorder, unspecified type; I10 Essential (primary) hypertension; F17.210 Nicotine dependence, cigarettes, uncomplicated; Z79.899 Other long term (current) drug therapy

== ENCOUNTER 2020-04-08 14:04 | Inpatient (IN) | payer OTHER ==
[~2020-04-08] VITALS: Ht 185.4 cm; Wt 122.8 kg
[2020-04-08 14:13] VITALS: BP 144/99
[2020-04-08 14:46] LABS: BASO # 0.1 10*3/uL (0.0-0.1); BASO % 0.8 % (0.0-1.0); EOS # 0.2 10*3/uL (0.0-0.4); EOS % 2.9 % (1.0-4.0); HEMATOCRIT 46.6 % (42.0-52.0); LYMPH # 2.6 10*3/uL (1.3-4.4); LYMPH % 41.5 % (27.0-41.0); MEAN CELL VOLUME 90.7 fl (80.0-94.0); MEAN CORPUSCULAR HGB 31.3 pg (27.0-31.0); MEAN CORPUSCULAR HGB CONC 34.5 g/dl (33.0-37.0); MEAN PLATELET VOLUME 9.7 fl (9.6-12.3); MONO # 0.5 10*3/uL (0.1-1.0); MONO % 7.6 % (3.0-9.0); NEUT # 2.9 10*3/uL (2.3-7.9); PLATELET COUNT AUTOMATED 164 10*3/uL (130-400); RED BLOOD COUNT 5.14 10*6/uL (4.50-5.90); RED CELL DISTRI WIDTH 11.9 % (0-14.5); WHITE BLOOD COUNT 6.2 10*3/uL (4.8-10.8)
[2020-04-08 14:56] LABS: ACT PARTIAL THROMBO TIME 25.9 SECONDS (20.0-32.1); INTERNATIONAL NORM RATIO 0.9 (2.0-3.5)
[2020-04-08 15:01] LABS: ALBUMIN 3.8 gm/dl (3.1-4.5); ALKALINE PHOSPHATASE 95 U/L (45-117); BUN 11 mg/dl (7-24); CHLORIDE 96 mmol/L (98-107); CREATININE 1.01 mg/dL (0.70-1.30); LIPASE 409 U/L (73-393); POTASSIUM 3.1 mmol/L (3.5-5.1); SGOT/AST 227 IU/L (3-35); SGPT/ALT 188 U/L (12-78); SODIUM 136 mmol/L (136-145); TOTAL PROTEIN 8.2 gm/dL (6.4-8.2)
[2020-04-08 15:03] LABS: TROPONIN I < 0.015 ng/ml (<0.045)
[2020-04-08 15:54] VITALS: BP 132/77
[2020-04-08 18:21] VITALS: BP 136/82
[2020-04-08 21:47] VITALS: BP 132/75
[2020-04-09 01:31] LABS: BILIRUBIN Negative (Negative); BLOOD Negative (Negative); CLARITY Clear (Clear); COLOR Yellow (Yellow); GLUCOSE Negative (Negative); KETONE 1+ (Negative); LEUKO ESTERASE Negative (Negative); NITRITE Negative (Negative); SPECIFIC GRAVITY 1.015 (1.001-1.030)
[2020-04-09 01:40] LABS: URINE AMPHETAMINES < 1000 (1000ng/ml); URINE BARBITURATES > 200 (200ng/ml); URINE BENZODIAZEPINES > 200 (200ng/ml); URINE CANNABINOIDS (THC) < 50 (50ng/ml); URINE COCAINE < 300 (300ng/ml); URINE METHADONE < 300 (300ng/ml); URINE OPIATES < 300 (300ng/ml); URINE PHENCYCLIDINE < 25 (25ng/ml)
[2020-04-09 01:44] LABS: WBC 0-2 wbc/hpf (0-5)
[2020-04-09 05:27] LABS: BUN 9 mg/dl (7-24); CHLORIDE 96 mmol/L (98-107); POTASSIUM 3.7 mmol/L (3.5-5.1); SODIUM 133 mmol/L (136-145)
[2020-04-09 06:33] LABS: BASO % 0.7 % (0.0-1.0); EOS # 0.1 10*3/uL (0.0-0.4); EOS % 3.4 % (1.0-4.0); HEMATOCRIT 41.9 % (42.0-52.0); LYMPH # 1.2 10*3/uL (1.3-4.4); LYMPH % 28.1 % (27.0-41.0); MEAN CELL VOLUME 92.7 fl (80.0-94.0); MEAN CORPUSCULAR HGB 31.6 pg (27.0-31.0); MEAN CORPUSCULAR HGB CONC 34.1 g/dl (33.0-37.0); MEAN PLATELET VOLUME 11.1 fl (9.6-12.3); MONO # 0.3 10*3/uL (0.1-1.0); MONO % 6.8 % (3.0-9.0); NEUT # 2.5 10*3/uL (2.3-7.9); NEUT % 60.8 % (47.0-73.0); RED BLOOD COUNT 4.52 10*6/uL (4.50-5.90); RED CELL DISTRI WIDTH 11.9 % (0-14.5); WHITE BLOOD COUNT 4.1 10*3/uL (4.8-10.8)
[2020-04-09 06:58] LABS: PLATELET COUNT AUTOMATED 107 10*3/uL (130-400)
[2020-04-09 09:53] VITALS: BP 166/99
[2020-04-09 13:18] VITALS: BP 158/101
[2020-04-09 18:33] VITALS: BP 158/93
[2020-04-09 20:00] VITALS: BP 150/90; BP 170/98
[2020-04-09 21:50] VITALS: BP 129/72
[2020-04-10] VITALS: BP 143/96
[2020-04-10 04:00] VITALS: BP 124/98
[2020-04-10 06:19] LABS: BASO % 0.7 % (0.0-1.0); EOS # 0.3 10*3/uL (0.0-0.4); EOS % 5.7 % (1.0-4.0); HEMATOCRIT 43.5 % (42.0-52.0); LYMPH # 0.9 10*3/uL (1.3-4.4); LYMPH % 20.2 % (27.0-41.0); MEAN CELL VOLUME 93.3 fl (80.0-94.0); MEAN CORPUSCULAR HGB 31.3 pg (27.0-31.0); MEAN CORPUSCULAR HGB CONC 33.6 g/dl (33.0-37.0); MEAN PLATELET VOLUME 11.1 fl (9.6-12.3); MONO # 0.3 10*3/uL (0.1-1.0); MONO % 6.4 % (3.0-9.0); NEUT % 66.1 % (47.0-73.0); PLATELET COUNT AUTOMATED 83 10*3/uL (130-400); RED BLOOD COUNT 4.66 10*6/uL (4.50-5.90); RED CELL DISTRI WIDTH 11.8 % (0-14.5); WHITE BLOOD COUNT 4.6 10*3/uL (4.8-10.8)
[2020-04-10 06:29] LABS: CHLORIDE 95 mmol/L (98-107); POTASSIUM 3.6 mmol/L (3.5-5.1); SODIUM 131 mmol/L (136-145)
[2020-04-10 06:36] LABS: BUN 11 mg/dl (7-24); CREATININE 0.91 mg/dL (0.70-1.30)
[2020-04-10 08:00] VITALS: BP 129/90
[2020-04-10 12:00] VITALS: BP 111/90
[2020-04-10 16:00] VITALS: BP 126/95
[2020-04-10 20:00] VITALS: BP 112/76
[2020-04-11] VITALS: BP 120/65
[2020-04-11 07:09] LABS: BUN 18 mg/dl (7-24); CHLORIDE 101 mmol/L (98-107); CREATININE 0.85 mg/dL (0.70-1.30); POTASSIUM 3.9 mmol/L (3.5-5.1); SODIUM 134 mmol/L (136-145)
[2020-04-11 08:00] VITALS: BP 126/90
[2020-04-11 12:00] VITALS: BP 130/88
[2020-05-14] MEDS ORDERED: PRILOSEC20 M1 PO (16:35)
[2020-05-14] MEDS ORDERED: LEXAPRO5 M1 PO (16:36)
[2020-05-14] MEDS ORDERED: LISINOPRIL10 M1 PO (16:36)
== END 2020-04-11 13:09 | disposition home or self-care (01) | DRG 775 ==
LOC: ED 14:04 → ICCU 17:11 → EDHOLD 17:11 → ICCU 04-09 17:47 → 5E 04-10 14:20
PROVIDERS: Emergency Medicine; Internal Medicine; ADMIT Internal Medicine; ATTEND Internal Medicine
DX: F10.921 Alcohol use, unspecified with intoxication delirium (principal); E87.6 Hypokalemia; E87.2 Acidosis; R74.01 Elevation of levels of liver transaminase levels; F90.9 Attention-deficit hyperactivity disorder, unspecified type; E87.1 Hypo-osmolality and hyponatremia; D69.6 Thrombocytopenia, unspecified; F12.90 Cannabis use, unspecified, uncomplicated; F17.210 Nicotine dependence, cigarettes, uncomplicated; I10 Essential (primary) hypertension; E66.9 Obesity, unspecified; Y90.8 Blood alcohol level of 240 mg/100 ml or more; R00.0 Tachycardia, unspecified; E87.8 Other disorders of electrolyte and fluid balance, not elsewhere classified; E83.42 Hypomagnesemia; R74.8 Abnormal levels of other serum enzymes; R17 Unspecified jaundice; E83.39 Other disorders of phosphorus metabolism; Z83.3 Family history of diabetes mellitus; Z82.49 Family history of ischemic heart disease and other diseases of the circulatory system; Z79.899 Other long term (current) drug therapy; Z68.35 Body mass index [BMI] 35.0-35.9, adult

== ENCOUNTER 2020-05-18 22:29 | Inpatient (IN) | payer OTHER ==
[~2020-05-18] VITALS: Ht 188 cm; Wt 126.2 kg
[~2020-05-18 22:29] MED LIST changes: +LEXAPRO5 M1 PO; +LISINOPRIL10 M1 PO; +PRILOSEC20 M1 PO
[2020-05-18 22:31] VITALS: BP 152/100
[2020-05-18 22:48] LABS: BASO # 0.1 10*3/uL (0.0-0.1); BASO % 0.7 % (0.0-1.0); EOS # 0.1 10*3/uL (0.0-0.4); EOS % 0.7 % (1.0-4.0); HEMATOCRIT 50.8 % (42.0-52.0); LYMPH # 2.6 10*3/uL (1.3-4.4); LYMPH % 35.9 % (27.0-41.0); MEAN CORPUSCULAR HGB 31.3 pg (27.0-31.0); MEAN CORPUSCULAR HGB CONC 33.7 g/dl (33.0-37.0); MEAN PLATELET VOLUME 8.9 fl (9.6-12.3); MONO # 0.6 10*3/uL (0.1-1.0); NEUT % 54.6 % (47.0-73.0); PLATELET COUNT AUTOMATED 162 10*3/uL (130-400); RED BLOOD COUNT 5.46 10*6/uL (4.50-5.90); RED CELL DISTRI WIDTH 12.5 % (0-14.5); WHITE BLOOD COUNT 7.3 10*3/uL (4.8-10.8)
[2020-05-18 23:04] LABS: ALBUMIN 3.8 gm/dl (3.1-4.5); ALKALINE PHOSPHATASE 90 U/L (45-117); BUN 11 mg/dl (7-24); CHLORIDE 103 mmol/L (98-107); CREATININE 1.05 mg/dL (0.70-1.30); POTASSIUM 3.8 mmol/L (3.5-5.1); SGOT/AST 144 IU/L (3-35); SGPT/ALT 97 U/L (12-78); SODIUM 139 mmol/L (136-145); TOTAL PROTEIN 7.7 gm/dL (6.4-8.2)
[2020-05-19 00:14] LABS: URINE AMPHETAMINES < 1000 (1000ng/ml); URINE BARBITURATES < 200 (200ng/ml); URINE BENZODIAZEPINES < 200 (200ng/ml); URINE CANNABINOIDS (THC) < 50 (50ng/ml); URINE COCAINE < 300 (300ng/ml); URINE METHADONE < 300 (300ng/ml); URINE OPIATES < 300 (300ng/ml)
[2020-05-19 00:15] VITALS: BP 145/96
[2020-05-19 00:20] LABS: URINE PHENCYCLIDINE < 25 (25ng/ml)
[2020-05-19 04:00] VITALS: BP 128/80
[2020-05-19 06:01] LABS: ALBUMIN 3.5 gm/dl (3.1-4.5); ALKALINE PHOSPHATASE 77 U/L (45-117); BUN 9 mg/dl (7-24); CHLORIDE 104 mmol/L (98-107); CREATININE 0.79 mg/dL (0.70-1.30); POTASSIUM 3.8 mmol/L (3.5-5.1); SGOT/AST 148 IU/L (3-35); SGPT/ALT 95 U/L (12-78); SODIUM 140 mmol/L (136-145); TOTAL PROTEIN 7.3 gm/dL (6.4-8.2)
[2020-05-19 06:17] LABS: BASO % 0.7 % (0.0-1.0); EOS # 0.1 10*3/uL (0.0-0.4); EOS % 1.3 % (1.0-4.0); HEMATOCRIT 47.5 % (42.0-52.0); LYMPH # 2.5 10*3/uL (1.3-4.4); LYMPH % 40.3 % (27.0-41.0); MEAN CELL VOLUME 92.6 fl (80.0-94.0); MEAN CORPUSCULAR HGB 31.4 pg (27.0-31.0); MEAN CORPUSCULAR HGB CONC 33.9 g/dl (33.0-37.0); MEAN PLATELET VOLUME 9.4 fl (9.6-12.3); MONO # 0.4 10*3/uL (0.1-1.0); MONO % 6.5 % (3.0-9.0); NEUT # 3.1 10*3/uL (2.3-7.9); NEUT % 50.9 % (47.0-73.0); PLATELET COUNT AUTOMATED 151 10*3/uL (130-400); RED BLOOD COUNT 5.13 10*6/uL (4.50-5.90); RED CELL DISTRI WIDTH 12.6 % (0-14.5); WHITE BLOOD COUNT 6.1 10*3/uL (4.8-10.8)
[2020-05-19 08:00] VITALS: BP 126/69
[2020-05-19 16:00] VITALS: BP 127/68
[2020-05-19 20:00] VITALS: BP 168/92
[2020-05-20] VITALS: BP 160/88
[2020-05-20 04:00] VITALS: BP 144/90
[2020-05-20 06:16] LABS: BASO % 0.5 % (0.0-1.0); EOS # 0.1 10*3/uL (0.0-0.4); EOS % 1.4 % (1.0-4.0); HEMATOCRIT 40.3 % (42.0-52.0); LYMPH # 0.8 10*3/uL (1.3-4.4); LYMPH % 17.9 % (27.0-41.0); MEAN CELL VOLUME 91.2 fl (80.0-94.0); MEAN CORPUSCULAR HGB 31.7 pg (27.0-31.0); MEAN CORPUSCULAR HGB CONC 34.7 g/dl (33.0-37.0); MEAN PLATELET VOLUME 10.1 fl (9.6-12.3); MONO # 0.3 10*3/uL (0.1-1.0); MONO % 7.7 % (3.0-9.0); NEUT % 72.3 % (47.0-73.0); RED BLOOD COUNT 4.42 10*6/uL (4.50-5.90); RED CELL DISTRI WIDTH 12.4 % (0-14.5); WHITE BLOOD COUNT 4.2 10*3/uL (4.8-10.8)
[2020-05-20 06:17] LABS: ALBUMIN 3.4 gm/dl (3.1-4.5); ALKALINE PHOSPHATASE 72 U/L (45-117); BUN 11 mg/dl (7-24); CHLORIDE 100 mmol/L (98-107); CREATININE 0.71 mg/dL (0.70-1.30); POTASSIUM 3.6 mmol/L (3.5-5.1); SGOT/AST 93 IU/L (3-35); SGPT/ALT 83 U/L (12-78); SODIUM 134 mmol/L (136-145); TOTAL PROTEIN 6.8 gm/dL (6.4-8.2)
[2020-05-20 06:23] LABS: PLATELET COUNT AUTOMATED 75 10*3/uL (130-400)
[2020-05-20 08:00] VITALS: BP 140/93
== END 2020-05-20 09:58 | disposition home or self-care (01) | DRG 775 ==
LOC: ED 22:29 → EDHOLD 23:46 → ICCU 05-19 00:08
PROVIDERS: Hospitalist; Internal Medicine; ADMIT Internal Medicine; ATTEND Internal Medicine
DX: F10.129 Alcohol abuse with intoxication, unspecified (principal); R74.01 Elevation of levels of liver transaminase levels; R00.0 Tachycardia, unspecified; F90.9 Attention-deficit hyperactivity disorder, unspecified type; R73.9 Hyperglycemia, unspecified; I10 Essential (primary) hypertension; F17.210 Nicotine dependence, cigarettes, uncomplicated; Z82.49 Family history of ischemic heart disease and other diseases of the circulatory system; Z83.3 Family history of diabetes mellitus; Z81.3 Family history of other psychoactive substance abuse and dependence; Z79.899 Other long term (current) drug therapy

== ENCOUNTER 2020-05-24 04:18 | Inpatient (IN) | payer OTHER ==
[~2020-05-24] VITALS: Ht 185.4 cm; Wt 129.0 kg
[2020-05-24 04:21] VITALS: BP 174/113
[2020-05-24 04:40] LABS: BASO % 0.9 % (0.0-1.0); EOS # 0.1 10*3/uL (0.0-0.4); EOS % 1.3 % (1.0-4.0); HEMATOCRIT 43.6 % (42.0-52.0); LYMPH # 1.3 10*3/uL (1.3-4.4); LYMPH % 27.9 % (27.0-41.0); MEAN CELL VOLUME 91.8 fl (80.0-94.0); MEAN CORPUSCULAR HGB 31.2 pg (27.0-31.0); MEAN CORPUSCULAR HGB CONC 33.9 g/dl (33.0-37.0); MEAN PLATELET VOLUME 8.8 fl (9.6-12.3); MONO # 0.4 10*3/uL (0.1-1.0); MONO % 9.4 % (3.0-9.0); NEUT # 2.8 10*3/uL (2.3-7.9); NEUT % 60.1 % (47.0-73.0); PLATELET COUNT AUTOMATED 112 10*3/uL (130-400); RED BLOOD COUNT 4.75 10*6/uL (4.50-5.90); RED CELL DISTRI WIDTH 13.1 % (0-14.5); WHITE BLOOD COUNT 4.7 10*3/uL (4.8-10.8)
[2020-05-24 04:55] LABS: ALBUMIN 3.7 gm/dl (3.1-4.5); ALKALINE PHOSPHATASE 82 U/L (45-117); BUN 9 mg/dl (7-24); CHLORIDE 103 mmol/L (98-107); CREATININE 0.96 mg/dL (0.70-1.30); POTASSIUM 3.4 mmol/L (3.5-5.1); SGOT/AST 254 IU/L (3-35); SGPT/ALT 270 U/L (12-78); SODIUM 138 mmol/L (136-145); TOTAL PROTEIN 7.6 gm/dL (6.4-8.2)
[2020-05-24 05:02] VITALS: BP 161/90
[2020-05-24 07:33] VITALS: BP 153/81
[2020-05-24 12:00] VITALS: BP 143/97
[2020-05-24 15:52] VITALS: BP 147/97
[2020-05-24 20:00] VITALS: BP 147/979
[2020-05-25] VITALS: BP 166/98
[2020-05-25 04:00] VITALS: BP 151/90
[2020-05-25 05:01] LABS: ACT PARTIAL THROMBO TIME 27.6 SECONDS (20.0-32.1)
[2020-05-25 05:08] LABS: ALBUMIN 3.4 gm/dl (3.1-4.5); ALKALINE PHOSPHATASE 73 U/L (45-117); BUN 8 mg/dl (7-24); CHLORIDE 99 mmol/L (98-107); POTASSIUM 3.8 mmol/L (3.5-5.1); SGOT/AST 123 IU/L (3-35); SGPT/ALT 184 U/L (12-78); SODIUM 135 mmol/L (136-145); TOTAL PROTEIN 6.8 gm/dL (6.4-8.2)
[2020-05-25 05:11] LABS: BASO % 0.5 % (0.0-1.0); EOS # 0.1 10*3/uL (0.0-0.4); EOS % 1.2 % (1.0-4.0); HEMATOCRIT 38.9 % (42.0-52.0); LYMPH # 0.7 10*3/uL (1.3-4.4); LYMPH % 16.9 % (27.0-41.0); MEAN CELL VOLUME 91.1 fl (80.0-94.0); MEAN CORPUSCULAR HGB 31.6 pg (27.0-31.0); MEAN CORPUSCULAR HGB CONC 34.7 g/dl (33.0-37.0); MEAN PLATELET VOLUME 10.2 fl (9.6-12.3); MONO # 0.5 10*3/uL (0.1-1.0); MONO % 12.7 % (3.0-9.0); NEUT # 2.8 10*3/uL (2.3-7.9); NEUT % 68.5 % (47.0-73.0); RED BLOOD COUNT 4.27 10*6/uL (4.50-5.90); RED CELL DISTRI WIDTH 12.8 % (0-14.5)
[2020-05-25 05:36] LABS: PLATELET COUNT AUTOMATED 75 10*3/uL (130-400)
[2020-05-25 08:00] VITALS: BP 160/110
== END 2020-05-25 12:10 | disposition home or self-care (01) | DRG 775 ==
LOC: ED 04:18 → EDHOLD 05:46 → ICCU 05:46 → EDHOLD 05:59 → ICCU 06:06
PROVIDERS: Internal Medicine; ADMIT Student in an Organized Health Care Education/Training Program; ATTEND Student in an Organized Health Care Education/Training Program
DX: F10.132 Alcohol abuse with withdrawal with perceptual disturbance (principal); F10.121 Alcohol abuse with intoxication delirium; Y90.8 Blood alcohol level of 240 mg/100 ml or more; F90.9 Attention-deficit hyperactivity disorder, unspecified type; D72.819 Decreased white blood cell count, unspecified; R74.01 Elevation of levels of liver transaminase levels; K76.0 Fatty (change of) liver, not elsewhere classified; F10.131 Alcohol abuse with withdrawal delirium; R73.9 Hyperglycemia, unspecified; E87.6 Hypokalemia; E55.9 Vitamin D deficiency, unspecified; G47.00 Insomnia, unspecified; I10 Essential (primary) hypertension; F17.210 Nicotine dependence, cigarettes, uncomplicated; Z71.6 Tobacco abuse counseling; Z83.3 Family history of diabetes mellitus; Z82.49 Family history of ischemic heart disease and other diseases of the circulatory system; Z81.3 Family history of other psychoactive substance abuse and dependence; Z79.899 Other long term (current) drug therapy

== ENCOUNTER 2020-05-27 20:14 | Inpatient (IN) | payer OTHER ==
[~2020-05-27] VITALS: Ht 185.4 cm; Wt 122.2 kg
[2020-05-27 20:29] VITALS: BP 152/103
[2020-05-27 20:30] LABS: BASO # 0.1 10*3/uL (0.0-0.1); BASO % 1.2 % (0.0-1.0); EOS # 0.2 10*3/uL (0.0-0.4); EOS % 2.7 % (1.0-4.0); HEMATOCRIT 44.8 % (42.0-52.0); LYMPH # 3.7 10*3/uL (1.3-4.4); LYMPH % 48.3 % (27.0-41.0); MEAN CELL VOLUME 96.6 fl (80.0-94.0); MEAN CORPUSCULAR HGB 31.9 pg (27.0-31.0); MEAN PLATELET VOLUME 9.1 fl (9.6-12.3); MONO # 0.7 10*3/uL (0.1-1.0); MONO % 8.5 % (3.0-9.0); NEUT # 2.9 10*3/uL (2.3-7.9); NEUT % 38.5 % (47.0-73.0); PLATELET COUNT AUTOMATED 153 10*3/uL (130-400); RED BLOOD COUNT 4.64 10*6/uL (4.50-5.90); RED CELL DISTRI WIDTH 14.2 % (0-14.5); WHITE BLOOD COUNT 7.6 10*3/uL (4.8-10.8)
[2020-05-27 20:45] LABS: ALBUMIN 3.5 gm/dl (3.1-4.5); ALKALINE PHOSPHATASE 75 U/L (45-117); BUN 7 mg/dl (7-24); CHLORIDE 110 mmol/L (98-107); POTASSIUM 3.8 mmol/L (3.5-5.1); SGOT/AST 214 IU/L (3-35); SGPT/ALT 257 U/L (12-78); SODIUM 143 mmol/L (136-145); TOTAL PROTEIN 7.2 gm/dL (6.4-8.2)
[2020-05-28 01:54] VITALS: BP 111/59
[2020-05-28 06:12] LABS: ALBUMIN 3.4 gm/dl (3.1-4.5); BASO # 0.1 10*3/uL (0.0-0.1); BASO % 1.5 % (0.0-1.0); BUN 7 mg/dl (7-24); CHLORIDE 108 mmol/L (98-107); EOS # 0.2 10*3/uL (0.0-0.4); EOS % 3.2 % (1.0-4.0); HEMATOCRIT 42.7 % (42.0-52.0); LYMPH # 2.1 10*3/uL (1.3-4.4); MEAN CELL VOLUME 97.7 fl (80.0-94.0); MEAN CORPUSCULAR HGB 31.6 pg (27.0-31.0); MEAN CORPUSCULAR HGB CONC 32.3 g/dl (33.0-37.0); MEAN PLATELET VOLUME 9.1 fl (9.6-12.3); MONO # 0.5 10*3/uL (0.1-1.0); MONO % 8.9 % (3.0-9.0); NEUT # 2.4 10*3/uL (2.3-7.9); NEUT % 46.4 % (47.0-73.0); PLATELET COUNT AUTOMATED 152 10*3/uL (130-400); POTASSIUM 3.9 mmol/L (3.5-5.1); RED BLOOD COUNT 4.37 10*6/uL (4.50-5.90); RED CELL DISTRI WIDTH 14.2 % (0-14.5); SGOT/AST 197 IU/L (3-35); SGPT/ALT 232 U/L (12-78); SODIUM 141 mmol/L (136-145); WHITE BLOOD COUNT 5.3 10*3/uL (4.8-10.8)
[2020-05-28 06:14] LABS: ALKALINE PHOSPHATASE 71 U/L (45-117); CREATININE 0.77 mg/dL (0.70-1.30); TOTAL PROTEIN 6.9 gm/dL (6.4-8.2)
[2020-05-28 06:15] LABS: ACT PARTIAL THROMBO TIME 26.1 SECONDS (20.0-32.1)
[2020-05-28 06:25] VITALS: BP 136/93
[2020-05-28 07:29] VITALS: BP 143/93
== END 2020-05-28 09:16 | disposition left against medical advice (07) | DRG 770 ==
LOC: ED 20:14 → EDHOLD 22:57 → ICCU 05-28 07:32
PROVIDERS: Internal Medicine; ADMIT Internal Medicine; ATTEND Internal Medicine
DX: F10.239 Alcohol dependence with withdrawal, unspecified (principal); F17.210 Nicotine dependence, cigarettes, uncomplicated; R74.01 Elevation of levels of liver transaminase levels; Z68.36 Body mass index [BMI] 36.0-36.9, adult; Z53.29 Procedure and treatment not carried out because of patient's decision for other reasons; E87.8 Other disorders of electrolyte and fluid balance, not elsewhere classified; F90.9 Attention-deficit hyperactivity disorder, unspecified type; E55.9 Vitamin D deficiency, unspecified; K76.0 Fatty (change of) liver, not elsewhere classified; G47.00 Insomnia, unspecified; I10 Essential (primary) hypertension; Z82.49 Family history of ischemic heart disease and other diseases of the circulatory system; Z71.6 Tobacco abuse counseling; Z83.3 Family history of diabetes mellitus; R65.10 Systemic inflammatory response syndrome (SIRS) of non-infectious origin without acute organ dysfunction

== ENCOUNTER 2020-05-29 16:40 | Inpatient (IN) | payer OTHER ==
[~2020-05-29] VITALS: Ht 185.4 cm; Wt 123.8 kg
[2020-05-29 16:41] VITALS: BP 154/95
[2020-05-29 17:09] LABS: BASO # 0.1 10*3/uL (0.0-0.1); BASO % 1.3 % (0.0-1.0); EOS # 0.1 10*3/uL (0.0-0.4); EOS % 2.6 % (1.0-4.0); LYMPH # 1.9 10*3/uL (1.3-4.4); LYMPH % 40.5 % (27.0-41.0); MEAN CELL VOLUME 94.7 fl (80.0-94.0); MEAN CORPUSCULAR HGB 31.5 pg (27.0-31.0); MEAN CORPUSCULAR HGB CONC 33.3 g/dl (33.0-37.0); MEAN PLATELET VOLUME 8.5 fl (9.6-12.3); MONO # 0.6 10*3/uL (0.1-1.0); NEUT # 1.9 10*3/uL (2.3-7.9); PLATELET COUNT AUTOMATED 152 10*3/uL (130-400); RED BLOOD COUNT 4.54 10*6/uL (4.50-5.90); RED CELL DISTRI WIDTH 14.1 % (0-14.5); WHITE BLOOD COUNT 4.6 10*3/uL (4.8-10.8)
[2020-05-29 17:27] LABS: INTERNATIONAL NORM RATIO 0.9 (2.0-3.5)
[2020-05-29 17:28] LABS: ALBUMIN 3.7 gm/dl (3.1-4.5); ALKALINE PHOSPHATASE 79 U/L (45-117); BUN 7 mg/dl (7-24); CHLORIDE 110 mmol/L (98-107); CREATININE 0.94 mg/dL (0.70-1.30); LIPASE 529 U/L (73-393); POTASSIUM 3.7 mmol/L (3.5-5.1); SGOT/AST 167 IU/L (3-35); SGPT/ALT 208 U/L (12-78); SODIUM 144 mmol/L (136-145); TOTAL PROTEIN 7.5 gm/dL (6.4-8.2)
[2020-05-29 17:34] LABS: TROPONIN I < 0.015 ng/ml (<0.045)
[2020-05-29 18:32] VITALS: BP 144/110
[2020-05-29 19:34] VITALS: BP 134/81
[2020-05-29 20:45] VITALS: BP 134/87
[2020-05-30] VITALS: BP 125/86
[2020-05-30 04:30] VITALS: BP 128/65
[2020-05-30 05:03] LABS: ALBUMIN 3.2 gm/dl (3.1-4.5); ALKALINE PHOSPHATASE 64 U/L (45-117); BUN 7 mg/dl (7-24); CHLORIDE 108 mmol/L (98-107); CREATININE 0.77 mg/dL (0.70-1.30); POTASSIUM 3.6 mmol/L (3.5-5.1); SGOT/AST 100 IU/L (3-35); SGPT/ALT 152 U/L (12-78); SODIUM 142 mmol/L (136-145); TOTAL PROTEIN 6.2 gm/dL (6.4-8.2)
[2020-05-30 06:14] LABS: BASO # 0.1 10*3/uL (0.0-0.1); BASO % 1.4 % (0.0-1.0); EOS # 0.1 10*3/uL (0.0-0.4); EOS % 2.5 % (1.0-4.0); HEMATOCRIT 37.3 % (42.0-52.0); LYMPH # 1.4 10*3/uL (1.3-4.4); LYMPH % 38.9 % (27.0-41.0); MEAN CELL VOLUME 96.9 fl (80.0-94.0); MEAN CORPUSCULAR HGB 32.2 pg (27.0-31.0); MEAN CORPUSCULAR HGB CONC 33.2 g/dl (33.0-37.0); MEAN PLATELET VOLUME 9.2 fl (9.6-12.3); MONO # 0.4 10*3/uL (0.1-1.0); MONO % 12.2 % (3.0-9.0); NEUT # 1.6 10*3/uL (2.3-7.9); NEUT % 44.7 % (47.0-73.0); PLATELET COUNT AUTOMATED 115 10*3/uL (130-400); RED BLOOD COUNT 3.85 10*6/uL (4.50-5.90); WHITE BLOOD COUNT 3.6 10*3/uL (4.8-10.8)
[2020-05-30 06:18] LABS: ACT PARTIAL THROMBO TIME 27.7 SECONDS (20.0-32.1)
[2020-05-30 08:00] VITALS: BP 128/84
[2020-05-30 12:00] VITALS: BP 119/76
[2020-05-30 16:00] VITALS: BP 155/101
[2020-05-30 20:00] VITALS: BP 144/83
[2020-05-31] VITALS: BP 167/95
[2020-05-31 04:00] VITALS: BP 148/109
[2020-05-31 06:13] LABS: ALBUMIN 3.1 gm/dl (3.1-4.5); BUN 12 mg/dl (7-24); CHLORIDE 104 mmol/L (98-107); CREATININE 0.72 mg/dL (0.70-1.30); POTASSIUM 3.7 mmol/L (3.5-5.1); SGOT/AST 59 IU/L (3-35); SGPT/ALT 119 U/L (12-78); SODIUM 135 mmol/L (136-145); TOTAL PROTEIN 6.4 gm/dL (6.4-8.2)
[2020-05-31 06:14] LABS: ALKALINE PHOSPHATASE 70 U/L (45-117)
[2020-05-31 07:04] LABS: BASO % 0.9 % (0.0-1.0); EOS # 0.1 10*3/uL (0.0-0.4); EOS % 3.7 % (1.0-4.0); HEMATOCRIT 38.6 % (42.0-52.0); LYMPH # 0.9 10*3/uL (1.3-4.4); LYMPH % 28.4 % (27.0-41.0); MEAN CELL VOLUME 93.9 fl (80.0-94.0); MEAN CORPUSCULAR HGB 31.9 pg (27.0-31.0); MEAN CORPUSCULAR HGB CONC 33.9 g/dl (33.0-37.0); MEAN PLATELET VOLUME 10.3 fl (9.6-12.3); MONO # 0.5 10*3/uL (0.1-1.0); MONO % 14.9 % (3.0-9.0); NEUT # 1.7 10*3/uL (2.3-7.9); NEUT % 51.8 % (47.0-73.0); PLATELET COUNT AUTOMATED 119 10*3/uL (130-400); RED BLOOD COUNT 4.11 10*6/uL (4.50-5.90); WHITE BLOOD COUNT 3.3 10*3/uL (4.8-10.8)
[2020-05-31 08:00] VITALS: BP 159/100
== END 2020-05-31 11:34 | disposition home or self-care (01) | DRG 775 ==
LOC: ED 16:40 → ICCU 18:37 → EDHOLD 18:37 → ICCU 19:33
PROVIDERS: Emergency Medicine; Hospitalist; Internal Medicine; ADMIT Internal Medicine; ATTEND Internal Medicine
DX: F10.239 Alcohol dependence with withdrawal, unspecified (principal); F10.221 Alcohol dependence with intoxication delirium; Y90.8 Blood alcohol level of 240 mg/100 ml or more; F90.9 Attention-deficit hyperactivity disorder, unspecified type; E87.2 Acidosis; F17.210 Nicotine dependence, cigarettes, uncomplicated; K76.0 Fatty (change of) liver, not elsewhere classified; D72.819 Decreased white blood cell count, unspecified; E87.8 Other disorders of electrolyte and fluid balance, not elsewhere classified; R73.9 Hyperglycemia, unspecified; E55.9 Vitamin D deficiency, unspecified; G47.00 Insomnia, unspecified; R65.10 Systemic inflammatory response syndrome (SIRS) of non-infectious origin without acute organ dysfunction; Z82.49 Family history of ischemic heart disease and other diseases of the circulatory system; Z71.6 Tobacco abuse counseling; Z83.3 Family history of diabetes mellitus; Z68.36 Body mass index [BMI] 36.0-36.9, adult

== ENCOUNTER 2020-06-02 00:13 | Emergency (ER) | payer OTHER ==
[2020-06-02 00:55] LABS: BASO # 0.1 10*3/uL (0.0-0.1); BASO % 1.2 % (0.0-1.0); EOS # 0.2 10*3/uL (0.0-0.4); EOS % 2.3 % (1.0-4.0); HEMATOCRIT 44.7 % (42.0-52.0); LYMPH # 2.6 10*3/uL (1.3-4.4); LYMPH % 40.5 % (27.0-41.0); MEAN CORPUSCULAR HGB 32.2 pg (27.0-31.0); MEAN CORPUSCULAR HGB CONC 33.1 g/dl (33.0-37.0); MEAN PLATELET VOLUME 9.2 fl (9.6-12.3); MONO # 0.7 10*3/uL (0.1-1.0); MONO % 10.6 % (3.0-9.0); NEUT # 2.9 10*3/uL (2.3-7.9); NEUT % 44.5 % (47.0-73.0); RED BLOOD COUNT 4.59 10*6/uL (4.50-5.90); RED CELL DISTRI WIDTH 15.5 % (0-14.5); WHITE BLOOD COUNT 6.5 10*3/uL (4.8-10.8)
[2020-06-02 00:57] LABS: MEAN CELL VOLUME 97.4 fl (80.0-94.0); PLATELET COUNT AUTOMATED 181 10*3/uL (130-400)
[2020-06-02 01:05] LABS: ALBUMIN 3.6 gm/dl (3.1-4.5); ALKALINE PHOSPHATASE 73 U/L (45-117); BUN 7 mg/dl (7-24); CHLORIDE 108 mmol/L (98-107); CREATININE 0.87 mg/dL (0.70-1.30); POTASSIUM 4.2 mmol/L (3.5-5.1); SGOT/AST 263 IU/L (3-35); SGPT/ALT 252 U/L (12-78); SODIUM 143 mmol/L (136-145); TOTAL PROTEIN 7.3 gm/dL (6.4-8.2)
[2020-06-02 08:30] LABS: BILIRUBIN Negative (Negative); BLOOD Negative (Negative); CLARITY Clear (Clear); COLOR Yellow (Yellow); GLUCOSE Negative (Negative); KETONE Negative (Negative); LEUKO ESTERASE Negative (Negative); NITRITE Negative (Negative); SPECIFIC GRAVITY 1.015 (1.001-1.030); UROBILINOGEN 0.2 E.U./dl (0.0-1.0)
[2020-06-02 08:39] LABS: URINE AMPHETAMINES < 1000 (1000ng/ml); URINE BARBITURATES < 200 (200ng/ml); URINE BENZODIAZEPINES < 200 (200ng/ml); URINE CANNABINOIDS (THC) < 50 (50ng/ml); URINE COCAINE < 300 (300ng/ml); URINE METHADONE < 300 (300ng/ml); URINE OPIATES < 300 (300ng/ml)
[2020-06-02 08:46] LABS: BACTERIA TRACE; MUCOUS 1+; RBC 0-2 rbc/hpf (0-2); WBC 0-2 wbc/hpf (0-5)
[2020-06-02 08:47] LABS: URINE PHENCYCLIDINE < 25 (25ng/ml)
== END 2020-06-02 10:26 | disposition home or self-care (01) ==
LOC: ED 00:13
PROVIDERS: Emergency Medicine; Internal Medicine
DX: F10.129 Alcohol abuse with intoxication, unspecified (principal); F17.200 Nicotine dependence, unspecified, uncomplicated; Z98.890 Other specified postprocedural states; Y90.8 Blood alcohol level of 240 mg/100 ml or more

== ENCOUNTER 2020-06-13 12:16 | Emergency (ER) | payer OTHER ==
[~2020-06-13] VITALS: Ht 182.8 cm; Wt 113.4 kg
== END 2020-06-13 16:20 | disposition home or self-care (01) ==
LOC: ED 12:16
DX: F10.129 Alcohol abuse with intoxication, unspecified (principal); Z98.890 Other specified postprocedural states; Y90.8 Blood alcohol level of 240 mg/100 ml or more

== ENCOUNTER 2020-06-22 22:47 | Emergency (ER) | payer OTHER ==
[~2020-06-22] VITALS: Ht 187.9 cm; Wt 127.0 kg
[2020-06-28] MEDS ORDERED: OMEPRAZOLE MAGN20 MG PO (02:43)
[2020-06-28] MEDS ORDERED: LISINOPRIL10 M1 PO (02:43)
== END 2020-06-23 00:30 | disposition left against medical advice (07) ==
LOC: ED 22:47
DX: F10.20 Alcohol dependence, uncomplicated (principal); F17.200 Nicotine dependence, unspecified, uncomplicated

== ENCOUNTER 2020-07-05 19:14 | Emergency (ER) | payer OTHER ==
[~2020-07-05] VITALS: Ht 187.9 cm; Wt 142.9 kg
[~2020-07-05 19:14] MED LIST changes: +OMEPRAZOLE MAGN20 MG PO
[2020-07-05 19:42] LABS: BASO # 0.1 10*3/uL (0.0-0.1); BASO % 1.4 % (0.0-1.0); EOS # 0.1 10*3/uL (0.0-0.4); EOS % 1.2 % (1.0-4.0); HEMATOCRIT 45.3 % (42.0-52.0); LYMPH % 40.7 % (27.0-41.0); MEAN CELL VOLUME 95.2 fl (80.0-94.0); MEAN CORPUSCULAR HGB 32.1 pg (27.0-31.0); MEAN CORPUSCULAR HGB CONC 33.8 g/dl (33.0-37.0); MEAN PLATELET VOLUME 8.7 fl (9.6-12.3); MONO # 0.7 10*3/uL (0.1-1.0); MONO % 14.2 % (3.0-9.0); NEUT % 41.9 % (47.0-73.0); PLATELET COUNT AUTOMATED 315 10*3/uL (130-400); RED BLOOD COUNT 4.76 10*6/uL (4.50-5.90); RED CELL DISTRI WIDTH 12.9 % (0-14.5); WHITE BLOOD COUNT 4.9 10*3/uL (4.8-10.8)
[2020-07-05 19:57] LABS: ALBUMIN 4.3 gm/dl (3.1-4.5); ALKALINE PHOSPHATASE 100 U/L (45-117); BUN 16 mg/dl (7-24); CHLORIDE 106 mmol/L (98-107); CREATININE 1.24 mg/dL (0.70-1.30); POTASSIUM 4.4 mmol/L (3.5-5.1); SGOT/AST 238 IU/L (3-35); SGPT/ALT 442 U/L (12-78); SODIUM 138 mmol/L (136-145); TOTAL PROTEIN 8.9 gm/dL (6.4-8.2)
== END 2020-07-06 08:00 | disposition home or self-care (01) ==
LOC: ED 19:14
PROVIDERS: Internal Medicine
DX: F10.129 Alcohol abuse with intoxication, unspecified (principal); F17.210 Nicotine dependence, cigarettes, uncomplicated; Z79.899 Other long term (current) drug therapy; Z98.890 Other specified postprocedural states; Y90.8 Blood alcohol level of 240 mg/100 ml or more

== ENCOUNTER → 2023-02-12 | Outpatient (CLI) | payer BC, OTHER | END | disposition home or self-care (01) | LOC: CT 00:21 | PROVIDERS: ATTEND Physician Assistant | DX: R51.9 Headache, unspecified (principal) ==